=== PATIENT | female | born 1935 | race Caucasian/White ===

== ENCOUNTER 2019-11-20 14:03 | Emergency (ER) | payer MEDICARE, SELFPAY ==
[2019-11-20 14:22] VITALS: BMI 34.7
--- NOTE | 2019-11-20 14:26 | ED_ITS ---
HPI - Back Pain/Injury General: Chief Complaint: Back Pain/Injury Stated Complaint: fall Time Seen by Provider: 11/20/19 14:22 Source: patient Mode of arrival: ambulatory Limitations: no limitations History of Present Illness: HPI Narrative: 84-year-old female who states she is mowing last Monday and believes she injured her back. She states she is had low back pain since then that is worsened. States paraspinal and has no radiation. She denies any bowel or bladder incontinence. States pain is currently a 7 out of 10 and is much worse with walking. It is improved with rest. MD elicited complaint: back pain Associated symptoms: Deny abdominal pain, chills, dysuria, fever(s), nausea or vomiting Review of Systems Const: Denies: fever(s), chills, body aches or change in appetite Eyes: Denies: blurry vision or eye discomfort ENMT: Denies: throat pain or dental pain Card: Denies: chest pain Resp: Denies: dyspnea GI: Denies: abdominal pain, nausea, vomiting or diarrhea : Denies: dysuria Musc: Reports: back pain Skin/Breast: Denies: rash Neuro: Denies: headache(s) Psych: Denies: depression Orion/Lymph: Denies: easy bruising All/Imm: Denies: urticaria PFSH ED PFSH: Social History Smoking and tobacco status: former smoker Physical Exam Const: COMMON NORMALS: no acute distress, patient oriented x3 and healthy appearing HENMT: COMMON NORMALS: normocephalic and atraumatic HEAD & SCALP: normocephalic and atraumatic Eye: COMMON NORMALS: Equal, round and reactive pupils present and EOMs intact bilaterally PUPIL: Yes Equal, round and reactive pupils present Neck/C-Spine: COMMON NORMALS: full ROM and supple Chest: COMMONS NORMALS: normal inspection of the chest and normal palpation of entire chest wall Resp: COMMON NORMALS: normal respiratory effort, No retractions, No use of accessory muscles and clear to auscultation bilaterally AUSCULTATION: clear to auscultation bilaterally Cardio: COMMON NORMALS: regular rate, regular rhythm and No murmurs present (Cardio) RATE: regular rate RHYTHM: regular rhythm GI: COMMON NORMALS: Normal to inspection, nondistended, normoactive bowel sounds present, Soft to palpation, non-tender and no masses PALPATION: Yes Soft to palpation Back/Pelvis: OTHER: Paraspinal tenderness with no midline tenderness no saddle anesthesia Extremity: COMMON NORMALS: normal to inspection and full ROM Neuro: COMMON NORMALS: patient oriented x3, moves all extremities and no focal motor deficits Psych: COMMON NORMALS: mental status grossly normal, Normal thought process present and cooperative THOUGHT PROCESS: Normal thought process present Skin: COMMON NORMALS: no rashes or lesions noted and no wounds GENERAL SKIN EXAM: no rashes or lesions noted Course Vital Signs: Vital signs: Vital Signs Temperature 98.3 F 11/20/19 14:28 Pulse Rate 91 11/20/19 15:20 Respiratory Rate 18 11/20/19 15:20 Blood Pressure 147/52 11/20/19 15:20 Pulse Oximetry 95 11/20/19 15:20 MDM - Back Pain/Injury MDM Narrative: Medical decision making narrative: 10-year-old presents here with lumbar pain is likely muscular in nature. Patient has no signs of cord compression or epidural abscess. Patient placed on Naprosyn and Robaxin is to follow-up with primary care doctor next week. She is to return if worsening. Imaging Data^: X-ray lumbar: Attestation: I personally reviewed and interpreted this imaging study as follows: My impression: No acute abnormalities Discharge Plan Discharge Patient Disposition: Home, Self-Care Clinical Impression: Strain of lumbar region Qualifiers: Encounter type: initial encounter Qualified Code(s): S39.012A - Strain of muscle, fascia and tendon of lower back, initial encounter Condition: Stable Prescriptions: New Robaxin-750 750 mg tablet 750 mg PO Q6H Qty: 30 RF: 0 Naprosyn 500 mg tablet 500 mg PO BID PRN (Reason: pain) Qty: 20 RF: 0 No Action meclizine 25 mg tablet 25 mg PO QID RF: 0 potassium chloride [Klor-Con 10] 10 mEq tablet extended release 10 meq PO DAILY RF: 0 albuterol sulfate 2.5 mg /3 mL (0.083 %) solution for nebulization 2.5 mg INHALATION Q4H PRNRF: 0 Discharge Orders: Discharge Order (Routine); Ordered 11/20/19 Ordered By: Suraj Sal Referrals: Raymundo Prasad [Primary Care Provider] - Discharge Diet: Advance as tolerated Discharge Activity: Resume usual activity Patient Instructions: Low Back Strain (ED), Acute Low Back Pain (ED) Discharge Date/Time: 11/20/19 15:20 Coding Level of Care Code ED Workers' Compensation Claims Examiner for Evangelista Fwjana Exam Comprehensive
--- NOTE | 2019-11-20 14:26 | XR_ITS ---
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 Mild compression changes of th e L5 vertebra seen. There is mild compression changes also seen of the L2 vertebra. There is spurring anteriorly [id number]. There is heavy arteriosclerotic changes of the aorta. XR/XR lumbar spine 2-3V* [id number] IMPRESSION: Compression changes L5 and mild compression L2. Degenerate changes of the lumbar spine.
[2019-11-20 14:28] VITALS: BP 162/67; PULSE 90; RESP 18; TEMP 36.8; O2SAT 93
[2019-11-20] MEDS: methocarbamol 750 mg Tablet PO (14:56)
[2019-11-20] MEDS: ketorolac 30 mg/mL INJ 15 MG IM (14:58)
[2019-11-20 15:20] VITALS: BP 147/52; PULSE 91; RESP 18; O2SAT 95
== END 2019-11-20 15:20 | disposition home or self-care (01) ==
PROVIDERS: Emergency Provider Emergency Medicine; PCP Family Medicine
DX: S39.012A Strain of muscle, fascia and tendon of lower back, initial encounter (principal); X58.XXXA Exposure to other specified factors, initial encounter; Z87.891 Personal history of nicotine dependence
CPT/HCPCS: 12345; 72100; 96372; 99281; 99283; J1885

== ENCOUNTER 2019-12-22 07:50 | Emergency (ER) | payer MEDICARE, SELFPAY ==
[2019-12-22 07:59] VITALS: BP 122/86; PULSE 85; RESP 18; TEMP 36.7; O2SAT 96; BMI 31.6
[2019-12-22 08:13] VITALS: BP 131/57; PULSE 86; RESP 18; O2SAT 96
--- NOTE | 2019-12-22 08:15 | XRR_ITS ---
PROCEDURE INFORMATION: Exam: XR Right Shoulder Exam date and time: 12/22/2019 8:50 AM Age: 84 years old Clinical indication: Pain; Shoulder; Right; Additional info: Fall TECHNIQUE: Imaging protocol: XR Right shoulder. Views: 2 or more views. COMPARISON: No relevant prior studies available. FINDINGS: Bones/joints: Moderate degenerative changes of the acromioclavicular joint. Degenerative changes of the glenohumeral joint Scapula normal Visualized ribs and visualized pulmonary parenchyma normal Coracoid process normal Soft tissues: Normal. XR/XR shoulder RT min 2V* [id number] IMPRESSION: Degenerative changes of the acromioclavicular joint and glenohumeral joint.
--- NOTE | 2019-12-22 08:15 | XRR_ITS ---
PROCEDURE INFORMATION: Exam: XR Pelvis Exam date and time: 12/22/2019 8:50 AM Age: 84 years old Clinical indication: Pelvic pain; Additional info: Fall TECHNIQUE: Imaging protocol: XR pelvis. Views: 1 or 2 view. COMPARISON: CT abdomen pelvis w con* [id number] 03/17/2017 5:01 PM FINDINGS: Bones/joints: osseous structures of the pelvis without an acute process. rami are intact. Sacroiliac joints without separation/diastases/fracture. Iliac bones unremarkable/noncontributory Degenerative changes within the hips: Degenerative changes within the visualized portions of the caudal aspect of the lumbar spine. Moderate to severe Soft tissues: Unremarkable. XR/XR pelvis 1-2V* [id number] IMPRESSION: No acute process.
--- NOTE | 2019-12-22 08:15 | XRR_ITS ---
PROCEDURE INFORMATION: Exam: XR Lumbosacral Spine, 2 or 3 Views Exam date and time: 12/22/2019 8:50 AM Age: 84 years old Clinical indication: Low back pain; Additional info: Fall TECHNIQUE: Imaging protocol: XR of the lumbosacral spine, 2 or 3 views. COMPARISON: CR XR lumbar spine 2-3V* [id number] 11/20/2019 2:36 PM FINDINGS: Vertebrae: Severe diffuse degenerative disc disease reflected as severe decrease in disc space height and anterior endplate osteophytosis. No spondylolisthesis No pars defect. Mild compression fracture of the superior endplate of L5. Soft tissues: Unremarkable. XR/XR lumbar spine 2-3V* [id number] IMPRESSION: 1. Severe diffuse degenerative disc disease. 2. Mild compression fracture of the superior endplate of L5. Previously noted. Mildly progressive.
--- NOTE | 2019-12-22 08:15 | XRR_ITS ---
PROCEDURE INFORMATION: Exam: XR Cervical Spine, 2 or 3 Views Exam date and time: 12/22/2019 8:50 AM Age: 84 years old Clinical indication: Neck pain; Additional info: Fall TECHNIQUE: Imaging protocol: XR of the cervical spine, 2 or 3 views. COMPARISON: No relevant prior studies available. FINDINGS: Vertebrae: Alignment is normal. posterior vertebral line and the spinal laminar line normal odontoid process normal no fracture degenerative disc disease most pronounced C3-C4, C4-C5, C5-C6 and C6-C7 reflected as disk space narrowing and anterior osteophyte formation. Soft tissues: Unremarkable. Other findings: Somewhat limited characterization of C7. Consider additional views versus CT. XR/XR cervical spine 3V* [id number] IMPRESSION: 1. Degenerative disc disease most pronounced C3-C4, C4-C5, C5-C6 and C6-C7 reflected as disk space narrowing and anterior osteophyte formation. 2. Somewhat limited characterization of C7. Consider additional views versus CT.
--- NOTE | 2019-12-22 08:18 | ED_ITS ---
HPI - Fall General: Chief Complaint: Fall Stated Complaint: back/hip/shoulder pain post FALL 2 days ago Time Seen by Provider: 12/22/19 08:13 History of Present Illness: HPI Narrative: Patient just gotten out of bed 2 days ago and stumbled and fell. She complains of pain to her neck, right shoulder, low back, and hips. complaint: fall Onset (ago): day(s) (2) Fall from: standing Place fall occurred: home Loss of consciousness: None Prolonged down time: no Symptoms prior to fall: none Context: tripped/slipped Location of injury: neck, back and pelvis Location of injury - extremities: Right: shoulder Severity: moderate Associated symptoms-after fall: Reports no associated symptoms Review of Systems General: Reports: 10 or more systems reviewed and unremarkable except in HPI and below PFSH ED PFSH: Social History Smoking and tobacco status: former smoker Alcohol intake: never Substance/Drug Use: never Physical Exam Const: COMMON NORMALS: no acute distress, patient oriented x3, no limitations and alert HENMT: COMMON NORMALS: normocephalic, atraumatic, external ears normal and Normal external nose present HEAD & SCALP: normocephalic and atraumatic FACE & SINUS: normal facial exam NOSE: Normal external nose present EXTERNAL EAR: Yes external ears normal MOUTH: Normal oral and palatal mucosa present Neck/C-Spine: COMMON NORMALS: full ROM, no lymphadenopathy, supple, no meningeal signs and no JVD GENERAL: Yes normal visual inspection Resp: COMMON NORMALS: normal respiratory effort, No retractions, No use of accessory muscles and clear to auscultation bilaterally AUSCULTATION: clear to auscultation bilaterally Cardio: COMMON NORMALS: no JVD, regular rate and regular rhythm RATE: regular rate RHYTHM: regular rhythm GI: COMMON NORMALS: Normal to inspection, nondistended, normoactive bowel sounds present, Soft to palpation, non-tender, No hepatosplenomegaly present and no masses INSPECTION: Yes normal to inspection AUSCULTATION: Yes normoactive bowel sounds PALPATION: Yes Soft to palpation and Yes No hepatosplenomegaly present PERCUSSION: normal to percussion : COMMON NORMALS: Yes no CVA tenderness and Yes normal external appearance BLADDER/KIDNEY EXAM: Yes no CVA tenderness Back/Pelvis: COMMON NORMALS: no CVA tenderness, thoracic and lumbar spine normal to inspection, no thoracic nor lumbar tenderness, thoraco-lumbar ROM normal and straight leg raise negative bilaterally Extremity: COMMON NORMALS: normal to inspection, full ROM, capillary refill normal, no joint enlargement, no clubbing, cyanosis or edema, no calf tenderness and no pedal edema Neuro: COMMON NORMALS: patient oriented x3, moves all extremities, no focal motor deficits and no sensory deficits noted SENSORIUM/ORIENTATION: Yes alert MENINGEAL SIGNS: Yes no meningeal signs Psych: COMMON NORMALS: mental status grossly normal, Normal thought process present, cooperative, normal affect and speech normal SPEECH: Yes normal speech THOUGHT PROCESS: Normal thought process present Skin: COMMON NORMALS: no rashes or lesions noted, no wounds, turgor normal, no jaundice, no petechiae and no mottling GENERAL SKIN EXAM: no rashes or lesions noted and turgor normal Course Vital Signs: Vital signs: Vital Signs Temperature 98.1 F 12/22/19 07:59 Pulse Rate 85 12/22/19 09:24 Respiratory Rate 16 12/22/19 09:24 Blood Pressure 131/57 12/22/19 09:24 Pulse Oximetry 96 12/22/19 09:24 MDM - Fall Imaging Data^: Xray Ortho: My impression: No acute bony abnormality or injury Discharge Plan Discharge Patient Disposition: Home, Self-Care Clinical Impression: Fall Qualifiers: Encounter type: initial encounter Qualified Code(s): W19.XXXA - Unspecified fall, initial encounter Acute cervical sprain Qualifiers: Encounter type: initial encounter Qualified Code(s): S13.9XXA - Sprain of joints and ligaments of unspecified parts of neck, initial encounter Lumbar sprain Qualifiers: Encounter type: initial encounter Qualified Code(s): S33.5XXA - Sprain of ligaments of lumbar spine, initial encounter Contusion of shoulder Qualifiers: Encounter type: initial encounter Laterality: right Qualified Code(s): S40.011A - Contusion of right shoulder, initial encounter Contusion of hip Qualifiers: Encounter type: initial encounter Laterality: unspecified laterality Qualified Code(s): S70.00XA - Contusion of unspecified hip, initial encounter Condition: Stable Prescriptions: New tramadol 50 mg tablet 50 mg PO Q6H PRN (Reason: pain) Qty: 15 RF: 0 No Action meclizine 25 mg tablet 25 mg PO QID RF: 0 potassium chloride [Klor-Con 10] 10 mEq tablet extended release 10 meq PO DAILY RF: 0 albuterol sulfate 2.5 mg /3 mL (0.083 %) solution for nebulization 2.5 mg INHALATION Q4H PRNRF: 0 Robaxin-750 750 mg tablet 750 mg PO Q6H Qty: 30 RF: 0 Naprosyn 500 mg tablet 500 mg PO BID PRN (Reason: pain) Qty: 20 RF: 0 Discharge Orders: Discharge Order (Routine); Ordered 12/22/19 Ordered By: Clint Diaz Referrals: Raymundo Prasad [Primary Care Provider] - Coding Level of Care Code ED [employer] Data Warehouse Developer for Chg Fwd Exam Comprehensive
[2019-12-22 09:24] VITALS: BP 131/57; PULSE 85; RESP 16; O2SAT 96
[2019-12-22 09:36] VITALS: BP 125/65; PULSE 83; RESP 16; TEMP 37; O2SAT 99
== END 2019-12-22 09:46 | disposition home or self-care (01) ==
PROVIDERS: Emergency Provider Family Medicine; PCP Family Medicine
DX: S33.5XXA Sprain of ligaments of lumbar spine, initial encounter (principal); S13.9XXA Sprain of joints and ligaments of unspecified parts of neck, initial encounter; S40.011A Contusion of right shoulder, initial encounter; S70.00XA Contusion of unspecified hip, initial encounter; Z87.891 Personal history of nicotine dependence; W01.0XXA Fall on same level from slipping, tripping and stumbling without subsequent striking against object, initial encounter
CPT/HCPCS: 12345; 72040; 72100; 72170; 73030; 99281; 99283

== ENCOUNTER 2020-01-09 09:08 | Emergency (ER) | payer MEDICARE, SELFPAY ==
[2020-01-09 09:19] VITALS: BP 158/79; PULSE 86; RESP 18; TEMP 36.8; O2SAT 96; BMI 34.3
--- NOTE | 2020-01-09 09:25 | CT_ITS ---
WS: [id number] CT HEAD NONCONTRAST HISTORY: headache, vomiting TECHNIQUE: Contiguous axial imaging performed through the brain in 2.5 mm imaging. Bone and soft tiss ue windows. Sagittal and coronal reformats reviewed. All CT scans at [facility] use at ast one of these dose optimization techniques: automated exposure control; mA and/or kV adjustment pe r patient size (includes targeted exams where dose is matched to clinical indication); or iterative r econstruction. DLP: 675.13 mGy.cm COMPARISON: 07/10/2010 No acute intracranial hemorrhage, midline shift or mass effect. Mild atrophy and mild chronic microvascular ischemic disease. There is a very small lacunar infarct i n the RIGHT caudate body. Ventricles: Normal size with no hydrocephalus. Paranasal sinuses: As visualized are clear. Mastoid air cells: Well pneumatized. Calvarium and scalp: Hyperostosis frontalis interna. CT/CT head wo con* [id number] IMPRESSION: 1. No acute intracranial hemorrhage or edema. 2. Very mild atrophy and chronic ischemic disease.
--- NOTE | 2020-01-09 09:40 | W.ED.HA ---
HPI - Headache General: Chief Complaint: Headache Stated Complaint: headache n/v Time Seen by Provider: 01/09/20 09:19 History of Present Illness: HPI Narrative: This patient is an 84-year-old female who presents today with headache. She said she normally does not get headaches which she said this would for about 4 days. She feels it in the front of her head and is very severe. She has had nausea with that and yesterday vomited. She also fell 6 days ago but does not think she hit her head. She hurt her foot and ankle and was seen in [place] for that. She did not have a head CT at that time. The reason she fell was dizziness which is something that she chronically has. She said she continues to be a little bit dizzy but it is not worse than her usual dizziness and in fact seems a little bit better. She denies any visual changes, numbness, tingling, weakness. MD elicited complaint: headache Pertinent past history: recent trauma (Fell but denies hitting her head) Onset (ago): day(s) (4) Associated symptoms: Deny chest pain or fever(s) Review of Systems General: Reports: 10 or more systems reviewed and unremarkable except in HPI and below Const: Denies: fever(s) or chills ENMT: Denies: odynophagia Card: Denies: chest pain or palpitations Resp: Denies: dyspnea or productive cough Neuro: Reports: headache(s) and dizziness [facility] ED PFSH: Social History Smoking and tobacco status: former smoker Alcohol intake: never Physical Exam Const: COMMON NORMALS: no acute distress, patient oriented x3, no limitations and alert GENERAL APPEARANCE: cooperative and comfortable HENMT: HEAD & SCALP: normal to inspection FACE & SINUS: normal facial exam Eye: GENERAL EYE: appearance normal, both eyes and all related structures Neck/C-Spine: COMMON NORMALS: supple, no meningeal signs and no JVD Chest: COMMONS NORMALS: normal inspection of the chest Resp: COMMON NORMALS: normal respiratory effort, No use of accessory muscles and clear to auscultation bilaterally AUSCULTATION: clear to auscultation bilaterally Cardio: COMMON NORMALS: no JVD, regular rate, regular rhythm and No murmurs present (Cardio) RATE: regular rate RHYTHM: regular rhythm GI: COMMON NORMALS: Normal to inspection, nondistended, normoactive bowel sounds present, Soft to palpation and non-tender INSPECTION: Yes normal to inspection AUSCULTATION: Yes normoactive bowel sounds PALPATION: Yes Soft to palpation Back/Pelvis: COMMON NORMALS: thoracic and lumbar spine normal to inspection Extremity: COMMON NORMALS: normal to inspection Neuro: COMMON NORMALS: patient oriented x3, moves all extremities, no focal motor deficits, no sensory deficits noted and gait normal SENSORIUM/ORIENTATION: Yes alert MENINGEAL SIGNS: Yes no meningeal signs Psych: COMMON NORMALS: mental status grossly normal, cooperative and normal affect Skin: COMMON NORMALS: no rashes or lesions noted and turgor normal GENERAL SKIN EXAM: no rashes or lesions noted and turgor normal Course ED course: Patient reports an allergy to all pain medicines. She was given Benadryl and Reglan and Toradol as well as fluids for her headache. She did report some improvement. CT of her head was done which was negative. Her neuro exam is nonfocal. She was able to ambulate in the ED without significant difficulty. She has been seeing her primary care doctor for this. Given the normal work-up today and lack of findings on neuro exam I think she safe to be discharged home to continue outpatient follow-up. Vital Signs: Vital signs: Vital Signs Temperature 98.2 F 01/09/20 09:19 Pulse Rate 78 01/09/20 12:20 Respiratory Rate 17 01/09/20 12:20 Blood Pressure 142/72 01/09/20 12:20 Pulse Oximetry 95 01/09/20 12:20 MDM - Headache Lab Data: Labs: Lab Results 01/09/20 01/09/20 01/09/20 Range/Units 09:39 10:08 10:08 WBC 6.3 (4.0-10.0) 10^3/ uL RBC 4.55 (4.1-5.3) 10^6/u L Hgb 13.7 (11.5-15.3) g/dL Hct 46.0 (37.0-47.0) % MCV 101.1 H (81-99) fL MCH 30.1 (28.0-34.0) pg MCHC 29.8 L (30.0-36.0) g/dL RDW 12.0 L (12.1-15.1) % Plt Count 248 (130-400) 10^3/c mm MPV 10.0 (7.4-10.4) fL Neut % (Auto) 75.5 % Lymph % (Auto) 15.3 % Haskell % (Auto) 6.0 % Eos % (Auto) 1.9 % Baso % (Auto) 0.8 % Neut # (Auto) 4.79 (1.8-7.7) 10^3/u L Lymph # (Auto) 1.0 (0.8-4.8) 10^3/u L Haskell # (Auto) 0.4 (0.2-0.9) 10^3/u L Eos # (Auto) 0.1 (0.0-0.8) 10^3/u L Baso # (Auto) 0.1 (0.0-0.1) 10^3/u L Nucleated RBC % (a uto) 0 % Nucleated RBCs # 0.0 /100WBC ESR 25 H (0-15) mm/hr Sodium (136-145) mmol/L Potassium (3.5-5.1) mmol/L Chloride (98-107) mmol/L Carbon Dioxide (22-29) mmol/L Anion Gap (5-19) BUN (8-23) mg/dL Creatinine (0.5-0.9) mg/dL GFR Calculation Glucose (65-115) mg/dL Calculated Osmolal ity (285-295) mOsm/k g Calcium (8.5-10.5) mg/dL Total Bilirubin (0.15-1.2) mg/dL AST (0-32) U/L ALT (0-33) U/L Alkaline Phosphata se (35-105) IU/L C-Reactive Protein (0.0-4.9) mg/L Total Protein (6.6-8.7) g/dL Albumin (3.5-5.2) g/dL Globulin (1.3-4.6) g/dL Urine Color Yellow (Yellow) Urine Appearance Clear (CLEAR) Urine pH 7.0 (5-7) Ur Specific Gravit y 1.010 (1.005-1.030) Urine Protein Neg (Negative) Urine Glucose (UA) Norm (Normal) Urine Ketones Negative (Negative) Urine Blood Neg (Negative) Urine Nitrate Negative (Negative) Urine Bilirubin Neg (NEGATIVE) Urine Urobilinogen Norm (Negative) mg/dL Ur Leukocyte Dayana ase Trace H (Negative) Urine RBC 0-4 H (0-2) /hpf Urine WBC 5-10 H (0-5) /hpf Ur Squamous Epith Cells 0-4 H (0-5) Amorphous Sediment Not Reportable Urine Bacteria 1+ H (NONE) Urine Mucus 1+ 01/09/20 Range/Units 10:08 WBC (4.0-10.0) 10^3/ uL RBC (4.1-5.3) 10^6/u L Hgb (11.5-15.3) g/dL Hct (37.0-47.0) % MCV (81-99) fL MCH (28.0-34.0) pg MCHC (30.0-36.0) g/dL RDW (12.1-15.1) % Plt Count (130-400) 10^3/c mm MPV (7.4-10.4) fL Neut % (Auto) % Lymph % (Auto) % Haskell % (Auto) % Eos % (Auto) % Baso % (Auto) % Neut # (Auto) (1.8-7.7) 10^3/u L Lymph # (Auto) (0.8-4.8) 10^3/u L Haskell # (Auto) (0.2-0.9) 10^3/u L Eos # (Auto) (0.0-0.8) 10^3/u L Baso # (Auto) (0.0-0.1) 10^3/u L Nucleated RBC % (a uto) % Nucleated RBCs # /100WBC ESR (0-15) mm/hr Sodium 140 (136-145) mmol/L Potassium 4.2 (3.5-5.1) mmol/L Chloride 103 (98-107) mmol/L Carbon Dioxide 32 H (22-29) mmol/L Anion Gap 9.2 (5-19) BUN 9 (8-23) mg/dL Creatinine 0.8 (0.5-0.9) mg/dL GFR Calculation Not Reportable Glucose 102 (65-115) mg/dL Calculated Osmolal ity 286 (285-295) mOsm/k g Calcium 8.6 (8.5-10.5) mg/dL Total Bilirubin 0.4 (0.15-1.2) mg/dL AST 16 (0-32) U/L ALT 16 (0-33) U/L Alkaline Phosphata se 102 (35-105) IU/L C-Reactive Protein 1.7 (0.0-4.9) mg/L Total Protein 6.7 (6.6-8.7) g/dL Albumin 3.8 (3.5-5.2) g/dL Globulin 2.9 (1.3-4.6) g/dL Urine Color (Yellow) Urine Appearance (CLEAR) Urine pH (5-7) Ur Specific Gravit y (1.005-1.030) Urine Protein (Negative) Urine Glucose (UA) (Normal) Urine Ketones (Negative) Urine Blood (Negative) Urine Nitrate (Negative) Urine Bilirubin (NEGATIVE) Urine Urobilinogen (Negative) mg/dL Ur Leukocyte Dayana ase (Negative) Urine RBC (0-2) /hpf Urine WBC (0-5) /hpf Ur Squamous Epith Cells (0-5) Amorphous Sediment Urine Bacteria (NONE) Urine Mucus Discharge Plan Discharge Patient Disposition: Home Clinical Impression: Dizziness Headache Qualifiers: Headache type: unspecified Headache chronicity pattern: unspecified pattern Intractability: not intractable Qualified Code(s): R51 - Headache Condition: Stable Prescriptions: No Action meclizine 25 mg tablet 25 mg PO QID PRN (Reason: unknown) RF: 0 albuterol sulfate 2.5 mg /3 mL (0.083 %) solution for nebulization 2.5 mg INHALATION Q4H PRN (Reason: unknown) RF: 0 naproxen [Naprosyn] 500 mg tablet 500 mg PO BID PRN (Reason: pain) Qty: 20 RF: 0 tramadol 50 mg tablet 50 mg PO Q6H PRN (Reason: pain) Qty: 15 RF: 0 prednisone 10 mg Tablet 10 - 20 mg PO DAILY PRN (Reason: unknown) RF: 0 tizanidine 4 mg tablet 4 mg PO BEDTIME PRN (Reason: unknown) RF: 0 ibuprofen [Advil] 200 mg Tablet 800 mg PO PRN RF: 0 potassium gluconate 595 mg (99 mg) Tablet 595 mg PO DAILY RF: 0 diclofenac sodium 1 % gel 2 g TOPICAL BID PRN (Reason: unknown) RF: 0 baclofen 5 mg tablet 5 mg PO TID PRN (Reason: unknown) RF: 0 Vitamin B-12 2 tab PO DAILY RF: 0 ondansetron HCl 4 mg tablet 4 mg PO Q6H PRN (Reason: n/v) RF: 0 oxycodone 5 mg tablet 5 mg PO Q8H PRN (Reason: Pain) RF: 0 Discharge Orders: Discharge Order (Routine); Ordered 01/09/20 Ordered By: Ruby Levi Referrals: Raymundo Prasad [Primary Care Provider] - Discharge Diet: Usual diet Discharge Activity: Resume usual activity Patient Instructions: Acute Headache (ED) Activity Restrictions/Additional Instructions: Follow up with Dr. Prasad regarding your headache and dizziness. Use care when walking - use a cane or walker for support. Return if new or worse symptoms. Coding Level of Care Code ED [employer] Kn[employer] Machine Operator for Evangelista Britt
[2020-01-09 09:54] LABS: Add Urine Microscopic? YES; Bilirubin Urine Neg (NEGATIVE); Blood Urine Neg (Negative); Glucose Urine UA Norm (Normal); Ketones Urine Negative (Negative); Leukocyte Esterase Urine Trace (Negative); Nitrate Urine Negative (Negative); Protein Urine Neg (Negative); Urine Appearance Clear (CLEAR); Urine Color Yellow (Yellow); Urobilinogen Urine Norm (Negative)
[2020-01-09 10:00] LABS: Add Urine Culture? Yes; Bacteria Urine 1+; Mucus Urine 1+; RBC Urine 0-4 /hpf (0-2); Squamous Epithelial Cell Urine 0-4 (0-5)
[2020-01-09] MEDS: metoclopramide 5 mg/mL SDV 2 mL IVP (10:10)
[2020-01-09] MEDS: diphenhydrAMINE 50 mg/mL SDV 1mL 25 MG IVP (10:12)
[2020-01-09] MEDS: sodium chloride 0.9% 500 ML 999 ML IV (10:14)
[2020-01-09 10:18] LABS: Basophils # 0.1 10^3/uL (0.0-0.1); Basophils % 0.8 %; Eosinophils # 0.1 10^3/uL (0.0-0.8); Eosinophils % 1.9 %; Hemoglobin 13.7 g/dL (11.5-15.3); Lymphocytes % 15.3 %; Mean Corpuscular HGB Conc 29.8 g/dL (30.0-36.0); Mean Corpuscular Hemoglobin 30.1 pg (28.0-34.0); Mean Corpuscular Volume 101.1 fL (81-99); Monocytes # 0.4 10^3/uL (0.2-0.9); Neutrophils # 4.79 10^3/uL (1.8-7.7); Neutrophils % 75.5 %; Nucleated Red Blood Cells % 0 %; Platelet Count 248 10^3/cmm (130-400); Red Blood Count 4.55 10^6/uL (4.1-5.3); White Blood Count 6.3 10^3/uL (4.0-10.0)
[2020-01-09 10:19] VITALS: BP 152/65; PULSE 92; O2SAT 96
[2020-01-09 10:36] LABS: Alanine Aminotransferase 16 U/L (0-33); Albumin Level 3.8 g/dL (3.5-5.2); Alkaline Phosphatase 102 IU/L (35-105); Anion Gap 9.2 (5-19); Aspartate Amino Transferase 16 U/L (0-32); Blood Urea Nitrogen 9 mg/dL (8-23); C Reactive Protein 1.7 mg/L (0.0-4.9); Calcium 8.6 mg/dL (8.5-10.5); Carbon Dioxide 32 mmol/L (22-29); Chloride 103 mmol/L (98-107); Globulin 2.9 g/dL (1.3-4.6); Glucose 102 mg/dL (65-115); Osmolality Calculated 286 mOsm/kg (285-295); Potassium 4.2 mmol/L (3.5-5.1); Sodium 140 mmol/L (136-145); Total Bilirubin 0.4 mg/dL (0.15-1.2); Total Protein 6.7 g/dL (6.6-8.7)
[2020-01-09 11:06] LABS: Erythrocyte Sedimentation Rate 25 mm/hr (0-15)
[2020-01-09 11:38] VITALS: BP 121/55; PULSE 98; RESP 18; O2SAT 95
[2020-01-09] MEDS: ketorolac 30 mg/mL INJ 15 MG IVP (12:15)
[2020-01-09] MEDS: cefTRIAXone 1,000 MG in sodium chloride 0.9% (plus) 50 ML 100 MG IV (12:17)
[2020-01-09 12:20] VITALS: BP 142/72; PULSE 78; RESP 17; O2SAT 95
[2020-01-09 14:11] VITALS: BP 149/69; PULSE 81; RESP 16; O2SAT 93
== END 2020-01-09 14:11 | disposition home or self-care (01) ==
PROVIDERS: Emergency Provider Emergency Medicine; PCP Family Medicine
DX: R51 Headache (principal); R42 Dizziness and giddiness; Z87.891 Personal history of nicotine dependence; Z79.899 Other long term (current) drug therapy
CPT/HCPCS: 12345; 70450; 80053; 81001; 85025; 85651; 86140; 87086; 96365; 96375; 99283; 99284; J0696; J1200; J1885; J2765; J7040

== ENCOUNTER 2020-07-12 06:48 | Emergency (ER) | payer MEDICARE, SELFPAY ==
[2020-07-12 06:50] VITALS: BP 138/55; PULSE 74; RESP 18; TEMP 36.4; O2SAT 93; BMI 39.4
--- NOTE | 2020-07-12 06:58 | XRR_ITS ---
PROCEDURE INFORMATION: Exam: XR Chest, 1 View Exam date and time: 07/12/2020 7:00 AM Age: 84 years old Clinical indication: Dyspnea TECHNIQUE: Imaging protocol: XR of the chest Views: 1 view. COMPARISON: [place] Chest 1 [place] [id number] 08/06/2017 3:29 PM FINDINGS: Lungs: Emphysematous change and interstitial prominence. Asymmetric left basilar airspace/pleural disease, superimposed upon prominent epicardial fat. Heart/Mediastinum: no cardiomegaly. Vasculature: calcification of the thoracic aorta. Bones/joints: osteopenia and degenerative change. Other findings: Brassiere artifact. XR/XR chest 1V portable [id number] IMPRESSION: Asymmetric left basilar airspace/pleural disease, superimposed upon prominent epicardial fat.
--- NOTE | 2020-07-12 06:59 | ECG_ITS ---
[facility] Test Date: 2020-07-12 Pat Name: Brady Nails Department: Room: Gender: Female Resourcing Advisor: : 1935 Requested By: Vineet Valenzuela Order Number: [id number] Estefani MD: JULES MCKEON Measurements Intervals [place] Rate: 67 P: 55 [place]: 125 QRS: 41 QRSD: 93 T: 35 QT: 413 QTc: 437 Interpretive Statements SINUS RHYTHM Compared to ECG 08/06/2017 15:16:26 Sinus tachycardia no longer present Ventricular premature complex(es) no longer present Electronically Signed On 07-12-2020 21:17:15 YARDAGE CONTROL CLERK by JULES MCKEON [email or web address] [email or web address] health [email or web address] hospitalAthersys/store/NU/[id number] f
--- NOTE | 2020-07-12 07:01 | ED_ITS ---
HPI - Nausea/Vomiting/Diarrhea General: Chief complaint: Nausea/Vomiting/Diarrhea Stated complaint: N/V Time Seen by Provider: 07/12/20 06:50 History of Present Illness: HPI Narrative: The patient is an 84-year-old female with past medical history chronic dizziness and COPD who comes to the ER complaining this morning she got up and had her usual dizziness when she gets out of bed however she became nauseous and vomited once. Someone living with her called an ambulance to evaluate her and she did not want to come to the hospital but was encouraged to. She was given Zofran in the ambulance and says she now feels free of nausea and back to her baseline levels of dizziness and shortness of breath. MD elicited complaint: nausea and vomiting Associated nausea: Yes Associated abdominal pain: No Location of pain: None Severity: mild Associated symtoms: Reports no associated symptoms and nausea; Denies anxiety, change in vision, chest pain, dizziness, fatigue, headache(s) or palpitations Review of Systems General: Reports: 10 or more systems reviewed and unremarkable except in HPI and below Const: Denies: fatigue Eyes: Denies: change in vision, blurry vision or eye redness ENMT: Denies: throat pain, swelling of lips/tongue, ear or mastoid pain or nasal congestion Card: Denies: chest pain, palpitations, irregular heart rhythm, edema, dyspnea on exertion or orthopnea Resp: Denies: dyspnea, productive cough or non-productive cough GI: Reports: nausea : Denies: flank pain, difficulty voiding, urinary frequency or urinary urgency Musc: Denies: neck pain, back pain, extremity pain, joint pain, joint redness, limited range of motion or muscle weakness Skin/Breast: Denies: rash, pruritus, erythema, skin pain or skin tenderness Neuro: Denies: headache(s), numbness in extremities, weakness in extremities, sensory changes, difficulty walking, dizziness, confusion or Slurred speech present Psych: Denies: anxiety or depression Endo: Denies: polyuria All/Imm: Denies: urticaria, throat swelling or tongue swelling PFSH ED PFSH: Medical History COPD (chronic obstructive pulmonary disease) Social History Smoking and tobacco status: former smoker Alcohol intake: never Physical Exam Const: COMMON NORMALS: no acute distress, average body habitus, patient oriented x3, no limitations, healthy appearing, alert and well nourished GENERAL APPEARANCE: cooperative, comfortable, well kempt and well developed ORIENTATION/CONSCIOUSNESS: Yes awake, Yes oriented to person, Yes oriented to place and Yes oriented to time HENMT: COMMON NORMALS: normocephalic, external ears normal and Normal external nose present HEAD & SCALP: normal to inspection and normocephalic NOSE: Normal external nose present EXTERNAL EAR: Yes external ears normal MOUTH: Normal oral and palatal mucosa present THROAT: posterior oropharynx normal Eye: COMMON NORMALS: Equal, round and reactive pupils present and EOMs intact bilaterally GENERAL EYE: appearance normal, both eyes and all related structures PUPIL: Yes Equal, round and reactive pupils present Neck/C-Spine: COMMON NORMALS: full ROM, no lymphadenopathy, no meningeal signs and no JVD GENERAL: Yes normal visual inspection Lymph: LYMPHATIC: no lymphadenopathy noted Chest: COMMONS NORMALS: normal inspection of the chest and normal palpation of entire chest wall Resp: COMMON NORMALS: normal respiratory effort, No retractions, No use of accessory muscles, clear to auscultation bilaterally and percussion normal EFFORT & INSPECTION: Yes able to speak in complete sentences AUSCULTATION: clear to auscultation bilaterally PERCUSSION: percussion normal Cardio: COMMON NORMALS: no JVD, regular rate, regular rhythm, S1 normal heart sound present, S2 normal heart sound present and Peripheral pulses 2+ throughout RATE: regular rate RHYTHM: regular rhythm HEART SOUNDS: S1 normal heart sound present and S2 normal heart sound present PERIPHERAL PULSES: Peripheral pulses 2+ throughout GI: COMMON NORMALS: Normal to inspection, nondistended, normoactive bowel sounds present, Soft to palpation, non-tender and no masses INSPECTION: Yes normal to inspection PALPATION: Yes Soft to palpation : COMMON NORMALS: Yes no CVA tenderness BLADDER/KIDNEY EXAM: Yes no CVA tenderness Back/Pelvis: COMMON NORMALS: no CVA tenderness, thoracic and lumbar spine normal to inspection, no thoracic nor lumbar tenderness and thoraco-lumbar ROM normal Extremity: COMMON NORMALS: normal to inspection, full ROM, capillary refill normal, no joint enlargement and no pedal edema GENERAL: Yes normal exam except as noted Neuro: COMMON NORMALS: patient oriented x3, CN's II-XII intact bilaterally, moves all extremities, no focal motor deficits, no sensory deficits noted and gait normal SENSORIUM/ORIENTATION: Yes alert, Yes oriented to person, Yes oriented to place and Yes oriented to time MENINGEAL SIGNS: Yes no meningeal signs Psych: COMMON NORMALS: mental status grossly normal, Normal thought process present, cooperative, normal affect and speech normal APPEARANCE: Yes well kempt ATTITUDE: Yes calm SPEECH: Yes normal speech THOUGHT PROCESS: Normal thought process present Skin: COMMON NORMALS: no rashes or lesions noted GENERAL SKIN EXAM: no rashes or lesions noted Course ED course: The patient arrived and vomited a couple times. She was given Zofran and her symptoms resolved. She was requesting discharge. Slight hypokalemia which she was given potassium 4. This will normalize when she quits vomiting as well. Recommended drinking lots of p.o. fluids at home and returning to the ER with worsening symptoms. Chest x-ray showed a left basilar pleural space abnormality. Previous x-ray shows identical finding but the radiologist at that time read it as normal. Will allow for outpatient follow-up of this condition. Notified the patient to get a repeat image at their primary doctor's discretion in 1 week. Discussed the small possibility it could be a cancerous process with them and they understand and will follow up. Vital Signs: Vital signs: Vital Signs Temperature 97.5 F L 07/12/20 06:50 Pulse Rate 66 07/12/20 08:40 Respiratory Rate 14 07/12/20 08:40 Blood Pressure 149/62 07/12/20 08:40 Pulse Oximetry 95 07/12/20 08:40 MDM - Nausea/Vomiting/Diarrhea Lab Data: Labs: Lab Results 07/12/20 07/12/20 07/12/20 Range/Units 06:52 06:52 06:52 WBC 8.5 (4.0-10.0) 10^3/ uL RBC 4.32 (4.1-5.3) 10^6/u L Hgb 13.3 (11.5-15.3) g/dL Hct 42.9 (37.0-47.0) % MCV 99.3 H (81-99) fL MCH 30.8 (28.0-34.0) pg MCHC 31.0 (30.0-36.0) g/dL RDW 12.1 (12.1-15.1) % Plt Count 245 (130-400) 10^3/c mm MPV 10.9 H (7.4-10.4) fL Neut % (Auto) 65.4 % Lymph % (Auto) 23.1 % Bradford % (Auto) 8.2 % Eos % (Auto) 1.9 % Baso % (Auto) 0.8 % Neut # (Auto) 5.53 (1.8-7.7) 10^3/u L Lymph # (Auto) 2.0 (0.8-4.8) 10^3/u L Bradford # (Auto) 0.7 (0.2-0.9) 10^3/u L Eos # (Auto) 0.2 (0.0-0.8) 10^3/u L Baso # (Auto) 0.1 (0.0-0.1) 10^3/u L Nucleated RBC % (a uto) 0 % Nucleated RBCs # 0.0 /100WBC Sodium 147 H (136-145) mmol/L Potassium 3.1 L (3.5-5.1) mmol/L Chloride 99 (98-107) mmol/L Carbon Dioxide 36 H (22-29) mmol/L Anion Gap 15.1 (5-19) BUN 20 (8-23) mg/dL Creatinine 1.0 H (0.5-0.9) mg/dL GFR Calculation Not Reportable Glucose 84 (65-115) mg/dL Calculated Osmolal ity 306 H (285-295) mOsm/k g Lactate (0.5-2.2) mmol/L Calcium 8.5 (8.5-10.5) mg/dL Total Bilirubin 0.3 (0.15-1.2) mg/dL AST 20 (0-32) U/L ALT 16 (0-33) U/L Alkaline Phosphata se 99 (35-105) IU/L Troponin T Baselin e 13 H (0-10) ng/L Total Protein 6.7 (6.6-8.7) g/dL Albumin 3.9 (3.5-5.2) g/dL Globulin 2.8 (1.3-4.6) g/dL Urine Color (Yellow) Urine Appearance (CLEAR) Urine pH (5-7) Ur Specific Gravit y (1.005-1.030) Urine Protein (Negative) Urine Glucose (UA) (Normal) Urine Ketones (Negative) Urine Blood (Negative) Urine Nitrate (Negative) Urine Bilirubin (Negative) Urine Urobilinogen (Negative) mg/dL Ur Leukocyte Dayana ase (Negative) 07/12/20 07/12/20 Range/Units 07:11 07:18 WBC (4.0-10.0) 10^3/ uL RBC (4.1-5.3) 10^6/u L Hgb (11.5-15.3) g/dL Hct (37.0-47.0) % MCV (81-99) fL MCH (28.0-34.0) pg MCHC (30.0-36.0) g/dL RDW (12.1-15.1) % Plt Count (130-400) 10^3/c mm MPV (7.4-10.4) fL Neut % (Auto) % Lymph % (Auto) % Bradford % (Auto) % Eos % (Auto) % Baso % (Auto) % Neut # (Auto) (1.8-7.7) 10^3/u L Lymph # (Auto) (0.8-4.8) 10^3/u L Bradford # (Auto) (0.2-0.9) 10^3/u L Eos # (Auto) (0.0-0.8) 10^3/u L Baso # (Auto) (0.0-0.1) 10^3/u L Nucleated RBC % (a uto) % Nucleated RBCs # /100WBC Sodium (136-145) mmol/L Potassium (3.5-5.1) mmol/L Chloride (98-107) mmol/L Carbon Dioxide (22-29) mmol/L Anion Gap (5-19) BUN (8-23) mg/dL Creatinine (0.5-0.9) mg/dL GFR Calculation Glucose (65-115) mg/dL Calculated Osmolal ity (285-295) mOsm/k g Lactate 1.0 (0.5-2.2) mmol/L Calcium (8.5-10.5) mg/dL Total Bilirubin (0.15-1.2) mg/dL AST (0-32) U/L ALT (0-33) U/L Alkaline Phosphata se (35-105) IU/L Troponin T Baselin e (0-10) ng/L Total Protein (6.6-8.7) g/dL Albumin (3.5-5.2) g/dL Globulin (1.3-4.6) g/dL Urine Color Yellow (Yellow) Urine Appearance Clear (CLEAR) Urine pH 6.5 (5-7) Ur Specific Gravit y 1.015 (1.005-1.030) Urine Protein Neg (Negative) Urine Glucose (UA) Norm (Normal) Urine Ketones Negative (Negative) Urine Blood Neg (Negative) Urine Nitrate Negative (Negative) Urine Bilirubin Neg (Negative) Urine Urobilinogen Norm (Negative) mg/dL Ur Leukocyte Dayana ase Negative (Negative) Discharge Plan Discharge Patient Disposition: Home Clinical Impression: Gastroenteritis Condition: Stable Prescriptions: New Zofran 4 mg tablet 4 mg PO Q8H 5 Days Qty: 15 RF: 0 No Action meclizine 25 mg tablet 25 mg PO QID PRN (Reason: unknown) RF: 0 albuterol sulfate 2.5 mg /3 mL (0.083 %) solution for nebulization 2.5 mg INHALATION Q4H PRN (Reason: unknown) RF: 0 furosemide [Lasix] 20 mg tablet 10 mg PO DAILY@0800 RF: 0 naproxen [Naprosyn] 500 mg tablet 500 mg PO BID PRN (Reason: pain) Qty: 20 RF: 0 prednisone 10 mg Tablet 10 - 20 mg PO DAILY PRN (Reason: unknown) RF: 0 tizanidine 4 mg tablet 4 mg PO BEDTIME PRN (Reason: unknown) RF: 0 ibuprofen [Advil] 200 mg Tablet 800 mg PO PRN PRN (Reason: Pain) RF: 0 potassium gluconate 595 mg (99 mg) Tablet 595 mg PO DAILY RF: 0 diclofenac sodium 1 % gel 2 g TOPICAL BID PRN (Reason: unknown) RF: 0 baclofen 5 mg tablet 5 mg PO TID PRN (Reason: unknown) RF: 0 Vitamin B-12 2 tab PO DAILY RF: 0 Motrin 100 mg Tablet 200 mg PO Q6H PRN (Reason: Pain) RF: 0 metoprolol succinate 25 mg tablet extended release 24 hr 25 mg PO DAILY RF: 0 albuterol sulfate 90 mcg/actuation HFA aerosol inhaler 2 puff INHALATION Q6H PRN (Reason: Shortness Of Breath) RF: 0 Advair Diskus 100-50 mcg/dose blister with device 1 inh inhalation BID@0800,1600 RF: 0 Discharge Orders: Discharge ED (Routine); Ordered 07/12/20 Ordered By: Vineet Valenzuela Referrals: Raymundo Prasad [Primary Care Provider] - Discharge Diet: Advance as tolerated Discharge Activity: Resume usual activity Patient Instructions: Acute Nausea and Vomiting (ED) Activity Restrictions/Additional Instructions: You have been vomiting. Please take the Zofran to help with your nausea and drink lots of fluids. Return to the ER with worsening symptoms. Of note on your chest x-ray there was a small abnormality in your left lung base. Please follow-up with your primary care physician in 1 week to get this checked and possibly get a CT of your chest at your primary care doctors discretion. Keep in mind there is a small possibility this could be a cancer so make sure you follow-up and get a repeat image. Return to the ER with worsening symptoms at any time. Coding Level of Care Code ED Senior Validation Engineer for [employer] F[employer] Exam Comprehensive
[2020-07-12 07:04] VITALS: BP 140/50; PULSE 75; RESP 15; O2SAT 91
[2020-07-12 07:07] LABS: Basophils # 0.1 10^3/uL (0.0-0.1); Basophils % 0.8 %; Eosinophils # 0.2 10^3/uL (0.0-0.8); Eosinophils % 1.9 %; Hematocrit 42.9 % (37.0-47.0); Hemoglobin 13.3 g/dL (11.5-15.3); Lymphocytes % 23.1 %; Mean Corpuscular Hemoglobin 30.8 pg (28.0-34.0); Mean Corpuscular Volume 99.3 fL (81-99); Mean Platelet Volume 10.9 fL (7.4-10.4); Monocytes # 0.7 10^3/uL (0.2-0.9); Monocytes % 8.2 %; Neutrophils # 5.53 10^3/uL (1.8-7.7); Neutrophils % 65.4 %; Nucleated Red Blood Cells % 0 %; Platelet Count 245 10^3/cmm (130-400); Red Blood Count 4.32 10^6/uL (4.1-5.3); Red Cell Distribution Width 12.1 % (12.1-15.1); White Blood Count 8.5 10^3/uL (4.0-10.0)
[2020-07-12 07:34] LABS: Alanine Aminotransferase 16 U/L (0-33); Albumin Level 3.9 g/dL (3.5-5.2); Alkaline Phosphatase 99 IU/L (35-105); Anion Gap 15.1 (5-19); Aspartate Amino Transferase 20 U/L (0-32); Blood Urea Nitrogen 20 mg/dL (8-23); Calcium 8.5 mg/dL (8.5-10.5); Carbon Dioxide 36 mmol/L (22-29); Chloride 99 mmol/L (98-107); Globulin 2.8 g/dL (1.3-4.6); Glucose 84 mg/dL (65-115); Osmolality Calculated 306 mOsm/kg (285-295); Potassium 3.1 mmol/L (3.5-5.1); Sodium 147 mmol/L (136-145); Total Bilirubin 0.3 mg/dL (0.15-1.2); Total Protein 6.7 g/dL (6.6-8.7)
[2020-07-12 07:36] LABS: Troponin(5th) Baseline 13 ng/L (0-10)
[2020-07-12] MEDS: ondansetron 2 mg/ML SDV 2 mL 4 MG IVP (07:39)
[2020-07-12 07:47] LABS: Add Urine Microscopic? NO
[2020-07-12 07:49] LABS: Bilirubin Urine Neg (Negative); Blood Urine Neg (Negative); Glucose Urine UA Norm (Normal); Ketones Urine Negative (Negative); Leukocyte Esterase Urine Negative (Negative); Nitrate Urine Negative (Negative); Protein Urine Neg (Negative); Specific Gravity, Urine 1.015 (1.005-1.030); Urine Appearance Clear (CLEAR); Urine Color Yellow (Yellow); Urobilinogen Urine Norm (Negative); pH Urine 6.5 (5-7)
[2020-07-12] MEDS: sodium chloride 0.9% 500 ML IV (07:53)
[2020-07-12 08:40] VITALS: BP 149/62; PULSE 66; RESP 14; O2SAT 95
[2020-07-12 10:10] VITALS: BP 131/46; PULSE 76; RESP 18; O2SAT 94
== END 2020-07-12 10:10 | disposition home or self-care (01) ==
PROVIDERS: Emergency Provider Family Medicine; PCP Family Medicine
DX: K52.9 Noninfective gastroenteritis and colitis, unspecified (principal); J44.9 Chronic obstructive pulmonary disease, unspecified; Z87.891 Personal history of nicotine dependence
CPT/HCPCS: 12345; 71045; 80053; 81003; 83605; 84484; 85025; 93005; 96361; 96374; 99282; 99283; J2405; J7040

== ENCOUNTER 2020-07-13 12:27 | Emergency (ER) | payer MEDICARE, SELFPAY ==
--- NOTE | 2020-07-13 12:28 | XRR_ITS ---
PROCEDURE INFORMATION: Exam: XR Chest, 1 View Exam date and time: 07/13/2020 12:41 PM Age: 84 years old Clinical indication: Pain; Shortness of breath; Other: Tightness; Additional info: Cp TECHNIQUE: Imaging protocol: XR of the chest Views: 1 view. COMPARISON: CR (CHEST, ) 07/12/2020 6:59 AM FINDINGS: Lungs: No acute pulmonary infiltrates are seen. Pleural spaces: Unremarkable. No pleural effusion. No pneumothorax. Heart/Mediastinum: The heart is normal for the AP lordotic projection. There is calcification of the aorta. Bones/joints: Unremarkable. XR/XR chest 1V portable [id number] IMPRESSION: No significant cardiopulmonary abnormality.
--- NOTE | 2020-07-13 12:28 | ECG_ITS ---
[facility] Test Date: 2020-07-13 Pat Name: Brady Nails Department: Room: Gender: Female Early Childhood Teacher Assistant: VANITA HEARTB: 1935 Requested By: Suraj Sal Order Number: [id number] Reading MD: JULES MCKEON Measurements Intervals [place] Rate: 82 P: 62 [place]: 121 QRS: 38 QRSD: 89 T: 37 QT: 361 QTc: 423 Interpretive Statements SINUS RHYTHM Compared to ECG 07/12/2020 08:10:52 No significant changes Electronically Signed On 07-13-2020 19:29:33 CLIMATOLOGY TEACHER by JULES MCKEON [id number]
[2020-07-13 12:45] VITALS: BP 130/70; PULSE 86; RESP 14; TEMP 36.6; O2SAT 97; BMI 39.4
--- NOTE | 2020-07-13 14:28 | ECG_ITS ---
[facility] Test Date: 2020-07-13 Pat Name: Brady Nails Department: Room: Gender: Female Technical Analyst: : 1935 Requested By: Suraj Sal Order Number: [id number] Reading MD: JULES MCKEON Measurements Intervals [place] Rate: 83 P: 50 [place]: 120 QRS: 31 QRSD: 90 T: 37 QT: 363 QTc: 428 Interpretive Statements SINUS RHYTHM Compared to ECG 07/13/2020 13:03:26 No significant changes Electronically Signed On 07-13-2020 19:31:54 MANAGER TECHNICAL by JULES MCKEON [id number]
--- NOTE | 2020-07-13 16:29 | CTR_ITS ---
PROCEDURE INFORMATION: Exam: CT Head Without Contrast Exam date and time: 07/13/2020 4:31 PM Age: 84 years old Clinical indication: Dizziness and visual disturbance; Patient HX: Dizziness, nausea, blurred vision, weakness; Additional info: Vertigo TECHNIQUE: Imaging protocol: Computed tomography of the head without contrast. Radiation optimization: All CT scans at this facility use at least one of these dose optimization techniques: automated exposure control; mA and/or kV adjustment per patient size (includes targeted exams where dose is matched to clinical indication); or iterative reconstruction. COMPARISON: CT head wo con* [id number] 01/09/2020 9:40 AM RADIATION DOSE METRICS: Total DLP (mGy-cm): 721.89 FINDINGS: Brain: There is mild cerebral atrophy. No intracranial hemorrhage. No intracranial mass. No acute brain ischemia identified. Hernandez matter and white matter interfaces are preserved. No midline shift of brain. Cerebral ventricles: No ventriculomegaly. Bones/joints: Unremarkable. No acute fracture. Paranasal sinuses: Visualized sinuses are unremarkable. No fluid levels. Mastoid air cells: Visualized mastoid air cells are well aerated. Orbital cavity: Orbits are symmetric and unremarkable. Vasculature: Intracranial atherosclerosis. Soft tissues: Unremarkable. CT/CT head wo con* [id number] IMPRESSION: 1. Negative for acute intracranial abnormality. 2. No significant change from prior 01/09/2020. Radiation Dose CTDIVOL = (mGy): DLP = 721.89 (mGy-cm)
[2020-07-13 16:46] VITALS: BP 130/53; PULSE 87; RESP 15; O2SAT 97
[2020-07-13 17:06] LABS: Basophils # 0.1 10^3/uL (0.0-0.1); Basophils % 0.8 %; Eosinophils # 0.1 10^3/uL (0.0-0.8); Eosinophils % 1.9 %; Hematocrit 43.6 % (37.0-47.0); Hemoglobin 13.2 g/dL (11.5-15.3); Lymphocytes # 1.5 10^3/uL (0.8-4.8); Lymphocytes % 23.5 %; Mean Corpuscular HGB Conc 30.3 g/dL (30.0-36.0); Mean Corpuscular Hemoglobin 30.8 pg (28.0-34.0); Mean Corpuscular Volume 101.6 fL (81-99); Mean Platelet Volume 10.6 fL (7.4-10.4); Monocytes # 0.5 10^3/uL (0.2-0.9); Monocytes % 7.7 %; Neutrophils # 4.16 10^3/uL (1.8-7.7); Neutrophils % 65.6 %; Nucleated Red Blood Cells % 0 %; Platelet Count 252 10^3/cmm (130-400); Red Blood Count 4.29 10^6/uL (4.1-5.3); Red Cell Distribution Width 12.2 % (12.1-15.1); White Blood Count 6.3 10^3/uL (4.0-10.0)
[2020-07-13] MEDS: meclizine 25 mg tablet 50 MG PO (17:16)
[2020-07-13] MEDS: sodium chloride 0.9% 1,000 ML 999 ML IV (17:16)
[2020-07-13 17:19] VITALS: BP 124/45; PULSE 102; RESP 21; O2SAT 93
--- NOTE | 2020-07-13 17:22 | ED_ITS ---
HPI - Dizziness General: Chief Complaint: Dizziness Stated Complaint: Dizziness, Chest Pain, vomiting Time Seen by Provider: 07/13/20 16:13 Source: patient Mode of arrival: ambulatory Limitations: no limitations History of Present Illness: HPI Narrative: 84-year-old female states she has been having fluttering in her chest along with dizziness. Patient states that she has jumping in her chest throughout the night. She denies any pain currently. She denies any fever or shortness of breath. She states she has had vertigo for months and does take meclizine and that seems to help. She denies any vomiting or diarrhea. Associated symptoms: Reports nausea and vomiting; Denies chest pain, chills or headache(s) Review of Systems Const: Denies: fever(s), chills, body aches or change in appetite Eyes: Denies: blurry vision or eye discomfort ENMT: Denies: throat pain or dental pain Card: Denies: chest pain Resp: Denies: dyspnea GI: Reports: nausea and vomiting; Denies: abdominal pain or diarrhea : Denies: dysuria Musc: Denies: neck pain or back pain Skin/Breast: Denies: rash Neuro: Reports: dizziness; Denies: headache(s) Psych: Denies: depression Orion/Lymph: Denies: easy bruising All/Imm: Denies: urticaria PFSH ED PFSH: Medical History COPD (chronic obstructive pulmonary disease) Social History Smoking and tobacco status: former smoker Alcohol intake: never Physical Exam Const: COMMON NORMALS: no acute distress, patient oriented x3 and healthy appearing HENMT: COMMON NORMALS: normocephalic and atraumatic HEAD & SCALP: normocephalic and atraumatic Eye: COMMON NORMALS: Equal, round and reactive pupils present and EOMs intact bilaterally PUPIL: Yes Equal, round and reactive pupils present Neck/C-Spine: COMMON NORMALS: full ROM and supple Chest: COMMONS NORMALS: normal inspection of the chest and normal palpation of entire chest wall Resp: COMMON NORMALS: normal respiratory effort, No retractions, No use of accessory muscles and clear to auscultation bilaterally AUSCULTATION: clear to auscultation bilaterally Cardio: COMMON NORMALS: regular rate, regular rhythm and No murmurs present (Cardio) RATE: regular rate RHYTHM: regular rhythm GI: COMMON NORMALS: Normal to inspection, nondistended, normoactive bowel sounds present, Soft to palpation, non-tender and no masses PALPATION: Yes Soft to palpation Extremity: COMMON NORMALS: normal to inspection and full ROM Neuro: COMMON NORMALS: patient oriented x3, moves all extremities and no focal motor deficits Psych: COMMON NORMALS: mental status grossly normal, Normal thought process present and cooperative THOUGHT PROCESS: Normal thought process present Skin: COMMON NORMALS: no rashes or lesions noted and no wounds GENERAL SKIN EXAM: no rashes or lesions noted Course Vital Signs: Vital signs: Vital Signs Temperature 97.9 F 07/13/20 12:45 Pulse Rate 83 07/13/20 18:29 Respiratory Rate 20 H 07/13/20 18:29 Blood Pressure 133/48 07/13/20 18:29 Pulse Oximetry 97 07/13/20 18:29 MDM - Dizziness MDM Narrative: Medical decision making narrative: Patient presents here with vertigo along with chest pain that happened last night. Initial troponin was 16. I did 1 to hold her for a 2-hour troponin but she states the roads are getting icy and she cannot stay any longer whatsoever. Her dizziness is resolved and her CT head here is normal. We will discharge at this time and she is return if worsening. She understands agrees to plan. Lab Data: Labs: Lab Results 07/13/20 07/13/20 07/13/20 Range/Units 16:35 16:35 16:35 WBC 6.3 (4.0-10.0) 10^3/ uL RBC 4.29 (4.1-5.3) 10^6/u L Hgb 13.2 (11.5-15.3) g/dL Hct 43.6 (37.0-47.0) % MCV 101.6 H (81-99) fL MCH 30.8 (28.0-34.0) pg MCHC 30.3 (30.0-36.0) g/dL RDW 12.2 (12.1-15.1) % Plt Count 252 (130-400) 10^3/c mm MPV 10.6 H (7.4-10.4) fL Neut % (Auto) 65.6 % Lymph % (Auto) 23.5 % [place] % (Auto) 7.7 % Eos % (Auto) 1.9 % Baso % (Auto) 0.8 % Neut # (Auto) 4.16 (1.8-7.7) 10^3/u L Lymph # (Auto) 1.5 (0.8-4.8) 10^3/u L [place] # (Auto) 0.5 (0.2-0.9) 10^3/u L Eos # (Auto) 0.1 (0.0-0.8) 10^3/u L Baso # (Auto) 0.1 (0.0-0.1) 10^3/u L Nucleated RBC % (a uto) 0 % Nucleated RBCs # 0.0 /100WBC PT 13.40 (12.1-14.9) SECO NDS INR 0.99 (0.8-1.2) APTT 23.3 L (23.9-36.7) SECO NDS Sodium 143 (136-145) mmol/L Potassium 3.3 L (3.5-5.1) mmol/L Chloride 102 (98-107) mmol/L Carbon Dioxide 34 H (22-29) mmol/L Anion Gap 10.3 (5-19) BUN 13 (8-23) mg/dL Creatinine 0.8 (0.5-0.9) mg/dL GFR Calculation Not Reportable Glucose 92 (65-115) mg/dL Calculated Osmolal ity 296 H (285-295) mOsm/k g Calcium 9.2 (8.5-10.5) mg/dL Total Bilirubin 0.4 (0.15-1.2) mg/dL AST 20 (0-32) U/L ALT 16 (0-33) U/L Alkaline Phosphata se 90 (35-105) IU/L Troponin T Baselin e (0-10) ng/L Total Protein 6.4 L (6.6-8.7) g/dL Albumin 3.8 (3.5-5.2) g/dL Globulin 2.6 (1.3-4.6) g/dL 07/13/20 Range/Units 16:35 WBC (4.0-10.0) 10^3/ uL RBC (4.1-5.3) 10^6/u L Hgb (11.5-15.3) g/dL Hct (37.0-47.0) % MCV (81-99) fL MCH (28.0-34.0) pg MCHC (30.0-36.0) g/dL RDW (12.1-15.1) % Plt Count (130-400) 10^3/c mm MPV (7.4-10.4) fL Neut % (Auto) % Lymph % (Auto) % [place] % (Auto) % Eos % (Auto) % Baso % (Auto) % Neut # (Auto) (1.8-7.7) 10^3/u L Lymph # (Auto) (0.8-4.8) 10^3/u L [place] # (Auto) (0.2-0.9) 10^3/u L Eos # (Auto) (0.0-0.8) 10^3/u L Baso # (Auto) (0.0-0.1) 10^3/u L Nucleated RBC % (a uto) % Nucleated RBCs # /100WBC PT (12.1-14.9) SECO NDS INR (0.8-1.2) APTT (23.9-36.7) SECO NDS Sodium (136-145) mmol/L Potassium (3.5-5.1) mmol/L Chloride (98-107) mmol/L Carbon Dioxide (22-29) mmol/L Anion Gap (5-19) BUN (8-23) mg/dL Creatinine (0.5-0.9) mg/dL GFR Calculation Glucose (65-115) mg/dL Calculated Osmolal ity (285-295) mOsm/k g Calcium (8.5-10.5) mg/dL Total Bilirubin (0.15-1.2) mg/dL AST (0-32) U/L ALT (0-33) U/L Alkaline Phosphata se (35-105) IU/L Troponin T Baselin e 13 H (0-10) ng/L Total Protein (6.6-8.7) g/dL Albumin (3.5-5.2) g/dL Globulin (1.3-4.6) g/dL Imaging Data^: CT Head: Attestation: I personally reviewed and interpreted this imaging study as follows: Radiologist's impression: [facility] [address] [place] [address]. [place] [address] CT Scan Report Signed Patient: Brady Nails Unit #: [id number] : 1935 Age/Sex: 84 / F ADM Date: 07/13/20 Loc: ER Room/Bed: Attending Dr: Ordering Provider/Ordering MD: Suraj Sal MD Date of Service: 07/13/20 Procedure(s): CT head wo con* [id number] Accession Number(s): [id number] Report Number: [id number] PROCEDURE INFORMATION: Exam: CT Head Without Contrast Exam date and time: 07/13/2020 4:31 PM Age: 84 years old Clinical indication: Dizziness and visual disturbance; Patient HX: Dizziness, nausea, blurred vision, weakness; Additional info: Vertigo TECHNIQUE: Imaging protocol: Computed tomography of the head without contrast. Radiation optimization: All CT scans at this facility use at least one of these dose optimization techniques: automated exposure control; mA and/or kV adjustment per patient size (includes targeted exams where dose is matched to clinical indication); or iterative reconstruction. COMPARISON: CT head wo con* [id number] 01/09/2020 9:40 AM RADIATION DOSE METRICS: Total DLP (mGy-cm): 721.89 FINDINGS: Brain: There is mild cerebral atrophy. No intracranial hemorrhage. No intracranial mass. No acute brain ischemia identified. Hernandez matter and white matter interfaces are preserved. No midline shift of brain. Cerebral ventricles: No ventriculomegaly. Bones/joints: Unremarkable. No acute fracture. Paranasal sinuses: Visualized sinuses are unremarkable. No fluid levels. Mastoid air cells: Visualized mastoid air cells are well aerated. Orbital cavity: Orbits are symmetric and unremarkable. Vasculature: Intracranial atherosclerosis. Soft tissues: Unremarkable. CT/CT head wo con* [id number] IMPRESSION: 1. Negative for acute intracranial abnormality. 2. No significant change from prior 01/09/2020. CXR: Attestation: I personally reviewed and interpreted this imaging study as follows: Radiologist's impression: [address] [address] XRay Report Signed Patient: Brady Nails Unit #: [id number] : 1935 Age/Sex: 84 / F ADM Date: 07/13/20 Loc: ER Room/Bed: Attending Dr: Ordering Provider/Ordering MD: Suraj Sal MD Date of Service: 07/13/20 Procedure(s): XR chest 1V portable [id number] Accession Number(s): [id number] Report Number: [id number] PROCEDURE INFORMATION: Exam: XR Chest, 1 View Exam date and time: 07/13/2020 12:41 PM Age: 84 years old Clinical indication: Pain; Shortness of breath; Other: Tightness; Additional info: Cp TECHNIQUE: Imaging protocol: XR of the chest Views: 1 view. COMPARISON: CR (CHEST, ) 07/12/2020 6:59 AM FINDINGS: Lungs: No acute pulmonary infiltrates are seen. Pleural spaces: Unremarkable. No pleural effusion. No pneumothorax. Heart/Mediastinum: The heart is normal for the AP lordotic projection. There is calcification of the aorta. Bones/joints: Unremarkable. XR/XR chest 1V portable [id number] IMPRESSION: No significant cardiopulmonary abnormality. EKG Data^: EKG 1: Attestation: I personally reviewed and interpreted this EKG as follows: EKG interpretation date: 07/13/20 EKG interpretation time: 13:03 Interpretation: nsr hr [address] or t wave abnormalities qrs 89 qtc 400 EKG 2: Attestation: I personally reviewed and interpreted this EKG as follows: EKG interpretation date: 07/13/20 EKG interpretation time: 14:58 Interpretation: nsr hr [address] or t wave abnormalities qrs 90 qtc 403 Discharge Plan Discharge Patient Disposition: Home Clinical Impression: Vertigo, Chest pain Condition: Stable Prescriptions: New ondansetron 4 mg tablet,disintegrating 4 mg PO Q6H PRN (Reason: nausea and vomiting) Qty: 14 RF: 0 No Action meclizine 25 mg tablet 25 mg PO QID PRN (Reason: unknown) RF: 0 albuterol sulfate 2.5 mg /3 mL (0.083 %) solution for nebulization 2.5 mg INHALATION Q4H PRN (Reason: unknown) RF: 0 furosemide [Lasix] 20 mg tablet 10 mg PO DAILY@0800 RF: 0 naproxen [Naprosyn] 500 mg tablet 500 mg PO BID PRN (Reason: pain) Qty: 20 RF: 0 prednisone 10 mg Tablet 10 - 20 mg PO DAILY PRN (Reason: unknown) RF: 0 tizanidine 4 mg tablet 4 mg PO BEDTIME PRN (Reason: unknown) RF: 0 ibuprofen [Advil] 200 mg Tablet 800 mg PO PRN PRN (Reason: Pain) RF: 0 potassium gluconate 595 mg (99 mg) Tablet 595 mg PO DAILY RF: 0 diclofenac sodium 1 % gel 2 g TOPICAL BID PRN (Reason: unknown) RF: 0 baclofen 5 mg tablet 5 mg PO TID PRN (Reason: unknown) RF: 0 Vitamin B-12 2 tab PO DAILY RF: 0 Motrin 100 mg Tablet 200 mg PO Q6H PRN (Reason: Pain) RF: 0 metoprolol succinate 25 mg tablet extended release 24 hr 25 mg PO DAILY RF: 0 albuterol sulfate 90 mcg/actuation HFA aerosol inhaler 2 puff INHALATION Q6H PRN (Reason: Shortness Of Breath) RF: 0 Zofran 4 mg tablet 4 mg PO Q8H 5 Days Qty: 15 RF: 0 Advair Diskus 100-50 mcg/dose blister with device 1 inh inhalation BID@0800,1600 RF: 0 Discharge Orders: Discharge ED (Routine); Ordered 07/13/20 Ordered By: Suraj Sal Referrals: Raymundo Prasad [Primary Care Provider] - 1-3 days Discharge Diet: Advance as tolerated Discharge Activity: Resume usual activity Patient Instructions: Chest Pain (ED) Coding Level of Care Code ED [employer] [facility] Fwd Exam Comprehensive
[2020-07-13 17:23] LABS: INR 0.99 (0.8-1.2)
[2020-07-13 17:24] LABS: Partial Thromboplastin Time 23.3 SECONDS (23.9-36.7)
[2020-07-13 17:29] LABS: Alanine Aminotransferase 16 U/L (0-33); Albumin Level 3.8 g/dL (3.5-5.2); Alkaline Phosphatase 90 IU/L (35-105); Anion Gap 10.3 (5-19); Aspartate Amino Transferase 20 U/L (0-32); Blood Urea Nitrogen 13 mg/dL (8-23); Calcium 9.2 mg/dL (8.5-10.5); Carbon Dioxide 34 mmol/L (22-29); Chloride 102 mmol/L (98-107); Globulin 2.6 g/dL (1.3-4.6); Glucose 92 mg/dL (65-115); Osmolality Calculated 296 mOsm/kg (285-295); Potassium 3.3 mmol/L (3.5-5.1); Sodium 143 mmol/L (136-145); Total Bilirubin 0.4 mg/dL (0.15-1.2); Total Protein 6.4 g/dL (6.6-8.7)
[2020-07-13 17:31] LABS: Troponin(5th) Baseline 13 ng/L (0-10)
[2020-07-13 18:29] VITALS: BP 133/48; PULSE 83; RESP 20; O2SAT 97
== END 2020-07-13 18:29 | disposition home or self-care (01) ==
PROVIDERS: Emergency Provider Emergency Medicine; PCP Family Medicine
DX: R42 Dizziness and giddiness (principal); R07.9 Chest pain, unspecified; J44.9 Chronic obstructive pulmonary disease, unspecified; Z87.891 Personal history of nicotine dependence
CPT/HCPCS: 12345; 70450; 71045; 80053; 84484; 85025; 85610; 85730; 93005; 96360; 99283; 99284; J7030; J8597

== ENCOUNTER 2020-08-26 14:14 | Outpatient (CLI) | payer MEDICARE, SELFPAY ==
--- NOTE | 2020-08-26 14:00 | CT_ITS ---
WS: [id number] CT CHEST TECHNIQUE: Noncontrast CT of the chest with coronal and sagittal reformatted images. CLINICAL INFORMATION: R93.89 - Abnormal findings on diagnostic imaging of other specified body struct ures COMPARISON: Radiograph July 13, 2020 DLP: 933.[address] scans at [facility] use at least one of these dose optimization techniques: automat ed exposure control; mA and/or kV adjustment per patient size (includes targeted exams where dose is matched to clinical indication); or iterative reconstruction. FINDINGS: Moderate chronic emphysematous changes. No acute pulmonary infiltrates. No consolidation pleural flui d. No suspicious pulmonary parenchymal abnormalities. Normal caliber thoracic aorta. Mild to moderate aortic calcification No mediastinal or hilar lymphadenopathy. No axillary lymphadenopathy. Adrenal glands are normal. Cholecystectomy clips. Normal GE junction. Moderate thoracic kyphosis. 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 This appears similar to 2017. CT/CT chest wo con [id number] IMPRESSION: 1. Prominent fat pad at the cardiophrenic angle as seen on the recent radiogra ph. 2. Mild chronic emphysematous changes. No suspicious parenchymal opacities. 3. No focal pneumonia or pleural fluid. 4. No mediastinal or hilar lymphadenopathy. 5. Aortic calcification.
== END 2020-08-26 14:15 | disposition home or self-care (01) ==
LOC: RADWPI 14:18
PROVIDERS: PCP Registered Nurse; Visit Provider Registered Nurse
DX: R93.89 Abnormal findings on diagnostic imaging of other specified body structures (principal); I70.0 Atherosclerosis of aorta
CPT/HCPCS: 71250

== ENCOUNTER → 2020-08-27 14:28 | Outpatient (BNVA) | payer MEDICARE, SELFPAY | PROVIDERS: PCP Registered Nurse; Visit Provider Registered Nurse | DX: R39.9 Unspecified symptoms and signs involving the genitourinary system (principal) | CPT/HCPCS: 81000 ==

== ENCOUNTER 2020-08-30 14:24 | Emergency (ER) | payer MEDICARE, SELFPAY ==
[2020-08-30 14:31] VITALS: BP 120/78; PULSE 88; RESP 18; TEMP 36.9; O2SAT 99; BMI 32.5
--- NOTE | 2020-08-30 14:38 | CTR_ITS ---
PROCEDURE INFORMATION: Exam: CT Abdomen And Pelvis Without Contrast Exam date and time: 08/30/2020 2:53 PM Age: 84 years old Clinical indication: Abdominal pain; Generalized; Prior surgery; Surgery date: 6+ months; Surgery type: Gb; Patient HX: C/O abd pain n/v loose stool and hematuria TECHNIQUE: Imaging protocol: Computed tomography of the abdomen and pelvis without contrast. Radiation optimization: All CT scans at this facility use at least one of these dose optimization techniques: automated exposure control; mA and/or kV adjustment per patient size (includes targeted exams where dose is matched to clinical indication); or iterative reconstruction. COMPARISON: CT abdomen pelvis w con* [id number] 03/17/2017 5:01 PM RADIATION DOSE METRICS: Total DLP (mGy-cm): 1690.79 FINDINGS: Mediastinal space: Slight hiatal hernia. Liver: Normal. No mass. Gallbladder and bile ducts: Cholecystectomy. No dilation of biliary system. Pancreas: Normal. No ductal dilation. Spleen: Normal. No splenomegaly. Adrenal glands: Normal. No mass. Kidneys and ureters: Punctate nonobstructing right upper pole kidney stone. No perinephric inflammation. Negative for hydronephrosis. Nonobstructing left renal lower pole stone. Stomach and bowel: Diverticulosis coli. Negative for bowel obstruction. Negative for bowel perforation. No focal inflammatory wall thickening of bowel loops. No focal bowel wall mass. Appendix: No evidence of appendicitis. Intraperitoneal space: Unremarkable. No free air. No significant fluid collection. Vasculature: Diffuse atherosclerosis of abdominal aorta. No aneurysm. Lymph nodes: Unremarkable. No enlarged lymph nodes. Urinary bladder: Unremarkable as visualized. Reproductive: Hysterectomy. Bones/joints: Severe compression fracture deformity L5 vertebral body is new since 03/17/2017 but otherwise of indeterminate acuity. There is some retropulsion of the posterosuperior corner of the L5 vertebral body causing at least moderate severity spinal canal stenosis. Overall, bones are demineralized. Diffuse facet joint arthritis. Soft tissues: Small fat containing midline epigastric hernia of the ventral abdominal wall without acute inflammation. Symmetric, unremarkable lumbar paraspinal muscles. CT/CT kidney stone [id number] IMPRESSION: 1. No acute pathology in the abdomen or pelvis. 2. Bilateral nonobstructing kidney stones. 3. Age indeterminate, severe L5 compression fracture which has developed since 03/17/2017; suspect nonacute finding but clinical correlation necessary. Radiation Dose CTDIVOL = (mGy): DLP = 1690.79 (mGy-cm)
--- NOTE | 2020-08-30 14:46 | ED_ITS ---
HPI - Abdominal Pain General: Chief Complaint: Nausea/Vomiting/Diarrhea Stated Complaint: loose stool, vomiting, stomach pains Time Seen by Provider: 08/30/20 14:38 Source: patient Mode of arrival: ambulatory Limitations: no limitations History of Present Illness: HPI narrative: 85-year-old female states since this morning she has been having vomiting diarrhea along with diffuse abdominal pain. States her pain is diffuse in nature and cramping. She denies any worsening improving factors. She denies any blood in her vomit or diarrhea. She denies any chest pain and denies any fever. Denies any radiation of her pain. Associated Symptoms: Reports diarrhea, nausea and vomiting; Denies chills, dysuria and fever(s) Review of Systems Const: Denies: fever(s), chills, body aches or change in appetite Eyes: Denies: blurry vision or eye discomfort ENMT: Denies: throat pain or dental pain Card: Denies: chest pain Resp: Denies: dyspnea GI: Reports: abdominal pain, nausea, vomiting and diarrhea : Denies: dysuria Musc: Denies: neck pain or back pain Skin/Breast: Denies: rash Neuro: Denies: headache(s) Psych: Denies: depression Orion/Lymph: Denies: easy bruising All/Imm: Denies: urticaria PFSH ED PFSH: Medical History Arthritis COPD (chronic obstructive pulmonary disease) Social History Smoking and tobacco status: former smoker Alcohol intake: never Physical Exam Const: COMMON NORMALS: no acute distress, patient oriented x3 and healthy appearing HENMT: COMMON NORMALS: normocephalic and atraumatic HEAD & SCALP: normocephalic and atraumatic Eye: COMMON NORMALS: Equal, round and reactive pupils present and EOMs intact bilaterally PUPIL: Yes Equal, round and reactive pupils present Neck/C-Spine: COMMON NORMALS: full ROM and supple Chest: COMMONS NORMALS: normal inspection of the chest and normal palpation of entire chest wall Resp: COMMON NORMALS: normal respiratory effort, No retractions, No use of accessory muscles and clear to auscultation bilaterally AUSCULTATION: clear to auscultation bilaterally Cardio: COMMON NORMALS: regular rate, regular rhythm and No murmurs present (Cardio) RATE: regular rate RHYTHM: regular rhythm GI: COMMON NORMALS: Normal to inspection, nondistended, normoactive bowel sounds present, Soft to palpation, non-tender and no masses PALPATION: Yes Soft to palpation Extremity: COMMON NORMALS: normal to inspection and full ROM Neuro: COMMON NORMALS: patient oriented x3, moves all extremities and no focal motor deficits Psych: COMMON NORMALS: mental status grossly normal, Normal thought process present and cooperative THOUGHT PROCESS: Normal thought process present Skin: COMMON NORMALS: no rashes or lesions noted and no wounds GENERAL SKIN EXAM: no rashes or lesions noted Course Vital Signs: Vital signs: Vital Signs Temperature 98.4 F 08/30/20 14:31 Pulse Rate 88 08/30/20 14:31 Respiratory Rate 18 08/30/20 14:31 Blood Pressure 120/78 08/30/20 14:31 Pulse Oximetry 99 08/30/20 14:31 MDM - Abdominal Pain MDM Narrative: Medical decision making narrative: Patient presents here with vomiting that is likely viral in origin or food related. She feels improved here after Zofran. Patient's blood work and CT are normal. She has been able t o tolerate p.o. fluids here. She is stable for discharge and is to follow-up with PCP and return if worsening. Will prescribe her Zofran for home. Lab Data: Labs: Lab Results 08/30/20 08/30/20 Range/Units 15:05 15:05 WBC 7.6 (4.0-10.0) 10^3/ uL RBC 4.67 (4.1-5.3) 10^6/u L Hgb 14.2 (11.5-15.3) g/dL Hct 47.8 H (37.0-47.0) % MCV 102.4 H (81-99) fL MCH 30.4 (28.0-34.0) pg MCHC 29.7 L (30.0-36.0) g/dL RDW 12.7 (12.1-15.1) % Plt Count 138 (130-400) 10^3/c mm MPV 10.7 H (7.4-10.4) fL Neut % (Auto) 86.5 % Lymph % (Auto) 6.2 % Evangeline % (Auto) 4.4 % Eos % (Auto) 1.7 % Baso % (Auto) 0.3 % Neut # (Auto) 6.53 (1.8-7.7) 10^3/u L Lymph # (Auto) 0.5 L (0.8-4.8) 10^3/u L Evangeline # (Auto) 0.3 (0.2-0.9) 10^3/u L Eos # (Auto) 0.1 (0.0-0.8) 10^3/u L Baso # (Auto) 0.0 (0.0-0.1) 10^3/u L Nucleated RBC % (a uto) 0 % Nucleated RBCs # 0.0 /100WBC Sodium 141 (136-145) mmol/L Potassium 4.6 (3.5-5.1) mmol/L Chloride 106 (98-107) mmol/L Carbon Dioxide 24 (22-29) mmol/L Anion Gap 15.6 (5-19) BUN 27 H (8-23) mg/dL Creatinine 1.0 H (0.5-0.9) mg/dL GFR Calculation Not Reportable Glucose 96 (65-115) mg/dL Calculated Osmolal ity 297 H (285-295) mOsm/k g Calcium 8.6 (8.5-10.5) mg/dL Total Bilirubin 0.5 (0.15-1.2) mg/dL AST 24 (0-32) U/L ALT 29 (0-33) U/L Alkaline Phosphata se 93 (35-105) IU/L Total Protein 6.1 L (6.6-8.7) g/dL Albumin 3.6 (3.5-5.2) g/dL Globulin 2.5 (1.3-4.6) g/dL Lipase 25 (13-60) U/L Imaging Data ^: CT Abd/Pel: Attestation: I personally reviewed and interpreted this imaging study as follows: Radiologist's impression: [address] [address] [address] Scan Report Signed Patient: Brady Nails Unit #: [id number] : 1935 Age/Sex: 84 / F ADM Date: 08/30/20 Loc: ER Room/Bed: Attending Dr: Ordering Provider/Ordering MD: Suraj Sal MD Date of Service: 08/30/20 Procedure(s): CT kidney stone [id number] Accession Number(s): [id number] Report Number: [id number] PROCEDURE INFORMATION: Exam: CT Abdomen And Pelvis Without Contrast Exam date and time: 08/30/2020 2:53 PM Age: 84 years old Clinical indication: Abdominal pain; Generalized; Prior surgery; Surgery date: 6+ months; Surgery type: Gb; Patient HX: C/O abd pain n/v loose stool and hematuria TECHNIQUE: Imaging protocol: Computed tomography of the abdomen and pelvis without contrast. Radiation optimization: All CT scans at this facility use at least one of these dose optimization techniques: automated exposure control; mA and/or kV adjustment per patient size (includes targeted exams where dose is matched to clinical indication); or iterative reconstruction. COMPARISON: CT abdomen pelvis w con* [id number] 03/17/2017 5:01 PM RADIATION DOSE METRICS: Total DLP (mGy-cm): 1690.79 FINDINGS: Mediastinal space: Slight hiatal hernia. Liver: Normal. No mass. Gallbladder and bile ducts: Cholecystectomy. No dilation of biliary system. Pancreas: Normal. No ductal dilation. Spleen: Normal. No splenomegaly. Adrenal glands: Normal. No mass. Kidneys and ureters: Punctate nonobstructing right upper pole kidney stone. No perinephric inflammation. Negative for hydronephrosis. Nonobstructing left renal lower pole stone. Stomach and bowel: Diverticulosis coli. Negative for bowel obstruction. Negative for bowel perforation. No focal inflammatory wall thickening of bowel loops. No focal bowel wall mass. Appendix: No evidence of appendicitis. Intraperitoneal space: Unremarkable. No free air. No significant fluid collection. Vasculature: Diffuse atherosclerosis of abdominal aorta. No aneurysm. Lymph nodes: Unremarkable. No enlarged lymph nodes. Urinary bladder: Unremarkable as visualized. Reproductive: Hysterectomy. Bones/joints: Severe compression fracture deformity L5 vertebral body is new since 03/17/2017 but otherwise of indeterminate acuity. There is some retropulsion of the posterosuperior corner of the L5 vertebral body causing at least moderate severity spinal canal stenosis. Overall, bones are demineralized. Diffuse facet joint arthritis. Soft tissues: Small fat containing midline epigastric hernia of the ventral abdominal wall without acute inflammation. Symmetric, unremarkable lumbar paraspinal muscles. CT/CT kidney stone [id number] IMPRESSION: 1. No acute pathology in the abdomen or pelvis. 2. Bilateral nonobstructing kidney stones. 3. Age indeterminate, severe L5 compression fracture which has developed since 03/17/2017; suspect nonacute finding but clinical correlation necessary. Discharge Plan Discharge Patient Disposition: Home Clinical Impression: Vomiting Qualifiers: Vomiting type: unspecified Vomiting Intractability: non-intractable Nausea presence: with nausea Qualified Code(s): R11.2 - Nausea with vomiting, unspecified Condition: Stable Prescriptions: New ondansetron 4 mg tablet,disintegrating 4 mg PO Q6H PRN (Reason: nausea and vomiting) Qty: 14 RF: 0 No Action prednisone 5 mg tablet 5 mg PO DAILY PRN (Reason: pain (scale score 4-6)) Qty: 30 RF: 0 oxygen 2 l nasal DAILY 365 Days Qty: 1 RF: 0 Trelegy Ellipta 100-62.5-25 mcg blister with device 1 inh inhalation DAILY Qty: 1 RF: 0 potassium gluconate 595 mg (99 mg) Tablet 595 mg PO QAM RF: 0 diclofenac sodium 1 % gel 2 - 4 g TOPICAL BID PRN (Reason: Pain) RF: 0 Vitamin B-12 2 tab PO QAM RF: 0 metoprolol succinate 25 mg tablet extended release 24 hr 25 mg PO QAM RF: 0 albuterol sulfate 90 mcg/actuation HFA aerosol inhaler 2 puff INHALATION Q6H PRN (Reason: Shortness Of Breath) RF: 0 prednisone 10 mg tablet 10 - 20 mg PO DAILY PRN (Reason: Pain) RF: 0 albuterol sulfate 2.5 mg /3 mL (0.083 %) solution for nebulization 2.5 mg inhalation Q6H PRN (Reason: Shortness Of Breath) RF: 0 Zofran 4 mg Tablet 4 mg PO .TODAY RF: 0 meclizine 25 mg tablet 25 mg PO QID PRN (Reason: Nausea And Vomiting) RF: 0 baclofen 10 mg tablet 10 mg PO BEDTIME RF: 0 Vitamin D3 25 mcg (1,000 unit) Capsule 25 mcg PO DAILY RF: 0 calcium 1 tab PO QAM RF: 0 vitamin E 1 cap PO DAILY RF: 0 Discharge Orders: Discharge ED (Routine); Ordered 08/30/20 Ordered By: Suraj Sal Referrals: Swati Lindo FNP [Primary Care Provider] - 1-3 days Discharge Diet: Advance as tolerated Discharge Activity: Resume usual activity Patient Instructions: Acute Nausea and Vomiting (ED) Coding Level of Care Code ED Manager Primary Care for Chg Fwd Exam Comprehensive
[2020-08-30] MEDS: ondansetron 2 mg/ML SDV 2 mL 4 MG IVP (15:09)
[2020-08-30] MEDS: sodium chloride 0.9% 1,000 ML 999 ML IV (15:10)
[2020-08-30 15:25] LABS: Basophils % 0.3 %; Eosinophils # 0.1 10^3/uL (0.0-0.8); Eosinophils % 1.7 %; Hematocrit 47.8 % (37.0-47.0); Hemoglobin 14.2 g/dL (11.5-15.3); Lymphocytes # 0.5 10^3/uL (0.8-4.8); Lymphocytes % 6.2 %; Mean Corpuscular HGB Conc 29.7 g/dL (30.0-36.0); Mean Corpuscular Hemoglobin 30.4 pg (28.0-34.0); Mean Corpuscular Volume 102.4 fL (81-99); Mean Platelet Volume 10.7 fL (7.4-10.4); Monocytes # 0.3 10^3/uL (0.2-0.9); Monocytes % 4.4 %; Neutrophils # 6.53 10^3/uL (1.8-7.7); Neutrophils % 86.5 %; Nucleated Red Blood Cells % 0 %; Platelet Count 138 10^3/cmm (130-400); Red Blood Count 4.67 10^6/uL (4.1-5.3); Red Cell Distribution Width 12.7 % (12.1-15.1); White Blood Count 7.6 10^3/uL (4.0-10.0)
[2020-08-30 15:38] LABS: Albumin Level 3.6 g/dL (3.5-5.2); Alkaline Phosphatase 93 IU/L (35-105); Blood Urea Nitrogen 27 mg/dL (8-23); Calcium 8.6 mg/dL (8.5-10.5); Carbon Dioxide 24 mmol/L (22-29); Chloride 106 mmol/L (98-107); Globulin 2.5 g/dL (1.3-4.6); Glucose 96 mg/dL (65-115); Lipase 25 U/L (13-60); Osmolality Calculated 297 mOsm/kg (285-295); Sodium 141 mmol/L (136-145); Total Bilirubin 0.5 mg/dL (0.15-1.2); Total Protein 6.1 g/dL (6.6-8.7)
[2020-08-30 15:46] LABS: Alanine Aminotransferase 29 U/L (0-33); Anion Gap 15.6 (5-19); Aspartate Amino Transferase 24 U/L (0-32); Potassium 4.6 mmol/L (3.5-5.1)
[2020-08-30 16:29] VITALS: BP 137/66; PULSE 78; RESP 18; O2SAT 98
== END 2020-08-30 16:26 | disposition home or self-care (01) ==
PROVIDERS: Emergency Provider Emergency Medicine; PCP Registered Nurse
DX: R11.2 Nausea with vomiting, unspecified (principal); J44.9 Chronic obstructive pulmonary disease, unspecified; Z87.891 Personal history of nicotine dependence
CPT/HCPCS: 74176; 80053; 83690; 85025; 96361; 96374; 99283; J2405; J7030

== ENCOUNTER → 2020-09-03 14:40 | Outpatient (BNVA) | payer OTHER, SELFPAY | PROVIDERS: PCP Registered Nurse; Visit Provider Registered Nurse | DX: R39.9 Unspecified symptoms and signs involving the genitourinary system (principal); R31.9 Hematuria, unspecified | CPT/HCPCS: 81000; 87077; 87086; 87184; 88112 ==

== ENCOUNTER 2020-09-05 11:39 | Emergency (ER) | payer MEDICARE, SELFPAY ==
[2020-09-05 11:42] VITALS: BP 129/54; PULSE 78; RESP 16; TEMP 36.2; O2SAT 96; BMI 31.4
[2020-09-05 12:01] VITALS: BP 135/56; PULSE 84; RESP 18; O2SAT 98
--- NOTE | 2020-09-05 12:17 | ED_ITS ---
HPI - Back Pain/Injury General: Chief Complaint: Back Pain/Injury Stated Complaint: Lower back pain Time Seen by Provider: 09/05/20 11:46 History of Present Illness: HPI Narrative: Is an 85-year-old female with chronic back and knee pain who comes to the ER complaining of back pain worse for the past few days. She says she ate a cold on Monday and got food poisoning after her birthday republican. The next day she came in for evaluation here and was discharged. Monday morning she woke up with increase in her back pain and she says it has continued to get worse over the week. She says she is taking a muscle relaxer which has not helped. She has tried Tylenol as well which is not helped. She is allergic to narcotics she says they make her pass out. Denies injury to her back. She took a baclofen last night and this morning with no improvement. MD elicited complaint: back pain Pertinent past history: prior back pain Onset (ago): day(s) (5) Timing: constant Severity: moderate Similar Symptoms Previously: Yes Quality: sharp Location: lumbar spine Radiation: none Exacerbating factors: movement Relieving factors: none Associated symptoms: Reports no associated symptoms; Deny abdominal pain, difficulty walking, fatigue or urinary urgency Review of Systems General: Reports: 10 or more systems reviewed and unremarkable except in HPI and below Const: Denies: fatigue Eyes: Denies: change in vision, blurry vision or eye redness ENMT: Denies: throat pain, swelling of lips/tongue, ear or mastoid pain or nasal congestion Card: Denies: chest pain, palpitations, irregular heart rhythm, edema, dyspnea on exertion or orthopnea Resp: Denies: dyspnea, productive cough or non-productive cough GI: Denies: abdominal pain, diarrhea or GI cramping : Denies: flank pain, difficulty voiding, urinary frequency or urinary urgency Musc: Reports: back pain; Denies: neck pain, extremity pain, joint pain, joint redness, limited range of motion or muscle weakness Skin/Breast: Denies: rash, pruritus, erythema, skin pain or skin tenderness Neuro: Denies: headache(s), numbness in extremities, weakness in extremities, sensory changes, difficulty walking, dizziness, confusion or Slurred speech present Psych: Denies: anxiety or depression Endo: Denies: polyuria All/Imm: Denies: urticaria, throat swelling or tongue swelling PFSH ED PFSH: Medical History Arthritis COPD (chronic obstructive pulmonary disease) Social History Smoking and tobacco status: former smoker Alcohol intake: never Physical Exam Const: COMMON NORMALS: no acute distress, average body habitus, patient oriented x3, no limitations, healthy appearing, alert and well nourished GENERAL APPEARANCE: cooperative, comfortable, well kempt and well developed ORIENTATION/CONSCIOUSNESS: Yes awake, Yes oriented to person, Yes oriented to place and Yes oriented to time HENMT: COMMON NORMALS: normocephalic, external ears normal and Normal external nose present HEAD & SCALP: normal to inspection and normocephalic NOSE: Normal external nose present EXTERNAL EAR: Yes external ears normal MOUTH: Normal oral and palatal mucosa present THROAT: posterior oropharynx normal Eye: COMMON NORMALS: Equal, round and reactive pupils present and EOMs intact bilaterally GENERAL EYE: appearance normal, both eyes and all related structures PUPIL: Yes Equal, round and reactive pupils present Neck/C-Spine: COMMON NORMALS: full ROM, no lymphadenopathy, no meningeal signs and no JVD GENERAL: Yes normal visual inspection Lymph: LYMPHATIC: no lymphadenopathy noted Chest: COMMONS NORMALS: normal inspection of the chest and normal palpation of entire chest wall Resp: COMMON NORMALS: normal respiratory effort, No retractions, No use of accessory muscles, clear to auscultation bilaterally and percussion normal EFFORT & INSPECTION: Yes able to speak in complete sentences AUSCULTATION: clear to auscultation bilaterally PERCUSSION: percussion normal Cardio: COMMON NORMALS: no JVD, regular rate, regular rhythm, S1 normal heart sound present, S2 normal heart sound present and Peripheral pulses 2+ throughout RATE: regular rate RHYTHM: regular rhythm HEART SOUNDS: S1 normal heart sound present and S2 normal heart sound present PERIPHERAL PULSES: Peripheral pulses 2+ throughout GI: COMMON NORMALS: Normal to inspection, nondistended, normoactive bowel sounds present, Soft to palpation, non-tender and no masses INSPECTION: Yes normal to inspection PALPATION: Yes Soft to palpation : COMMON NORMALS: Yes no CVA tenderness BLADDER/KIDNEY EXAM: Yes no CVA tenderness Back/Pelvis: COMMON NORMALS: no CVA tenderness, thoracic and lumbar spine normal to inspection, no thoracic nor lumbar tenderness and thoraco-lumbar ROM normal OTHER: Lumbar para spinal musculature tenderness. No bony tenderness or step-offs. Pain with movement in the area as well. Consistent with muscle strains. Extremity: COMMON NORMALS: normal to inspection, full ROM, capillary refill normal, no joint enlargement and no pedal edema GENERAL: Yes normal exam except as noted Neuro: COMMON NORMALS: patient oriented x3, CN's II-XII intact bilaterally, moves all extremities, no focal motor deficits, no sensory deficits noted and gait normal SENSORIUM/ORIENTATION: Yes alert, Yes oriented to person, Yes oriented to place and Yes oriented to time MENINGEAL SIGNS: Yes no meningeal signs Psych: COMMON NORMALS: mental status grossly normal, Normal thought process present, cooperative, normal affect and speech normal APPEARANCE: Yes well kempt ATTITUDE: Yes calm SPEECH: Yes normal speech THOUGHT PROCESS: Normal thought process present Skin: COMMON NORMALS: no rashes or lesions noted GENERAL SKIN EXAM: no rashes or lesions noted Course Vital Signs: Vital signs: Vital Signs Temperature 97.1 F L 09/05/20 11:42 Pulse Rate 84 09/05/20 12:01 Respiratory Rate 18 09/05/20 12:01 Blood Pressure 135/56 09/05/20 12:01 Pulse Oximetry 98 09/05/20 12:01 MDM - Back Pain/Injury MDM Narrative: Medical decision making narrative: Pain significantly improved after Norflex shot. Last to go home and sleep it off. Recommended she get in with her primary in a couple days for physical therapy referral and MRI at that time. ER with worsening symptoms Discharge Plan Discharge Patient Disposition: Home Clinical Impression: Strain of lumbar region Condition: Stable Prescriptions: No Action prednisone 5 mg tablet 5 mg PO DAILY PRN (Reason: pain (scale score 4-6)) Qty: 30 RF: 0 oxygen 2 l nasal DAILY 365 Days Qty: 1 RF: 0 Trelegy Ellipta 100-62.5-25 mcg blister with device 1 inh inhalation DAILY Qty: 1 RF: 0 potassium gluconate 595 mg (99 mg) Tablet 595 mg PO QAM RF: 0 diclofenac sodium 1 % gel 2 - 4 g TOPICAL BID PRN (Reason: Pain) RF: 0 Vitamin B-12 2 tab PO QAM RF: 0 metoprolol succinate 25 mg tablet extended release 24 hr 25 mg PO QAM RF: 0 albuterol sulfate 90 mcg/actuation HFA aerosol inhaler 2 puff INHALATION Q6H PRN (Reason: Shortness Of Breath) RF: 0 prednisone 10 mg tablet 10 - 20 mg PO DAILY PRN (Reason: Pain) RF: 0 albuterol sulfate 2.5 mg /3 mL (0.083 %) solution for nebulization 2.5 mg inhalation Q6H PRN (Reason: Shortness Of Breath) RF: 0 Zofran 4 mg Tablet 4 mg PO .TODAY RF: 0 meclizine 25 mg tablet 25 mg PO QID PRN (Reason: Nausea And Vomiting) RF: 0 baclofen 10 mg tablet 10 mg PO BEDTIME RF: 0 Vitamin D3 25 mcg (1,000 unit) Capsule 25 mcg PO DAILY RF: 0 calcium 1 tab PO QAM RF: 0 vitamin E 1 cap PO DAILY RF: 0 ondansetron 4 mg tablet,disintegrating 4 mg PO Q6H PRN (Reason: nausea and vomiting) Qty: 14 RF: 0 Discharge Orders: Discharge ED (Routine); Ordered 09/05/20 Ordered By: Vineet Valenzuela Referrals: Swati Lindo FNP [Primary Care Provider] - Discharge Diet: Advance as tolerated Discharge Activity: Resume usual activity Patient Instructions: Low Back Strain (ED), Opioid Safety Activity Restrictions/Additional Instructions: Have low back muscular pain. Please follow-up with your primary care physician in a couple days to discuss further and return to the ER with worsening symptoms. You may request an MRI at that time from your primary care physician as well as a referral to physical therapy to help strengthen your back. Coding Level of Care Code ED Shipping Checker for Evangelista Fwd Exam Comprehensive
[2020-09-05] MEDS: orphenadrine 30 mg/mL Inj 2 mL 60 MG IM (12:26)
[2020-09-05 13:53] VITALS: BP 129/51; PULSE 83; RESP 18; O2SAT 97
== END 2020-09-05 13:54 | disposition home or self-care (01) ==
PROVIDERS: Emergency Provider Family Medicine; PCP Registered Nurse
DX: S39.012A Strain of muscle, fascia and tendon of lower back, initial encounter (principal); J44.9 Chronic obstructive pulmonary disease, unspecified; Z87.891 Personal history of nicotine dependence; X58.XXXA Exposure to other specified factors, initial encounter
CPT/HCPCS: 96372; 99283; J2360

== ENCOUNTER 2020-09-09 10:13 | Outpatient (CLI) | payer MEDICARE, SELFPAY ==
--- NOTE | 2020-09-09 10:21 | XR_ITS ---
WS: [id number] Lumbar spine, 3 views, 09/09/2020 Clinical Data: S39.012A - Strain of muscle, fascia and tendon of lower back, initial encounter Comparison: Lumbar spine, 12/22/2019 Findings: There is degenerative disc disease at all levels. There is loss of central vertebral body height of t he L2 vertebral body. There is loss of at least 50% of the vertebral body height of L5. Diffuse osteoporosis and degenerative arthritis are present. The transverse processes and SI joints a re normal. There are clips in the right upper quadrant from a cholecystectomy. There may be a left re nal calcification. XR/XR lumbar spine 2-3V* [id number] Impression: 1. Degenerative disc disease, degenerative arthritis and osteoporosis. 2. Loss of centrilobular body height of L2 unchanged. 3. Further loss of vertebral body height of L5 compared prior exam.
--- NOTE | 2020-09-09 12:30 | XR_ITS ---
WS: [id number] KUB, AP view, 09/09/2020 Clinical Data: N39.0 - Urinary tract infection, site not specified Comparison: None. Findings: No abnormal intraabdominal masses are seen. There is no dilatated small bowel or evidence of obstruct ion. There is a calcification overlying the midportion of the left kidney. Fecal material obscures detail over both kidneys. There are numerous phleboliths in the pelvis. There are clips in the right upper q uadrant from a cholecystectomy. Degenerative change of the lumbar vertebral bodies is moderate. XR/XR KUB [id number] Impression: Probable left renal calcification.
== END 2020-09-09 10:14 | disposition home or self-care (01) ==
LOC: RAD 10:19
PROVIDERS: PCP Registered Nurse; Visit Provider Registered Nurse
DX: N39.0 Urinary tract infection, site not specified (principal); S39.012A Strain of muscle, fascia and tendon of lower back, initial encounter; X58.XXXA Exposure to other specified factors, initial encounter; M51.36 Other intervertebral disc degeneration, lumbar region; M47.816 Spondylosis without myelopathy or radiculopathy, lumbar region
CPT/HCPCS: 72100; 74018

== ENCOUNTER 2020-09-09 22:25 | Emergency (ER) | payer MEDICARE, SELFPAY ==
--- NOTE | 2020-09-09 22:26 | CTR_ITS ---
PROCEDURE INFORMATION: Exam: CT Abdomen And Pelvis Without Contrast Exam date and time: 09/09/2020 10:34 PM Age: 85 years old Clinical indication: Abdominal pain; Lower; Prior surgery; Surgery type: Gb. Hysterectomy. ; Patient HX: Severe back and bilat flank pain; Additional info: Abd pain TECHNIQUE: Imaging protocol: Computed tomography of the abdomen and pelvis without contrast. Radiation optimization: All CT scans at this facility use at least one of these dose optimization techniques: automated exposure control; mA and/or kV adjustment per patient size (includes targeted exams where dose is matched to clinical indication); or iterative reconstruction. COMPARISON: CT kidney stone [id number] 08/30/2020 3:56 PM RADIATION DOSE METRICS: Total DLP (mGy-cm): 1795.56 FINDINGS: Lungs: The visualized lung bases are clear. Mediastinal space: Small hiatal hernia. Liver: Normal size and density. No focal mass. Gallbladder and bile ducts: Status post cholecystectomy. No biliary dilatation. Pancreas: No evidence of mass. No ductal dilation. Spleen: No splenomegaly or mass. Adrenal glands: Normal. Kidneys and ureters: An 8 mm inferior left renal stone. A 2 mm right renal stone. No hydronephrosis. Stomach and bowel: Multiple diverticula, greatest in the distal sigmoid colon. A moderate to large amount of formed stool throughout colon. No signs of obstruction. Appendix: No evidence of appendicitis. Intraperitoneal space: No free air or fluid. No evidence of abscess. Vasculature: Prominent calcification at the origin of the celiac axis with a smaller than typical vessel. This is similar to the prior exam. Several other scattered systemic vascular calcifications. Lymph nodes: No lymphadenopathy. Urinary bladder: The urinary bladder is collapsed and not well evaluated. Reproductive: Status post hysterectomy. Bones/joints: Old compression deformity of the L5 vertebral body. The bones appear demineralized. Moderate degenerative changes of the spine. Soft tissues: Small fat containing epigastric hernia. CT/CT kidney stone [id number] IMPRESSION: 1. Severe sigmoid colon diverticulosis without signs of acute diverticulitis. 2. Nonobstructing renal stones. Radiation Dose CTDIVOL = (mGy): DLP = 1795.56 (mGy-cm)
[2020-09-09 22:39] VITALS: BP 130/80; PULSE 85; RESP 17; TEMP 36.8; O2SAT 98; BMI 32.5
[2020-09-09 22:51] VITALS: BP 129/72; PULSE 84; RESP 16; O2SAT 96
[2020-09-09 22:55] LABS: Add Urine Microscopic? NO; Charge for UA Resulting for Rev
--- NOTE | 2020-09-09 22:55 | W.ED.ABDPA2 ---
HPI - Abdominal Pain General: Chief Complaint: Abdominal Pain Stated Complaint: RUQ ABD PAIN Time Seen by Provider: 09/09/20 22:31 Source: patient Mode of arrival: ambulatory Limitations: no limitations History of Present Illness: HPI narrative: 85-year-old female patient presents to the emergency department with 2-day onset of left lower quadrant pain. She reports pain radiates to her back. She states was diagnosed with kidney stone and feels this is kidney stone related pain. States pain has not improved with [id number] use of Tylenol or Advil. She reports vomiting last night but none today. Patient reports she is hurting all over but more in her left side of her abdomen. She reports same pain she has exhibited in the past but pain has worsened. She denies fever or chills. She denies hematochezia or hematemesis. CT scan with IV contrast completed 08/30/2020 revealed bilateral nonobstructing kidney stones and age indeterminant severe L5 compression fracture. Lumbar spine series completed this morning revealed degenerative disc disease, further loss of vertebral body height of L5. Patient reports she is not able to take narcotics due to severe rapid heart rate she experiences with any pain medication she receives. She has received tramadol in the past. Associated Symptoms: Reports nausea (Last night) and vomiting (Last night); Denies belching, chills, diarrhea, dysuria, fever(s), heartburn and fecal incontinence Review of Systems General: Reports: 10 or more systems reviewed and unremarkable except in HPI and below Const: Denies: fever(s), chills or diaphoresis Eyes: Denies: blurry vision or eye redness ENMT: Denies: throat pain, dental pain or disequilibrium Card: Denies: chest pain, palpitations or irregular heart rhythm Resp: Denies: dyspnea, productive cough, non-productive cough or wheezing GI: Reports: abdominal pain, nausea (Last night) and vomiting (Last night); Denies: heartburn, diarrhea, belching or fecal incontinence : Denies: difficulty voiding or dysuria Musc: Reports: back pain and joint pain; Denies: neck pain Skin/Breast: Denies: rash or pruritus Neuro: Denies: headache(s), weakness in extremities or behavioral changes Psych: Denies: anxiety or depression Orion/Lymph: Denies: easy bruising PFSH ED PFSH: Medical History Arthritis COPD (chronic obstructive pulmonary disease) Social History Smoking and tobacco status: former smoker Alcohol intake: never Physical Exam Const: COMMON NORMALS: no acute distress, patient oriented x3, alert and well nourished GENERAL APPEARANCE: cooperative, well kempt, well developed and well hydrated NUTRITIONAL APPEARANCE: obese ORIENTATION/CONSCIOUSNESS: Yes awake, Yes oriented to person, Yes oriented to place and Yes oriented to time HENMT: COMMON NORMALS: normocephalic, Normal external nose present and moist oral mucous membranes HEAD & SCALP: normocephalic NOSE: Normal external nose present Eye: COMMON NORMALS: Equal, round and reactive pupils present and EOMs intact bilaterally GENERAL EYE: appearance normal, both eyes and all related structures PUPIL: Yes Equal, round and reactive pupils present Neck/C-Spine: COMMON NORMALS: full ROM and no lymphadenopathy GENERAL: Yes normal visual inspection and Yes trachea midline CERVICAL SPINE: Yes cervical ROM normal Lymph: LYMPHATIC: no lymphadenopathy noted Chest: COMMONS NORMALS: normal inspection of the chest and normal palpation of entire chest wall Resp: COMMON NORMALS: normal respiratory effort, No retractions, No use of accessory muscles and clear to auscultation bilaterally EFFORT & INSPECTION: Yes able to speak in complete sentences AUSCULTATION: clear to auscultation bilaterally Cardio: COMMON NORMALS: regular rate, regular rhythm, S1 normal heart sound present, S2 normal heart sound present and Peripheral pulses 2+ throughout RATE: regular rate RHYTHM: regular rhythm HEART SOUNDS: S1 normal heart sound present and S2 normal heart sound present PERIPHERAL PULSES: Peripheral pulses 2+ throughout GI: COMMON NORMALS: Normal to inspection, nondistended, normoactive bowel sounds present and Soft to palpation INSPECTION: Yes normal to inspection, No Abdominal wall edema, No abdominal distension and Yes central obesity PALPATION: Yes Soft to palpation and Yes Tenderness to palpation present (GI) Details: LLQ and LUQ : COMMON NORMALS: Yes no CVA tenderness BLADDER/KIDNEY EXAM: Yes no CVA tenderness Back/Pelvis: COMMON NORMALS: no CVA tenderness THORACIC SPINE/UPPER BACK: Yes pain with ROM and Yes paraspinal muscle tenderness LUMBAR SPINE/LOWER BACK: Yes pain with ROM, Yes paraspinal muscle tenderness, Yes straight leg raise positive right and Yes straight leg raise positive left PELVIS: Yes no pain with anterior-posterior compression OTHER: Patient was tender all over her back where she was touched. She reports pain was chronic in nature and not changed Extremity: COMMON NORMALS: normal to inspection, full ROM, capillary refill normal, no clubbing, cyanosis or edema and no calf tenderness GENERAL: Yes normal exam except as noted and Yes edema (1+ BLE) Neuro: COMMON NORMALS: patient oriented x3 and no focal motor deficits SENSORIUM/ORIENTATION: Yes alert, Yes oriented to person, Yes oriented to place and Yes oriented to time SPEECH: speech normal MOTOR EXAM: 5/5 motor strength present throughout Psych: COMMON NORMALS: mental status grossly normal, Normal thought process present and cooperative APPEARANCE: Yes well kempt ACTIVITY/MOTOR BEHAVIOR: Yes appropriate eye contact THOUGHT PROCESS: Normal thought process present Skin: COMMON NORMALS: no rashes or lesions noted, no wounds, turgor normal, no petechiae and no mottling GENERAL SKIN EXAM: no rashes or lesions noted and turgor normal Course Vital Signs: Vital signs: Vital Signs Temperature 98.2 F 09/09/20 22:39 Pulse Rate 90 09/09/20 23:40 Respiratory Rate 16 09/09/20 23:40 Blood Pressure 129/72 09/09/20 22:51 Pulse Oximetry 95 09/09/20 23:40 MDM - Abdominal Pain MDM Narrative: Medical decision making narrative: 85-year-old female patient presents to the emergency department with her daughter due to continued back pain and left lower quadrant abdominal pain. CT scan of the abdomen pelvis completed 08/30/2020 revealed age-indeterminate severe L5 compression fracture which had developed since 03/17/2017. Also of note were bilateral nonobstructing kidney stones. She presents to the ER [facility] with pain related tokidney stones. CT scan renal stone protocol revealed moderate amount of stool in the colon, multiple diverticula, severe sigmoid colon diverticulosis without signs of acute diverticulitis and nonobstructing renal stones. She was placed on Augmentin due to concern of early diverticulosis that could be developing. She also was placed in TLSO brace due to L5 compression fracture as x-ray of the LS spine completed today revealed further loss of vertebral body height of L5. She is not able to take pain medication due to sensitivity/side effects. She was able to tolerate tramadol without difficulty. Prescription has been provided along with referral to Dr. Jeong. 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 She reports goes to work every day, does not utilize a walker. I discussed with the patient pain control and other alternatives that may help with pain in her back. She is elected to attempt TLSO brace and is requesting referral to a specialist to help with back pain. Social service referral placed to assist with appointment Dr. Jeong for L5 compression fracture. Differential Diagnosis: Differential diagnosis abdominal pain: Likely abdominal pain, calculus of kidney and diverticulitis Lab Data: Labs: Lab Results 09/09/20 09/09/20 09/09/20 Range/Units 22:51 23:15 23:15 WBC 5.6 (4.0-10.0) 10^3/ uL RBC 4.35 (4.1-5.3) 10^6/u L Hgb 13.2 (11.5-15.3) g/dL Hct 42.7 (37.0-47.0) % MCV 98.2 (81-99) fL MCH 30.3 (28.0-34.0) pg MCHC 30.9 (30.0-36.0) g/dL RDW 12.5 (12.1-15.1) % Plt Count 164 (130-400) 10^3/c mm MPV 9.6 (7.4-10.4) fL Neut % (Auto) 71.0 % Lymph % (Auto) 18.7 % Burt % (Auto) 6.9 % Eos % (Auto) 1.1 % Baso % (Auto) 0.5 % Neut # (Auto) 3.99 (1.8-7.7) 10^3/u L Lymph # (Auto) 1.1 (0.8-4.8) 10^3/u L Burt # (Auto) 0.4 (0.2-0.9) 10^3/u L Eos # (Auto) 0.1 (0.0-0.8) 10^3/u L Baso # (Auto) 0.0 (0.0-0.1) 10^3/u L Nucleated RBC % (a uto) 0 % Nucleated RBCs # 0.0 /100WBC Sodium 140 (136-145) mmol/L Potassium 4.2 (3.5-5.1) mmol/L Chloride 102 (98-107) mmol/L Carbon Dioxide 30 H (22-29) mmol/L Anion Gap 12.2 (5-19) BUN 21 (8-23) mg/dL Creatinine 0.9 (0.5-0.9) mg/dL GFR Calculation Not Reportable Glucose 101 (65-115) mg/dL Calculated Osmolal ity 293 (285-295) mOsm/k g Calcium 8.2 L (8.5-10.5) mg/dL Total Bilirubin 0.4 (0.15-1.2) mg/dL AST 13 (0-32) U/L ALT 17 (0-33) U/L Alkaline Phosphata se 73 (35-105) IU/L Total Protein 5.7 L (6.6-8.7) g/dL Albumin 3.3 L (3.5-5.2) g/dL Globulin 2.4 (1.3-4.6) g/dL Lipase 15 (13-60) U/L Urine Color Yellow (Yellow) Urine Appearance Clear (CLEAR) Urine pH 5 (5-7) Ur Specific Gravit y 1.020 (1.005-1.030) Urine Protein Neg (Negative) Urine Glucose (UA) Norm (Normal) Urine Ketones Negative (Negative) Urine Blood Neg (Negative) Urine Nitrate Negative (Negative) Urine Bilirubin Neg (Negative) Urine Urobilinogen 1 H (Negative) mg/dL Ur Leukocyte Dayana ase Negative (Negative) Imaging Data ^: CT Abd/Pel: Radiologist's impression: [address] [address] [address] Scan Report Signed Patient: Brady Nails Unit #: [id number] : 1935 Age/Sex: 85 / F ADM Date: 09/09/20 Loc: ER Room/Bed: Attending Dr: Ordering Provider/Ordering MD: Suraj Sal MD Date of Service: 09/09/20 Procedure(s): CT kidney stone [id number] Accession Number(s): [id number] Report Number: [id number] PROCEDURE INFORMATION: Exam: CT Abdomen And Pelvis Without Contrast Exam date and time: 09/09/2020 10:34 PM Age: 85 years old Clinical indication: Abdominal pain; Lower; Prior surgery; Surgery type: Gb. Hysterectomy. ; Patient HX: Severe back and bilat flank pain; Additional info: Abd pain TECHNIQUE: Imaging protocol: Computed tomography of the abdomen and pelvis without contrast. Radiation optimization: All CT scans at this facility use at least one of these dose optimization techniques: automated exposure control; mA and/or kV adjustment per patient size (includes targeted exams where dose is matched to clinical indication); or iterative reconstruction. COMPARISON: CT kidney stone [id number] 08/30/2020 3:56 PM RADIATION DOSE METRICS: Total DLP (mGy-cm): 1795.56 FINDINGS: Lungs: The visualized lung bases are clear. Mediastinal space: Small hiatal hernia. Liver: Normal size and density. No focal mass. Gallbladder and bile ducts: Status post cholecystectomy. No biliary dilatation. Pancreas: No evidence of mass. No ductal dilation. Spleen: No splenomegaly or mass. Adrenal glands: Normal. Kidneys and ureters: An 8 mm inferior left renal stone. A 2 mm right renal stone. No hydronephrosis. Stomach and bowel: Multiple diverticula, greatest in the distal sigmoid colon. A moderate to large amount of formed stool throughout colon. No signs of obstruction. Appendix: No evidence of appendicitis. Intraperitoneal space: No free air or fluid. No evidence of abscess. Vasculature: Prominent calcification at the origin of the celiac axis with a smaller than typical vessel. This is similar to the prior exam. Several other scattered systemic vascular calcifications. Lymph nodes: No lymphadenopathy. Urinary bladder: The urinary bladder is collapsed and not well evaluated. Reproductive: Status post hysterectomy. Bones/joints: Old compression deformity of the L5 vertebral body. The bones appear demineralized. Moderate degenerative changes of the spine. Soft tissues: Small fat containing epigastric hernia. CT/CT kidney stone [id number] IMPRESSION: 1. Severe sigmoid colon diverticulosis without signs of acute diverticulitis. 2. Nonobstructing renal stones. Radiation Dose CTDIVOL = (mGy): DLP = 1795.56 (mGy-cm) Discharge Plan Discharge Patient Disposition: Home Clinical Impression: Diverticula of colon Abdominal pain Qualifiers: Abdominal location: left lower quadrant Qualified Code(s): R10.32 - Left lower quadrant pain Diverticulitis large intestine Qualifiers: Diverticulitis bleeding: without bleeding Diverticulitis complication: without perforation or abscess Qualified Code(s): K57.32 - Diverticulitis of large intestine without perforation or abscess without bleeding Closed compression fracture of L5 vertebra Qualifiers: Encounter type: initial encounter Qualified Code(s): S32.050A - Wedge compression fracture of fifth lumbar vertebra, initial encounter for closed fracture Condition: Stable Prescriptions: New Augmentin 875-125 mg tablet 1 tab PO BID Qty: 20 RF: 0 Miralax 17 gram/dose powder 17 g PO DAILY Qty: 510 RF: 0 tramadol 50 mg tablet 50 mg PO Q4H PRN (Reason: pain) Qty: 14 RF: 0 No Action prednisone 5 mg tablet 5 mg PO DAILY PRN (Reason: pain (scale score 4-6)) Qty: 30 RF: 0 oxygen 2 l nasal DAILY 365 Days Qty: 1 RF: 0 Trelegy Ellipta 100-62.5-25 mcg blister with device 1 inh inhalation DAILY Qty: 1 RF: 0 ciprofloxacin HCl [Cipro] 500 mg tablet 500 mg PO BID Qty: 14 RF: 0 potassium gluconate 595 mg (99 mg) Tablet 595 mg PO QAM RF: 0 diclofenac sodium 1 % gel 2 - 4 g TOPICAL BID PRN (Reason: Pain) RF: 0 Vitamin B-12 2 tab PO QAM RF: 0 metoprolol succinate 25 mg tablet extended release 24 hr 25 mg PO QAM RF: 0 albuterol sulfate 90 mcg/actuation HFA aerosol inhaler 2 puff INHALATION Q6H PRN (Reason: Shortness Of Breath) RF: 0 albuterol sulfate 2.5 mg /3 mL (0.083 %) solution for nebulization 2.5 mg inhalation Q6H PRN (Reason: Shortness Of Breath) RF: 0 baclofen 10 mg tablet 10 mg PO BEDTIME RF: 0 Vitamin D3 25 mcg (1,000 unit) Capsule 25 mcg PO DAILY RF: 0 calcium 1 tab PO QAM RF: 0 vitamin E 1 cap PO DAILY RF: 0 Discharge Orders: Discharge ED (Routine); Ordered 09/09/20 Ordered By: Rosie Millan Referrals: Swati Lindo, RISK MANAGEMENT MANAGER [Primary Care Provider] - Discharge Diet: GI Soft Discharge Activity: Limit activity as instructed Patient Instructions: Fractures - Compression, Diverticulitis (ED), Diverticulitis Diet (ED), Abdominal Pain (ED), Opioid Safety Activity Restrictions/Additional Instructions: Follow-up with your primary care physician in 5 to 7 days to ensure you are improving, sooner if worse if worsening symptoms Return to the emergency department if you develop fever chills nausea vomiting or other concerning symptoms Take Augmentin until all gone, even if better Avoid foods with nuts seeds or corn as this can flare diverticulosis symptoms Stool softener daily, prescription of MiraLAX has been provided so bowel movements can be normal and regular. human resources services specialist will be contacting you with an appointment with a specialist for compression fracture treatment Coding Level of Care Code ED Air Quality Specialist for Chg Fwd Exam Comprehensive
--- NOTE | 2020-09-09 22:56 | PC.NURSE ---
patient to CT
[2020-09-09 23:02] LABS: Bilirubin Urine Neg (Negative); Blood Urine Neg (Negative); Glucose Urine UA Norm (Normal); Ketones Urine Negative (Negative); Leukocyte Esterase Urine Negative (Negative); Nitrate Urine Negative (Negative); Protein Urine Neg (Negative); Urine Appearance Clear (CLEAR); Urine Color Yellow (Yellow); Urobilinogen Urine 1 mg/dL (Negative); pH Urine 5 (5-7)
[2020-09-09] MEDS: TRAMadol 50 mg Tablet PO (23:16)
[2020-09-09 23:20] VITALS: PULSE 83; RESP 17; O2SAT 97
[2020-09-09 23:24] LABS: Basophils % 0.5 %; Eosinophils # 0.1 10^3/uL (0.0-0.8); Eosinophils % 1.1 %; Hematocrit 42.7 % (37.0-47.0); Hemoglobin 13.2 g/dL (11.5-15.3); Lymphocytes # 1.1 10^3/uL (0.8-4.8); Lymphocytes % 18.7 %; Mean Corpuscular HGB Conc 30.9 g/dL (30.0-36.0); Mean Corpuscular Hemoglobin 30.3 pg (28.0-34.0); Mean Corpuscular Volume 98.2 fL (81-99); Mean Platelet Volume 9.6 fL (7.4-10.4); Monocytes # 0.4 10^3/uL (0.2-0.9); Monocytes % 6.9 %; Neutrophils # 3.99 10^3/uL (1.8-7.7); Nucleated Red Blood Cells % 0 %; Platelet Count 164 10^3/cmm (130-400); Red Blood Count 4.35 10^6/uL (4.1-5.3); Red Cell Distribution Width 12.5 % (12.1-15.1); White Blood Count 5.6 10^3/uL (4.0-10.0)
[2020-09-09] MEDS: amoxicillin-clav 875-125 mg Tablet 1 TAB PO (23:39)
[2020-09-09 23:40] VITALS: PULSE 90; RESP 16; O2SAT 95
[2020-09-09 23:42] LABS: Alanine Aminotransferase 17 U/L (0-33); Albumin Level 3.3 g/dL (3.5-5.2); Alkaline Phosphatase 73 IU/L (35-105); Anion Gap 12.2 (5-19); Aspartate Amino Transferase 13 U/L (0-32); Blood Urea Nitrogen 21 mg/dL (8-23); Calcium 8.2 mg/dL (8.5-10.5); Carbon Dioxide 30 mmol/L (22-29); Chloride 102 mmol/L (98-107); Globulin 2.4 g/dL (1.3-4.6); Glucose 101 mg/dL (65-115); Lipase 15 U/L (13-60); Osmolality Calculated 293 mOsm/kg (285-295); Potassium 4.2 mmol/L (3.5-5.1); Sodium 140 mmol/L (136-145); Total Bilirubin 0.4 mg/dL (0.15-1.2); Total Protein 5.7 g/dL (6.6-8.7)
[2020-09-10 00:55] VITALS: BP 132/55; O2SAT 96
[2020-09-10 01:14] VITALS: BP 147/57; PULSE 91; RESP 18; O2SAT 93
[2020-09-10 01:35] VITALS: BP 147/66; PULSE 84; RESP 16; O2SAT 96
--- NOTE | 2020-09-10 11:58 | DCPLANNER ---
manager of loss prevention operations had message to schedule a follow up appointment for patient with ortho. manager of loss prevention operations called the ortho clinic, spoke with Aster, gave clinic patients information. manager of loss prevention operations was told that patients information would be printed and reviewed. Clinic will call patient with appointment information.
--- NOTE | 2020-09-11 08:54 | DCPLANNER ---
Patient has a follow up appointment scheduled for Friday, September 11, 2020 at 9:[address] Jeong at ortho. Clinic will call patient with appointment information.
--- NOTE | 2020-09-16 12:33 | DCPLANNER ---
Patient had a follow up appointment scheduled for 09.11.[address] Jeong at [facility] - patient did attend appointment.
== END 2020-09-10 01:59 | disposition home or self-care (01) ==
PROVIDERS: Emergency Medicine; Emergency Provider Nurse Practitioner Family; PCP Registered Nurse
DX: K57.32 Diverticulitis of large intestine without perforation or abscess without bleeding (principal); S32.050A Wedge compression fracture of fifth lumbar vertebra, initial encounter for closed fracture; J44.9 Chronic obstructive pulmonary disease, unspecified; Z87.891 Personal history of nicotine dependence; X58.XXXA Exposure to other specified factors, initial encounter
CPT/HCPCS: 74176; 80053; 81003; 83690; 85025; 99283; L0456

== ENCOUNTER 2020-09-11 12:27 | Emergency (ER) | payer MEDICARE, SELFPAY ==
[2020-09-11 12:43] VITALS: BP 118/75; PULSE 87; RESP 20; TEMP 36.9; O2SAT 98; BMI 31.6
[2020-09-11 13:12] VITALS: BP 107/50; PULSE 84; RESP 18; O2SAT 96
--- NOTE | 2020-09-11 13:29 | W.ED.ABDPA2 ---
HPI - Abdominal Pain General: Chief Complaint: Abdominal Pain Stated Complaint: THROWING UP BLOOD Time Seen by Provider: 09/11/20 13:05 Source: patient and family (daughter) Mode of arrival: ambulatory Limitations: no limitations History of Present Illness: HPI narrative: 85-year-old female patient who has been to the emergency department several times in the last week for similar complaints. She is currently being worked up for compression fracture of L5 vertebrae. She saw the spine surgeon this morning and while she was having lunch with her daughter had an episode of coughing up blood. There was a small amount of blood about a teaspoon size. She has had similar every day this week and it is about the same size. She denies shortness of breath. Denies vomiting of blood. Denies chest pain. Associated Symptoms: Denies anorexia, belching, bloating, change in bowel habits, change in stool character, chills, coffee ground emesis, constipation, GI cramping, diarrhea, dyspepsia, dysuria, excessive flatus, fever(s), heartburn, hematochezia, hematuria, hematemesis, fecal incontinence, loose stools, melena, nausea, poor appetite, syncope and vomiting Review of Systems General: Reports: 10 or more systems reviewed and unremarkable except in HPI and below Const: Denies: fever(s) or chills Card: Denies: syncope GI: Denies: nausea, vomiting, hematemesis, coffee ground emesis, heartburn, diarrhea, constipation, bloating, GI cramping, belching, excessive flatus, fecal incontinence, change in bowel habits, change in stool character, hematochezia or melena : Denies: dysuria or hematuria PFS ED PFSH: Medical History Arthritis COPD (chronic obstructive pulmonary disease) Social History Smoking and tobacco status: former smoker Alcohol intake: never Physical Exam Narrative: EXAM NARRATIVE: She is in a TLSO brace Const: COMMON NORMALS: no acute distress, average body habitus, patient oriented x3, no limitations, healthy appearing, alert and well nourished HENMT: COMMON NORMALS: normocephalic, atraumatic and moist oral mucous membranes HEAD & SCALP: normocephalic and atraumatic Neck/C-Spine: COMMON NORMALS: no meningeal signs and no JVD Resp: COMMON NORMALS: normal respiratory effort, No retractions, No use of accessory muscles, clear to auscultation bilaterally and percussion normal AUSCULTATION: clear to auscultation bilaterally PERCUSSION: percussion normal Cardio: COMMON NORMALS: no JVD, regular rate, regular rhythm, S1 normal heart sound present, S2 normal heart sound present, No gallops present (Cardio), No clicks present (Cardio), No murmurs present (Cardio), No rub (Cardio) and Peripheral pulses 2+ throughout RATE: regular rate RHYTHM: regular rhythm HEART SOUNDS: S1 normal heart sound present and S2 normal heart sound present PERIPHERAL PULSES: Peripheral pulses 2+ throughout GI: COMMON NORMALS: Normal to inspection, nondistended, normoactive bowel sounds present, Soft to palpation, non-tender, No hepatosplenomegaly present, no masses and no bruits PALPATION: Yes Soft to palpation and Yes No hepatosplenomegaly present Extremity: COMMON NORMALS: normal to inspection, full ROM, capillary refill normal, no calf tenderness and no pedal edema Neuro: COMMON NORMALS: patient oriented x3 SENSORIUM/ORIENTATION: Yes alert MENINGEAL SIGNS: Yes no meningeal signs Skin: COMMON NORMALS: no rashes or lesions noted, no wounds, turgor normal, no jaundice, no petechiae and no mottling GENERAL SKIN EXAM: no rashes or lesions noted and turgor normal Course Reevaluation(s): Reevaluation #1: She would like to be discharged. She does not want any investigations done until she takes care of her back and has back surgery. I explained that if the cause of hemoptysis is serious it could lead to faster than her back pain can, and explained that i will like to obatin a CTA of her chest. She still declined and as to be discharged home. She understands the risks and promised to return if the hemoptysis gets worse. Time: 13:30 Vital Signs: Vital signs: Vital Signs Temperature 98.5 F 09/11/20 12:43 Pulse Rate 84 09/11/20 13:40 Respiratory Rate 16 09/11/20 13:40 Blood Pressure 116/53 09/11/20 13:40 Pulse Oximetry 97 09/11/20 13:40 MDM - Abdominal Pain MDM Narrative: Medical decision making narrative: 85-year-old female patient who presents to the emergency department with small volume hemoptysis. Patient declined to be worked up, declined lab work and imaging studies. She asked to be discharged home and if her symptoms get worse she will return to be evaluated. Her primary focus now is to obtain surgery for her compression fracture. Medical Records: Attestation: I reviewed the patient's medical records. Discharge Plan Discharge Patient Disposition: Home Clinical Impression: Hemoptysis Condition: Stable Prescriptions: Continued prednisone 5 mg tablet 5 mg PO DAILY PRN (Reason: pain (scale score 4-6)) Qty: 30 RF: 0 oxygen 2 l nasal DAILY 365 Days Qty: 1 RF: 0 Trelegy Ellipta 100-62.5-25 mcg blister with device 1 inh inhalation DAILY Qty: 1 RF: 0 ciprofloxacin HCl [Cipro] 500 mg tablet 500 mg PO BID Qty: 14 RF: 0 potassium gluconate 595 mg (99 mg) Tablet 595 mg PO QAM RF: 0 diclofenac sodium 1 % gel 2 - 4 g TOPICAL BID PRN (Reason: Pain) RF: 0 Vitamin B-12 2 tab PO QAM RF: 0 metoprolol succinate 25 mg tablet extended release 24 hr 25 mg PO QAM RF: 0 albuterol sulfate 90 mcg/actuation HFA aerosol inhaler 2 puff INHALATION Q6H PRN (Reason: Shortness Of Breath) RF: 0 albuterol sulfate 2.5 mg /3 mL (0.083 %) solution for nebulization 2.5 mg inhalation Q6H PRN (Reason: Shortness Of Breath) RF: 0 baclofen 10 mg tablet 10 mg PO BEDTIME RF: 0 cholecalciferol (vitamin D3) [Vitamin D3] 25 mcg (1,000 unit) Capsule 25 mcg PO DAILY RF: 0 calcium 1 tab PO QAM RF: 0 vitamin E 1 cap PO DAILY RF: 0 amoxicillin-pot clavulanate [Augmentin] 875-125 mg tablet 1 tab PO BID Qty: 20 RF: 0 polyethylene glycol 3350 [Miralax] 17 gram/dose powder 17 g PO DAILY Qty: 510 RF: 0 tramadol 50 mg tablet 50 mg PO Q4H PRN (Reason: pain) Qty: 14 RF: 0 No Action prednisone 10 mg tablet 10 - 20 mg PO DAILY PRN (Reason: Pain) RF: 0 ondansetron HCl 4 mg tablet 4 mg PO Q6H PRN (Reason: Nausea) RF: 0 meclizine 25 mg tablet 25 mg PO QID PRN (Reason: Dizziness) RF: 0 Advil 200 mg Tablet 800 mg PO PRN RF: 0 Discharge Orders: Discharge ED (Routine); Ordered 09/11/20 Ordered By: Renetta Eagle Referrals: Swati Lindo FNP [Primary Care Provider] - 1-3 days Discharge Diet: Usual diet Discharge Activity: Resume usual activity Patient Instructions: Acute Hemoptysis (ED) Activity Restrictions/Additional Instructions: Return for any new or worsening symptoms, especially if the cough up blood is worse. Follow-up with your primary care provider within 3 days. Continue your home medications. Coding Level of Care Code ED Research Manufacturing Operator for Evangelista Britt
[2020-09-11 13:40] VITALS: BP 116/53; PULSE 84; RESP 16; O2SAT 97
== END 2020-09-11 13:41 | disposition home or self-care (01) ==
PROVIDERS: Emergency Provider Family Medicine; PCP Registered Nurse
DX: R04.2 Hemoptysis (principal); Z79.52 Long term (current) use of systemic steroids; Z99.81 Dependence on supplemental oxygen; Z87.891 Personal history of nicotine dependence; J44.9 Chronic obstructive pulmonary disease, unspecified; M19.90 Unspecified osteoarthritis, unspecified site
CPT/HCPCS: 99281

== ENCOUNTER 2020-09-15 09:24 | Outpatient (CLI) | payer MEDICARE, SELFPAY ==
--- NOTE | 2020-09-15 10:15 | MR_ITS ---
WS: [id number] MRI LUMBAR SPINE NONCONTRAST HISTORY: S32.050A - Wedge compression fracture of fifth lumbar vertebra, initial encounter for closed fracture COMPARISON: 09/09/2020 TECHNIQUE: Sagittal and axial multisequence imaging is submitted. Mild increase in the cervical lordosis and thoracic kyphosis. Disc spaces are narrowed throughout the cervical and thoracic spine with mild degenerative scoliosis. Moderate increase in the lumbar lordosis. Disc spaces are narrowed and desiccated throughout the lumb ar spine. L2 compression fracture by 10%. There is marrow edema throughout greater than 50% of the vertebral brissa dy, greatest within the superior endplate with RIGHT posterior retropulsion. No marrow edema in the p edicles. L5 burst fracture with retropulsion of the posterior superior endplate by 6.4 mm. Approximately 50% l oss of height with marrow edema just underneath the superior endplate. Conus terminates normally at L1. L1-L2: Mild annular disc bulging and osteophytic ridging. Very mild encroachment upon the central the almas sac and mild bilateral foraminal narrowing. Very slight retropulsion of the posterior superior en dplate of L1 on the RIGHT causing contact and deformity of the RIGHT lateral thecal sac and narrowing of the RIGHT lateral recess. L2-L3: Diffuse annular disc bulging with moderate ligamentum flavum and facet arthritis. Mild central and subarticular recess stenosis. L3-L4: Diffuse annular disc bulging and osteophytic ridging. Mild central and bilateral foraminal rebecca nosis. L4-L5: Retropulsion of posterior superior endplate of L5 causing severe encroachment and stenosis of the central canal. Severe central and bilateral lateral recess and moderate foraminal stenosis. There is contact and displacement of the L5 nerve roots bilaterally. L5-S1: Mild annular disc bulging and osteophytic ridging. Mild LEFT foraminal stenosis. MR/MR lumbar spine wo con* [id number] IMPRESSION: 1. 50% burst fracture of L5. Acute to subacute fracture with marrow edema sonal g the superior endplate. 2. Severe central and bilateral lateral recess and moderate foraminal stenosis at L4-5 with contact and displacement of the L5 nerve roots. 3. Mild central and bilateral foraminal stenosis at L3-4. 4. Mild central and subarticular recess stenosis at L2-3. 5. Posterior retropulsion superior endplate of L2 extends into the RIGHT later al recess with mild stenosis.
== END 2020-09-15 09:25 | disposition home or self-care (01) ==
LOC: RADSHAW 09:27
PROVIDERS: PCP Registered Nurse; Visit Provider Orthopaedic Surgery
DX: S32.050A Wedge compression fracture of fifth lumbar vertebra, initial encounter for closed fracture (principal); X58.XXXA Exposure to other specified factors, initial encounter; M48.061 Spinal stenosis, lumbar region without neurogenic claudication
CPT/HCPCS: 72148

== ENCOUNTER → 2020-09-16 11:31 | Outpatient (BNVA) | payer MEDICARE, SELFPAY | PROVIDERS: PCP Registered Nurse; Visit Provider Orthopaedic Surgery | DX: Z01.818 Encounter for other preprocedural examination (principal); Z20.822 Contact with and (suspected) exposure to COVID-19 | CPT/HCPCS: 87635 ==

== ENCOUNTER 2020-09-17 16:59 | Emergency (ER) | payer MEDICARE, SELFPAY ==
[2020-09-17 17:29] VITALS: BP 113/71; PULSE 79; RESP 16; TEMP 36.9; O2SAT 99; BMI 32.2
--- NOTE | 2020-09-17 17:40 | USR_ITS ---
PROCEDURE INFORMATION: Exam: US Duplex Left Lower Extremity Veins, Limited Exam date and time: 09/17/2020 5:47 PM Age: 85 years old Clinical indication: Pain; Leg, lower; Left; Additional info: Leg swelling TECHNIQUE: Imaging protocol: Real-time Duplex ultrasound of the Left Lower Extremity with 2-D diaz scale, color Doppler flow and spectral waveform analysis with image documentation. Limited exam focused on the left lower extremity veins. Total images: 34 COMPARISON: No relevant prior studies available. FINDINGS: Left deep veins: Examination is positive for occlusive deep venous thrombosis from the common femoral vein distally. Left superficial veins: Proximal greater saphenous vein remains patent. Soft tissues: Amaro's cyst. US/[place] [id number] IMPRESSION: Examination is positive for occlusive deep venous thrombosis from the common femoral vein distally.
--- NOTE | 2020-09-17 17:42 | W.ED.EXTPRO ---
Documented by User: Brian Denney DO 09/18/20 10:21 HPI - Extremity Problem General: Chief complaint: Extremity Problem,Nontraumatic Stated complaint: leg pain Time Seen by Provider: 09/17/20 17:37 History of Present Illness: HPI Narrative: 85-year-old female comes in complaining of low back pain which has been chronic she is scheduled for vertebral kyphoplasty tomorrow. She has some left lower leg swelling the last couple days she was seen by her primary care provider today midlevel who sent her in for a venous duplex of the left leg. MD Complaint: extremity swelling Onset (ago): day(s) Pain Consistency: intermittent Location: left and lower extremity Quality: aching Radiation: none Relieving factors: elevation Exacerbating factors: weight bearing and walking Associated symptoms: Deny arthralgias, chest pain, fever(s), myalgias, rash or short of breath Review of Systems Const: Denies: fever(s) ENMT: Denies: throat pain, ear or mastoid pain, nasal discharge or nasal congestion Card: Denies: chest pain Resp: Denies: dyspnea, productive cough or non-productive cough GI: Denies: abdominal pain, nausea, vomiting, hematemesis, coffee ground emesis, diarrhea, constipation, bloating, hematochezia or melena : Denies: flank pain, difficulty voiding, dysuria, urinary frequency or urinary urgency Skin/Breast: Denies: rash PFSH ED PFSH: Medical History Arthritis COPD (chronic obstructive pulmonary disease) Social History Smoking and tobacco status: former smoker Alcohol intake: never Physical Exam Const: COMMON NORMALS: no acute distress GENERAL APPEARANCE: cooperative and comfortable ORIENTATION/CONSCIOUSNESS: Yes awake, Yes oriented to person, Yes oriented to place and Yes oriented to time HENMT: COMMON NORMALS: normocephalic, atraumatic and hearing grossly normal bilaterally HEAD & SCALP: normocephalic and atraumatic Neck/C-Spine: COMMON NORMALS: no JVD Resp: COMMON NORMALS: normal respiratory effort, No retractions, No use of accessory muscles and clear to auscultation bilaterally AUSCULTATION: clear to auscultation bilaterally Cardio: COMMON NORMALS: no JVD, regular rate, regular rhythm and No murmurs present (Cardio) RATE: regular rate RHYTHM: regular rhythm GI: COMMON NORMALS: Soft to palpation and No hepatosplenomegaly present AUSCULTATION: Yes normoactive bowel sounds PALPATION: Yes Soft to palpation, No Tenderness to palpation present (GI), No Guarding due to palpation present (GI) and Yes No hepatosplenomegaly present Extremity: NARRATIVE EXTREMITY EXAM: Is the home is 1+ edema of the left lower extremity below the knee Neuro: SENSORIUM/ORIENTATION: Yes oriented to person, Yes oriented to place and Yes oriented to time Skin: COMMON NORMALS: no rashes or lesions noted GENERAL SKIN EXAM: no rashes or lesions noted Course Vital Signs: Vital signs: Vital Signs Temperature 98.4 F 09/17/20 17:29 Pulse Rate 79 09/17/20 17:29 Respiratory Rate 17 09/17/20 18:27 Blood Pressure 113/71 09/17/20 17:29 Pulse Oximetry 99 09/17/20 17:29 MDM - Extremity (Nontraumatic) MDM Narrative: Medical decision making narrative: Awaiting ultrasound report. Care turned over to Dr. Sal at change of shift to see his notes for final diagnosis and disposition Discharge Plan Discharge Patient Disposition: Home Clinical Impression: Deep vein thrombosis of lower extremity Qualifiers: Affected thrombotic vein of extremity: unspecified vein of extremity Chronicity: acute Laterality: left Qualified Code(s): I82.402 - Acute embolism and thrombosis of unspecified deep veins of left lower extremity Condition: Stable Prescriptions: New Eliquis 5 mg tablet 10 mg PO BID Qty: 14 RF: 0 Eliquis 5 mg tablet 5 mg PO BID Qty: 60 RF: 0 No Action oxygen 2 l nasal DAILY 365 Days Qty: 1 RF: 0 mupirocin 2 % ointment 1 applic topical BID Qty: 22 RF: 0 potassium gluconate 595 mg (99 mg) Tablet 595 mg PO DAILY@09 RF: 0 diclofenac sodium 1 % gel 2 - 4 g TOPICAL BID PRN (Reason: Pain) RF: 0 Vitamin B-12 2 tab PO DAILY@09 RF: 0 prednisone 10 mg tablet 10 - 20 mg PO DAILY PRN (Reason: Pain) RF: 0 ondansetron HCl 4 mg tablet 4 mg PO Q6H PRN (Reason: Nausea) RF: 0 meclizine 25 mg tablet 25 mg PO QID PRN (Reason: Dizziness) RF: 0 ibuprofen [Advil] 200 mg Tablet 800 mg PO DAILY PRN (Reason: Pain) RF: 0 Miralax 17 gram/dose powder 17 g PO DAILY PRN (Reason: Constipation) RF: 0 Trelegy Ellipta 100-62.5-25 mcg blister with device 1 inh inhalation DAILY@09 RF: 0 metoprolol succinate 25 mg tablet extended release 24 hr 25 mg PO DAILY@09 RF: 0 albuterol sulfate 90 mcg/actuation HFA aerosol inhaler 2 puff INHALATION Q6H PRN (Reason: Shortness Of Breath) RF: 0 albuterol sulfate 2.5 mg /3 mL (0.083 %) solution for nebulization 2.5 mg inhalation Q6H PRN (Reason: Shortness Of Breath) RF: 0 baclofen 10 mg tablet 10 mg PO BEDTIME@1800 RF: 0 cholecalciferol (vitamin D3) [Vitamin D3] 25 mcg (1,000 unit) Capsule 25 mcg PO DAILY@09 RF: 0 calcium 1 tab PO DAILY@09 RF: 0 vitamin E 1 cap PO DAILY@09 RF: 0 amoxicillin-pot clavulanate [Augmentin] 875-125 mg tablet 1 tab PO BID Qty: 20 RF: 0 tramadol 50 mg tablet 50 mg PO Q4H PRN (Reason: pain) Qty: 14 RF: 0 Discharge Orders: Discharge ED (Routine); Ordered 09/17/20 Ordered By: Suraj Sal Referrals: Swati Lindo, JITNEY DRIVER [Primary Care Provider] - 1-3 days Discharge Diet: Advance as tolerated Discharge Activity: Resume usual activity Patient Instructions: Deep Venous Thrombosis (ED) Coding Level of Care Code ED Lunchroom Supervisor for Chg Fwd Documented by User: Suraj Sal MD 09/17/20 18:19 HPI - Extremity Problem General: Chief complaint: Extremity Problem,Nontraumatic Stated complaint: leg pain Time Seen by Provider: 09/17/20 17:37 COUNT INCLUDES THE [facility] ED PFSH: Medical History Arthritis COPD (chronic obstructive pulmonary disease) Social History Smoking and tobacco status: former smoker Alcohol intake: never Course Vital Signs: Vital signs: Vital Signs Temperature 98.4 F 09/17/20 17:29 Pulse Rate 79 09/17/20 17:29 Respiratory Rate 17 09/17/20 18:27 Blood Pressure 113/71 09/17/20 17:29 Pulse Oximetry 99 09/17/20 17:29 MDM - Extremity (Nontraumatic) MDM Narrative: Medical decision making narrative: Patient presents here with a DVT to her left leg likely causing her swelling. She has no signs of pulmonary embolism. We will start her on Eliquis and she is to follow-up with PCP and return if any worsening symptoms. I did inform her she has any shortness of breath she is return immediately. She understands agrees to plan. Imaging Data^: US Vascular: Attestation: I personally reviewed and interpreted this imaging study as follows: My impression: dvt left leg Discharge Plan Discharge Patient Disposition: Home Clinical Impression: Deep vein thrombosis of lower extremity Qualifiers: Affected thrombotic vein of extremity: unspecified vein of extremity Chronicity: acute Laterality: left Qualified Code(s): I82.402 - Acute embolism and thrombosis of unspecified deep veins of left lower extremity Condition: Stable Prescriptions: New Eliquis 5 mg tablet 10 mg PO BID Qty: 14 RF: 0 Eliquis 5 mg tablet 5 mg PO BID Qty: 60 RF: 0 No Action oxygen 2 l nasal DAILY 365 Days Qty: 1 RF: 0 mupirocin 2 % ointment 1 applic topical BID Qty: 22 RF: 0 potassium gluconate 595 mg (99 mg) Tablet 595 mg PO DAILY@09 RF: 0 diclofenac sodium 1 % gel 2 - 4 g TOPICAL BID PRN (Reason: Pain) RF: 0 Vitamin B-12 2 tab PO DAILY@09 RF: 0 prednisone 10 mg tablet 10 - 20 mg PO DAILY PRN (Reason: Pain) RF: 0 ondansetron HCl 4 mg tablet 4 mg PO Q6H PRN (Reason: Nausea) RF: 0 meclizine 25 mg tablet 25 mg PO QID PRN (Reason: Dizziness) RF: 0 ibuprofen [Advil] 200 mg Tablet 800 mg PO DAILY PRN (Reason: Pain) RF: 0 Miralax 17 gram/dose powder 17 g PO DAILY PRN (Reason: Constipation) RF: 0 Trelegy Ellipta 100-62.5-25 mcg blister with device 1 inh inhalation DAILY@09 RF: 0 metoprolol succinate 25 mg tablet extended release 24 hr 25 mg PO DAILY@09 RF: 0 albuterol sulfate 90 mcg/actuation HFA aerosol inhaler 2 puff INHALATION Q6H PRN (Reason: Shortness Of Breath) RF: 0 albuterol sulfate 2.5 mg /3 mL (0.083 %) solution for nebulization 2.5 mg inhalation Q6H PRN (Reason: Shortness Of Breath) RF: 0 baclofen 10 mg tablet 10 mg PO BEDTIME@1800 RF: 0 cholecalciferol (vitamin D3) [Vitamin D3] 25 mcg (1,000 unit) Capsule 25 mcg PO DAILY@09 RF: 0 calcium 1 tab PO DAILY@09 RF: 0 vitamin E 1 cap PO DAILY@09 RF: 0 amoxicillin-pot clavulanate [Augmentin] 875-125 mg tablet 1 tab PO BID Qty: 20 RF: 0 tramadol 50 mg tablet 50 mg PO Q4H PRN (Reason: pain) Qty: 14 RF: 0 Discharge Orders: Discharge ED (Routine); Ordered 09/17/20 Ordered By: Suraj Sal Referrals: Swati Lindo FNP [Primary Care Provider] - 1-3 days Discharge Diet: Advance as tolerated Discharge Activity: Resume usual activity Patient Instructions: Deep Venous Thrombosis (ED) Coding Level of Care Code ED Lunchroom Supervisor for Evangelista Britt
[2020-09-17 18:27] VITALS: RESP 17
== END 2020-09-17 18:27 | disposition home or self-care (01) ==
PROVIDERS: Emergency Provider Emergency Medicine; PCP Registered Nurse
DX: I82.402 Acute embolism and thrombosis of unspecified deep veins of left lower extremity (principal); J44.9 Chronic obstructive pulmonary disease, unspecified; Z87.891 Personal history of nicotine dependence
CPT/HCPCS: 93971; 99282

== ENCOUNTER 2020-09-19 08:49 | Inpatient (IN) | payer MEDICARE, SELFPAY ==
[2020-09-19] VITALS (10 sets, daily range): BP systolic 100–110; BP diastolic 52–69; PULSE 74–104; RESP 16–19; TEMP 36.4–37.3; O2SAT 94–100; BMI 40.2
--- NOTE | 2020-09-19 12:37 | XRR_ITS ---
PROCEDURE INFORMATION: Exam: XR Left Hip Exam date and time: 09/19/2020 2:42 PM Age: 85 years old Clinical indication: Hip pain; Left hip TECHNIQUE: Imaging protocol: XR Left hip. Views: 2 or 3 views hip with pelvis when performed. COMPARISON: CT kidney stone [id number] 09/09/2020 11:11 PM FINDINGS: Bones/joints: No acute fracture. Normal contour of the femoral head. Minimal hip joint space narrowing. Soft tissues: Unremarkable. XR/XR hip LT 2-3V wo/w pel* [id number] IMPRESSION: No acute fracture.
--- NOTE | 2020-09-19 12:38 | NMR_ITS ---
PROCEDURE INFORMATION: Exam: CO Lung Ventilation and Perfusion Imaging Exam date and time: 09/19/2020 1:20 PM Age: 85 years old Clinical indication: Pain; Other: Lower back, bilat legs; Patient HX: Copd, ckd, vte; Additional info: Vte, hemoptysis, assess for pe TECHNIQUE: Imaging protocol: Nuclear pulmonary ventilation with aerosol or gas was performed followed by perfusion. Views: Ventilation acquired with multiple projections. Perfusion acquired with multiple projections. Radiopharmaceutical: 5.2 mCi Tc-99m MAA (Macroaggregated Albumin), IV. 29.9 mCi Tc-99m DTPA (DTPA Aerosol), Inhalation. COMPARISON: CT chest wo con [id number] 08/26/2020 2:37 PM FINDINGS: Ventilation: Central deposition of the radiopharmaceutical. Perfusion: Decreased perfusion in the posterior left upper lung either greater or more apparent than the ventilation abnormality. NM/NM pul vent and perfus* [id number] IMPRESSION: Indeterminate probability for pulmonary embolism. Consider follow-up CTA for further evaluation if indicated.
--- NOTE | 2020-09-19 13:06 | PM.HP ---
Providers/Chief Complaint Admitting Physician: Rod Ivy MD Primary Care Provider: GERARDO Herron Chief Complaint: DVT History of Present Illness 85-year-old lady with COPD, on chronic oxygen 2 L, HTN, osteoarthritis and degenerative disc disease, intermittently taking prednisone as needed, recently also with development of a number of health problems, with severe back pain due to compression fracture of L5 noted on CT abdomen pelvis 08/30, also with incidentally noted bilateral nonobstructing kidney stones, with 50% burst fracture of L5 also seen on CT lumbar spine 09/15, with also severe central and bilateral lateral recess and moderate foraminal stenosis at L4-5 and displacement of L5 nerve roots, mild central and bilateral foraminal stenosis L3-4, mild central and subarticular recess stenosis L2-3, posterior retropulsion superior endplate of L2 extending into right lateral recess with mild stenosis. This was planned to be additionally managed by kyphoplasty due to persistent pain with inability to ambulate, however, this is now postponed after she was also noted to have swelling of left lower extremity on duplex venous evaluation 09/17 after swelling seen at her PCPs office, with finding of left femoral vein DVT. She was started on Eliquis on ER visit 09/17. She was also recently treated for urinary tract infection with ciprofloxacin, growing Proteus mirabilis on culture 09/03. She has also been putting ointment prescribed to her by her primary provider on her buttocks after she sustained mild zaldivar with blistering from a heating pad. She was brought in for evaluation to [facility] ER from where she was transferred here due to persistence of pain both lower back, as well as in her leg, as well as worsening of the degree of swelling. She reports she otherwise has not noted anything unusual. She does report having some mild hemoptysis which she says she has been getting with some occasional nosebleeds ever since she was started on oxygen therapy. She states that her brother also uses oxygen, and she would like to switch over the company to the one that he uses since after he tried using her oxygen he also developed nosebleeds and hemoptysis. Her blood pressure was noted soft in ER in [facility]. She has been taking metoprolol and Lasix at home. At [facility] she received fentanyl 50 mcg injection for pain. A dose of Eliquis. She denies any chest pain. She is not short of breath. She is saturating 100% on her usual 2 L. Blood pressure currently 104/52. She denies any dizziness or lightheadedness. She has a difficult time with pain management due to an allergy to a significant number of medications. She is accompanied by her daughter Andria Johnson. We are also joined by another daughter on conference call on the phone throughout the interview, asking multiple questions, expressing concerns regarding transfers between multiple hospitals and originally wanting to seek care in [place]. At this time they do not want to seek transfer and would like to continue care here, but may still consider it. Review of Systems Const: Reports: other (Currently nonambulatory due to back pain, left leg pain, swelling); Denies: fever(s), chills, body aches or malaise Eyes: Denies: change in vision or eye redness ENMT: Reports: other (Occasional epistaxis due to dry mucosa from oxygen); Denies: throat pain, oral sores or ear or mastoid pain Card: Denies: chest pain, pre-syncope or dyspnea on exertion Resp: Reports: hemoptysis; Denies: dyspnea, productive cough or change in phlegm color GI: Denies: abdominal pain, nausea, vomiting, diarrhea, constipation, hematochezia or melena : Denies: flank pain, urinary frequency or hematuria Musc: Reports: back pain; Denies: joint swelling or joint redness Skin/Breast: Reports: sores (Buttocks as above); Denies: rash or new lesions Neuro: Denies: headache(s), numbness in extremities, weakness in extremities, dizziness, confusion or seizure-like activity Endo: Denies: polyuria or polydipsia Orion/Lymph: Denies: easy bleeding or purpura All/Imm: Denies: urticaria, throat swelling or tongue swelling Medications/Allergies Home Medications Medication Instructions Recorded Confirmed Last Taken Type amoxicillin-pot clavulanate tab PO 09/19/20 Unknown History apixaban [Eliquis] 5 mg PO BID 09/19/20 09/19/20 Unknown History baclofen 10 mg PO DAILY 09/19/20 09/19/20 Unknown History ciprofloxacin HCl 500 mg PO BID 09/19/20 09/19/20 Unknown History diclofenac sodium [Voltaren] 2 g TOPICAL QID 09/19/20 09/19/20 Unknown History metoprolol tartrate 25 mg PO DAILY 09/19/20 09/19/20 Unknown History mupirocin 1 applic TOPICAL BID 09/19/20 09/19/20 Unknown History tramadol 50 mg PO Q6H PRN 09/19/20 09/19/20 Unknown History Allergies Allergy/AdvReac Type Severity Reaction Status Date / Time Sulfa (Sulfonamide Allergy Mild Unknown Verified 09/17/20 15:29 Antibiotics) codeine Allergy Unknown Verified 09/17/20 15:29 Iodinated Contrast Media Allergy ALGY-Hives Verified 09/17/20 15:29 PAIN MEDS Allergy Unknown Uncoded 09/17/20 15:29 PFSH Acute PFSH: Medical History (Updated 09/19/20 @ 13:33 by Mansoor Evans MD) Arthritis Chronic kidney disease Chronic steroid use COPD (chronic obstructive pulmonary disease) Degenerative disc disease Surgical History H/O arthroscopy H/O hand surgery H/O local excision of skin lesion H/O: hysterectomy History of ankle surgery Hx of cataract surgery Hx of cholecystectomy Family History (Updated 09/19/20 @ 13:13 by Mansoor Evans MD) Other Cancer Heart disease Hypertension Kidney disease Social History (Updated 09/19/20 @ 13:24 by Mansoor Evans MD) Smoking and tobacco status: former smoker Alcohol intake: never Substance/Drug Use: never Vitals/I&O/Wt Last Vital Signs Temp 97.6 F 09/19/20 12:00 Pulse 74 09/19/20 12:00 Resp 18 09/19/20 12:00 BP 104/52 09/19/20 12:00 Pulse Ox 99 09/19/20 12:00 09/18/20 09/19/20 09/19/20 22:59 06:59 14:59 Intake Total 120 / 120 Balance 120 / 120 Weight last 48 hrs Weight 93.497 kg Physical Exam Const: COMMON NORMALS: no acute distress and patient oriented x3 GENERAL APPEARANCE: cooperative NUTRITIONAL APPEARANCE: obese ORIENTATION/CONSCIOUSNESS: Yes awake HENMT: COMMON NORMALS: oropharynx normal Neck/C-Spine: COMMON NORMALS: no JVD Resp: COMMON NORMALS: normal respiratory effort and clear to auscultation bilaterally AUSCULTATION: clear to auscultation bilaterally Cardio: COMMON NORMALS: no JVD, regular rhythm, S1 normal heart sound present, S2 normal heart sound present and No murmurs present (Cardio) RHYTHM: regular rhythm HEART SOUNDS: S1 normal heart sound present and S2 normal heart sound present GI: COMMON NORMALS: Normal to inspection, nondistended, normoactive bowel sounds present, Soft to palpation and non-tender PALPATION: Yes Soft to palpation Extremity: COMMON NORMALS: no joint enlargement GENERAL: Yes edema (3+ LLE to hip) Neuro: COMMON NORMALS: patient oriented x3 and moves all extremities Skin: COMMON NORMALS: no rashes or lesions noted LESIONS: lesion noted (Several 1cm unroofed healing blisters after patches of skin zaldivar buttocks) Granulation tissue. Mild surrounding erythema. A&P Assessment and plan (1) Compression fracture: Severe pain, so far uncontrolled due to L5 compression fracture, also with underlying degenerative disc disease with central canal and neuroforaminal stenosis. Plan is for kyphoplasty at to be postponed due to new DVT. Pain control has been difficult due to also allergy to multiple medications. We have gone over different options. Fentanyl as initially requested is not safe to be administered on the medical floor here. Appears morphine, oxycodone, hydrocodone, and a number of other medications she also has allergies to. NSAIDs are not currently an option. She is allergic to acetaminophen. She would like to try Dilaudid for breakthrough pain. They are agreeable to try lidocaine patch. We will also have PT see her for assessment for TLSO brace. Status: Acute (2) Deep vein thrombosis of lower extremity: Concern whether there is extension of VTE given worsening edema in left lower extremity. Edema up to the hip. Discussed with her and family additional assessment treatment plan including repeating duplex to assess for proximal extension, continue anticoagulation. We discussed at this time is not clear that she has had a PE. She does not have chest pain. Her saturation is very good even on room air (chronically on 2 L oxygen for COPD), blood pressure remains stable. It is somewhat soft. She also does report hemoptysis, although this is chronic she says due to epistaxis from mucosal dryness from oxygen. Discussed with them possibility is that she does in fact already have a PE as well. For this she is currently on the right treatment with anticoagulation. For now we will transition her to Lovenox until we know everything else is stable. We briefly did discuss other therapeutic options including catheter guided thrombolysis, however, at this time the risks would outweigh the benefits. We will, however, monitor her condition closely, if needed arranging transfer to higher level care facility. They verbalized understanding and agreement. We will assess TTE. Hold Lasix. Hold metoprolol. Monitor blood pressures with pain medications. Status: Acute Qualifiers: Affected thrombotic vein of extremity: unspecified vein of extremity Chronicity: acute Laterality: left Qualified Code(s): I82.402 - Acute embolism and thrombosis of unspecified deep veins of left lower extremity (3) Swelling of left lower extremity: Elevate. This would benefit from compression therapy and she has had the leg wrapped in compression wrap several times already from what she and the family tell me. Discussed with them regarding chronic compression therapy. 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 At this time continue anticoagulation. SUJIT lockett. PT assessment for possible compression wrap. Has had dopplerable pulses marked DP Status: Acute (4) Degenerative disc disease: Noted on CT. Will likely require extensive rehabilitation to help improve level of functioning. Status: Acute (5) Chronic steroid use: Add PPI. Discussed with her concern regarding osteopenia, osteoporosis, pathological fracture. They understand she will need additional follow-up regarding bone mineral density testing, consideration of treatment of osteopenia or osteoporosis with concern for pathological fracture. Avoid prednisone if possible. Status: Acute (6) First degree burn of buttock: Continue dressing changes. Status: Acute (7) COPD (chronic obstructive pulmonary disease): On chronic 2 L oxygen. Uses albuterol as needed. Status: Acute Qualifiers: COPD type: COPD with acute exacerbation Qualified Code(s): J44.1 - Chronic obstructive pulmonary disease with (acute) exacerbation (8) JOSÉ MANUEL (acute kidney injury): Creatinine 1.39 noted that MSF. Discussed with her to avoid NSAIDs for now. Including Voltaren gel. Hold Lasix. Monitor renal function. Status: Acute (9) Urinary tract infection with hematuria: Proteus mirabilis. Was treated with ciprofloxacin. Status: Acute Qualifiers: Urinary tract infection type: acute cystitis Qualified Code(s): N30.01 - Acute cystitis with hematuria (10) Chronic kidney disease: Reported chronic kidney disease at [facility]. Currently noted acute kidney injury. Status: Acute Additional A&P Information Spinal stenosis Nonobstructive nephrolithiasis Attestations Medical Necessity Statement*: Admission of over 2 midnights ago needed for assessment of management of severe intractable pain with L5 compression fracture, in addition to chronic pain with spinal central canal and neuroforaminal stenosis, with difficulty of treatment of pain due to allergy to a number of medications, now also acute kidney injury, additional assessment of worsening swelling lower extremity concern regarding extension of VTE, assessment for PE, currently nonambulatory due to persistent symptoms. 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
--- NOTE | 2020-09-19 14:39 | XRR_ITS ---
PROCEDURE INFORMATION: Exam: XR Chest Exam date and time: 09/19/2020 2:40 PM Age: 85 years old Clinical indication: Other: Vte; Additional info: Vte, hemoptysis TECHNIQUE: Imaging protocol: XR of the chest. Views: 2 views. COMPARISON: CT chest con [id number] 08/26/2020 2:37 PM FINDINGS: Lungs: Hyperinflation. No CHF or focal consolidation. Pleural spaces: Unremarkable. No pleural effusion. No pneumothorax. Heart/Mediastinum: Unremarkable. No cardiomegaly. Bones/joints: No acute findings. XR/XR chest 2V* [id number] IMPRESSION: No acute findings.
[2020-09-19] MEDS: enoxaparin 100 mg/mL Syringe 90 MG SUBCUT (18:27)
--- NOTE | 2020-09-19 22:46 | PC.NURSE ---
Patient family called. Stated that her mother was in pain and that we were not taking care of the patient. That the patient has been on her call light and can get no one to respond. Patient call light was on for less than 5 minutes and when this nurse arrived at the room. The patient was complaining about how the SUJIT hose was hurting her right heel. This nurse removed the SUJIT hose and elevated the patients foot. Patient stated that the pain was almost gone and was grateful for nursing staff.
[2020-09-20] VITALS (8 sets, daily range): BP systolic 101–121; BP diastolic 59–69; PULSE 70–110; RESP 16–18; TEMP 36.7–36.9; O2SAT 94–99
--- NOTE | 2020-09-20 06:00 | USR_ITS ---
PROCEDURE INFORMATION: Exam: US Duplex Left Lower Extremity Veins, Limited Exam date and time: 09/19/2020 5:20 PM Age: 85 years old Clinical indication: Swelling (edema) of limb; Lower extremity, left; Additional info: Assess for clot extension TECHNIQUE: Imaging protocol: Real-time Duplex ultrasound of the Left Lower Extremity with 2-D diaz scale, color Doppler flow and spectral waveform analysis with image documentation. Limited exam focused on the left lower extremity veins. COMPARISON: US CV venous duplex [facility] [id number] 09/17/2020 5:58 PM FINDINGS: Evaluated veins include the left distal left external iliac, common femoral, proximal profunda femoral, proximal/mid/distal superficial femoral, popliteal, posterior tibial, peroneal, and proximal greater saphenous veins. As before, evidence for extensive occlusive deep venous thrombosis in the left lower extremity. Thrombus is seen from the distal left external iliac vein through the mid/distal calf veins. The appearance is similar to the prior exam. On the prior exam, the left distal iliac veins were not included, therefore uncertain if this is a new finding in the interval. The proximal left greater saphenous vein appears patent. Fluid collection in the left popliteal region, measuring about 40 x 10 x 25 mm. This likely represents a Amaro's/popliteal cyst, other etiologies not excluded. US/CV venous duplex [facility] [id number] IMPRESSION: 1. Extensive left lower extremity deep venous thrombosis, similar to the prior exam. Please see above details/discussion. 2. Suspected left popliteal/Amaro's cyst, details above.
--- NOTE | 2020-09-20 06:00 | USCV_ITS ---
Brady Nails Age: 85 Gender: F : 1935 Exam Date: 09/20/2020 06:32 Ordering Phys: Mansoor Evans MD Technologist: Kassandra Bell Exam Location: [facility] Indication: DVT, Hypotension BP: 107 / 69 HR: 83 Rhythm: Sinus Technical Quality: Fair MEASUREMENTS (Male / Female) Normal Values 2D ECHO LV Diastolic Diameter PLAX 3.9 cm 4.2 - 5.9 / 3.9 - 5.3 cm LV Systolic Diameter PLAX 2.2 cm LV Chamber Size 1.9 cm IVS Diastolic Thickness 1.3 cm 0.6 - 1.0 / 0.6 - 0.9 cm IVS Systolic Thickness 1.9 cm LVPW Diastolic Thickness 1.1 cm 0.6 - 1.0 / 0.6 - 0.9 cm LVPW Systolic Thickness 1.1 cm RV Chamber Size 1.8 cm LVOT Diameter 1.8 cm LV Ejection Fraction 2D Teich 74.8 % LV Ejection Fraction MOD 2C 52.6 % LV Ejection Fraction 2C AL 52.0 % LA Diameter 1.8 cm LA Width 2.3 cm LA Height 4.2 cm RA Width 2.6 cm RA Height 3.5 cm Aorta at Sinotubular Diameter 2.9 cm M-MODE LV Diastolic Diameter MM 4.8 cm 4.2 - 5.9 / 3.9 - 5.3 cm LV Systolic Diameter MM 3.0 cm LV Ejection Fraction MM Teich 68.2 % IVS Diastolic Thickness MM 1.3 cm 0.6 - 1.0 / 0.6 - 0.9 cm IVS Systolic Thickness MM 1.6 cm LVPW Diastolic Thickness MM 1.0 cm 0.6 - 1.0 / 0.6 - 0.9 cm LVPW Systolic Thickness MM 1.9 cm RV Diastolic Diameter MM 1.1 cm Aortic Annulus Diameter 3.3 cm LA Ao Ratio MM 0.6 DOPPLER AV Peak Velocity 155.0 cm/s LVOT Peak Velocity 132.0 cm/s AV Area Cont Eq vti 2.4 cm squared AV Area Cont Eq pk 2.1 cm squared MV Area PHT 2.9 cm squared Mitral E to A Ratio 0.7 MV E' Velocity 44.5 cm/s Mitral E to MV E' Ratio 8.7 Mitral E to LV E' Lateral Ratio 9.2 Mitral E to LV E' Septal Ratio 8.3 TR Peak Velocity 266.0 cm/s TR Peak Gradient 28.3 mmHg TV Peak E Velocity 67.0 cm/s Right Atrial Pressure 3.0 mmHg Pulmonary Artery Systolic Pressu 31.3 mmHg PV Peak Velocity 119.0 cm/s RV Acceleration Time 0.1 s RV Ejection Time 0.3 s RV AcT/ET 0.3 FINDINGS Left Ventricle Normal left ventricular size, systolic function and increased wall thickness, with no regional wall motion abnormalities. Left ventricular ejection fraction is estimated at 65-70 %. Grade I diastolic dysfunction (abnormal relaxation filling pattern), normal to mildly elevated filling pressures. Right Ventricle Normal right ventricular size and systolic function. Right ventricular systolic pressure 33 mmHg. Right Atrium Normal right atrial size. Right atrial pressure estimated at 3 mmHg. Left Atrium Normal left atrial size. Mitral Valve Structurally normal mitral valve. No mitral valve stenosis. Trace mitral valve regurgitation. Aortic Valve Aortic valve not well visualized. No aortic valve stenosis. No aortic valve regurgitation. Tricuspid Valve Structurally normal tricuspid valve. Mild tricuspid valve regurgitation. Pulmonic Valve No pulmonary valve stenosis. Trace pulmonary valve regurgitation. Pericardium No pericardial effusion. Prominent epicardial fat. Aorta Normal-sized inferior vena cava. CONCLUSIONS 1. Normal left ventricular size, systolic function and increased wall thickness, with no regional wall motion abnormalities. Left ventricular ejection fraction is estimated at 65-70 %. Grade I diastolic dysfunction (abnormal relaxation filling pattern), normal to mildly elevated filling pressures. 2. Normal right ventricular size and systolic function. 3. Pulmonary artery pressure estimated at 33 mmHg. 4. No prior similar studies to compare. Natalie Rea MD (Electronically Signed) Final Date: 20 September 2020 18:37 S
[2020-09-20 06:07] LABS: Basophils # 0.1 10^3/uL (0.0-0.1); Basophils % 0.8 %; Eosinophils # 0.1 10^3/uL (0.0-0.8); Eosinophils % 1.7 %; Hematocrit 38.2 % (37.0-47.0); Hemoglobin 11.6 g/dL (11.5-15.3); Lymphocytes # 1.4 10^3/uL (0.8-4.8); Lymphocytes % 21.5 %; Mean Corpuscular HGB Conc 30.4 g/dL (30.0-36.0); Mean Corpuscular Hemoglobin 29.7 pg (28.0-34.0); Mean Corpuscular Volume 97.9 fL (81-99); Mean Platelet Volume 9.6 fL (7.4-10.4); Monocytes # 0.5 10^3/uL (0.2-0.9); Monocytes % 7.2 %; Neutrophils # 4.23 10^3/uL (1.8-7.7); Neutrophils % 64.8 %; Nucleated Red Blood Cells % 0 %; Platelet Count 177 10^3/cmm (130-400); Red Cell Distribution Width 12.8 % (12.1-15.1); White Blood Count 6.5 10^3/uL (4.0-10.0)
[2020-09-20] MEDS: enoxaparin 100 mg/mL Syringe 90 MG SUBCUT ×2 (06:19→18:43)
[2020-09-20 06:25] LABS: Alanine Aminotransferase 12 U/L (0-33); Albumin Level 2.8 g/dL (3.5-5.2); Alkaline Phosphatase 96 IU/L (35-105); Aspartate Amino Transferase 17 U/L (0-32); Blood Urea Nitrogen 22 mg/dL (8-23); Calcium 7.9 mg/dL (8.5-10.5); Carbon Dioxide 30 mmol/L (22-29); Chloride 103 mmol/L (98-107); Globulin 2.4 g/dL (1.3-4.6); Glucose 90 mg/dL (65-115); Osmolality Calculated 293 mOsm/kg (285-295); Sodium 140 mmol/L (136-145); Total Bilirubin 0.5 mg/dL (0.15-1.2); Total Protein 5.2 g/dL (6.6-8.7)
[2020-09-20] MEDS: potassium chloride ER 20 mEq Tablet PO (10:25)
[2020-09-20] MEDS: baclofen 10 mg Tablet PO (10:26)
[2020-09-20] MEDS: pantoprazole DR 40 mg Tablet PO (10:26)
[2020-09-20] MEDS: lidocaine 5% Patch 1 PATCH TOPICAL (10:28)
--- NOTE | 2020-09-20 13:43 | PC.NUTR ---
NUTRITION WEIGHT ASSESSMENT: Ht. 60 inches. Wt. 214.6 pounds. BMI of 41.9 kg/m2 indicates Morbid Obesity.
--- NOTE | 2020-09-20 18:16 | PM.PN ---
Subjective Subjective: Interval history: Reports today she is feeling better at rest. Pain is getting under better control. Lidocaine appears to be working. She seems to also be responding to Dilaudid for breakthrough pain. Breathing appears comfortable without oxygen on. Denies chest pain or pressure. Swelling in left lower extremity persists. She is elevating it. She is working with physical therapy for better fitment of the myMed[employer] brace. Vitals/I&O/Wt Last Vital Signs Temp 98.2 F 09/20/20 15:45 Pulse 79 09/20/20 15:45 Resp 18 09/20/20 15:45 BP 121/62 09/20/20 15:45 Pulse Ox 99 09/20/20 15:45 09/20/20 09/20/20 09/20/20 06:59 14:59 22:59 Intake Total 240 / 240 Balance 240 / 240 Weight last 48 hrs Weight 97.341 kg Weight 93.497 kg Physical Exam Const: COMMON NORMALS: no acute distress and patient oriented x3 GENERAL APPEARANCE: cooperative NUTRITIONAL APPEARANCE: obese ORIENTATION/CONSCIOUSNESS: Yes awake HENMT: COMMON NORMALS: oropharynx normal Neck/C-Spine: COMMON NORMALS: no JVD Resp: COMMON NORMALS: normal respiratory effort and clear to auscultation bilaterally AUSCULTATION: clear to auscultation bilaterally Cardio: COMMON NORMALS: no JVD, regular rhythm, S1 normal heart sound present, S2 normal heart sound present and No murmurs present (Cardio) RHYTHM: regular rhythm HEART SOUNDS: S1 normal heart sound present and S2 normal heart sound present GI: COMMON NORMALS: Normal to inspection, nondistended, normoactive bowel sounds present, Soft to palpation and non-tender PALPATION: Yes Soft to palpation Extremity: COMMON NORMALS: no joint enlargement GENERAL: Yes edema (3+ LLE to hip) Neuro: COMMON NORMALS: patient oriented x3 and moves all extremities Skin: COMMON NORMALS: no rashes or lesions noted GENERAL SKIN EXAM: no rashes or lesions noted LESIONS: lesion noted (Several 1cm unroofed healing blisters after patches of skin zaldivar buttocks) Data : 09/20/20 05:59 09/20/20 05:59 A&P Assessment and plan (1) Deep vein thrombosis of lower extremity: Possible expansion of proximal VTE despite anticoagulation with Eliquis. Left lower extremity duplex repeated. VTE reaching external iliac veins. This was not imaged on previous ultrasound, so unable to determine whether these were present at that time. Otherwise VTE appears similar. Discussed with CT, we do not have a reliable protocol for CT venography. Will additionally work-up at this time worse duplex of inferior vena cava, request attempted imaging of common femorals as well for any presence of clot burden to assess how proximally the VTE extends. With regards to possibility of presence of PE as discussed with her and her family cannot exclude this possibility. VQ scan obtained, intermediate probability. At this time blood pressure is stable. Oxygenation is good even on room air (at baseline normally on 2 L due to COPD). No tachycardia. Hemodynamically appears stable. Doubt that there is an extensive PE if present. For now would follow-up TTE results, assess right ventricle, and based on that and further hemodynamics and oxygenation consider whether additional risk of CT angiogram of the chest is worth pursuing. Lasix, metoprolol on hold for now. Continue elevating left lower extremity. She could not tolerate SUJIT hose. Nursing has been measuring circumference, and with elevation appears to be gradually decreasing in size, although swelling is quite extensive. If may tolerate, consideration may be given to compression therapy. Revisit regarding monitoring for post phlebitis syndrome on discharge. Status: Acute Qualifiers: Affected thrombotic vein of extremity: unspecified vein of extremity Chronicity: acute Laterality: left Qualified Code(s): I82.402 - Acute embolism and thrombosis of unspecified deep veins of left lower extremity (2) Compression fracture: Pain appears to be somewhat improving, at least at rest. TLSO brace is being fitted as well. Continue lidocaine patch, Dilaudid as needed for breakthrough pain. Continue management of VTE/anticoagulation. Referral for kyphoplasty has so far been postponed. Continue mobilization with therapy. Use walker. Pain control has been difficult due to also allergy to multiple medications. Status: Acute (3) Swelling of left lower extremity: As above. Also noted incidental Amaro's cyst left popliteal fossa. Status: Acute (4) Degenerative disc disease: Noted on CT. continue mobilization. Would benefit from rehabilitation. Status: Acute (5) Chronic steroid use: PPI added. Discussed with her concern regarding osteopenia, osteoporosis, pathological fracture. She and family understand she will need additional follow-up regarding bone mineral density testing, consideration of treatment of osteopenia or osteoporosis with concern for pathological fracture. Avoid prednisone if possible. Status: Acute (6) First degree burn of buttock: Continue dressing changes. Status: Acute (7) COPD (chronic obstructive pulmonary disease): She is actually doing well on room air. Likely does not need oxygen chronically, but would assess home O2 evaluation when ready for discharge. On chronic 2 L oxygen previously. Uses albuterol as needed. Status: Acute Qualifiers: COPD type: COPD with acute exacerbation Qualified Code(s): J44.1 - Chronic obstructive pulmonary disease with (acute) exacerbation (8) JOSÉ MANUEL (acute kidney injury): Resolved. Creatinine 1.39 noted that [facility] [place] Discussed with her to avoid NSAIDs for now. Including Voltaren gel. Hold Lasix. Monitor renal function. Status: Acute (9) Urinary tract infection with hematuria: Proteus mirabilis. Was treated with ciprofloxacin. Status: Acute Qualifiers: Urinary tract infection type: acute cystitis Qualified Code(s): N30.01 - Acute cystitis with hematuria (10) Chronic kidney disease: Reported chronic kidney disease at [facility] [place] Currently noted acute kidney injury. Status: Acute Additional A&P Information Hypokalemia: Replaced Spinal stenosis Nonobstructive nephrolithiasis Attestations Medical Necessity Statement*: Continue admission for assessment of possible expansion of proximal VTE despite anticoagulation with Eliquis, optimization of pain control due to compression fracture nonresponsive to outpatient treatment, unable to undergo kyphoplasty as planned, pain and severe swelling in left lower extremity limiting mobilization. Coding Level of Care Code Acute [employer] for [facility] Fwd Diagnoses Deep vein thrombosis of lower extremity I82.402 Affected thrombotic vein of extremity: unspecified vein of extremity Chronicity: acute Laterality: left Compression fracture Swelling of left lower extremity M79.89 Degenerative disc disease Chronic steroid use First degree burn of buttock T21.15XA COPD (chronic obstructive pulmonary disease) J44.1 COPD type: COPD with acute exacerbation JOSÉ MANUEL (acute kidney injury) N17.9 Urinary tract infection with hematuria N30.01 Urinary tract infection type: acute cystitis Chronic kidney disease N18.9
[2020-09-21] VITALS (8 sets, daily range): BP systolic 88–110; BP diastolic 48–69; PULSE 89–110; RESP 16–18; TEMP 36.7–37.1; O2SAT 93–98
[2020-09-21 05:50] LABS: Basophils % 0.7 %; Eosinophils # 0.1 10^3/uL (0.0-0.8); Eosinophils % 1.7 %; Hematocrit 34.6 % (37.0-47.0); Hemoglobin 10.7 g/dL (11.5-15.3); Lymphocytes # 1.1 10^3/uL (0.8-4.8); Lymphocytes % 18.4 %; Mean Corpuscular HGB Conc 30.9 g/dL (30.0-36.0); Mean Corpuscular Hemoglobin 30.1 pg (28.0-34.0); Mean Corpuscular Volume 97.2 fL (81-99); Monocytes # 0.5 10^3/uL (0.2-0.9); Monocytes % 8.3 %; Neutrophils # 4.05 10^3/uL (1.8-7.7); Neutrophils % 68.5 %; Nucleated Red Blood Cells % 0 %; Platelet Count 195 10^3/cmm (130-400); Red Blood Count 3.56 10^6/uL (4.1-5.3); Red Cell Distribution Width 12.7 % (12.1-15.1); White Blood Count 5.9 10^3/uL (4.0-10.0)
[2020-09-21 06:13] LABS: Alanine Aminotransferase 11 U/L (0-33); Albumin Level 2.8 g/dL (3.5-5.2); Alkaline Phosphatase 101 IU/L (35-105); Anion Gap 12.2 (5-19); Aspartate Amino Transferase 13 U/L (0-32); Blood Urea Nitrogen 17 mg/dL (8-23); Calcium 7.5 mg/dL (8.5-10.5); Carbon Dioxide 28 mmol/L (22-29); Chloride 105 mmol/L (98-107); Globulin 2.2 g/dL (1.3-4.6); Glucose 95 mg/dL (65-115); Osmolality Calculated 295 mOsm/kg (285-295); Potassium 3.2 mmol/L (3.5-5.1); Sodium 142 mmol/L (136-145); Total Bilirubin 0.4 mg/dL (0.15-1.2)
[2020-09-21] MEDS: baclofen 10 mg Tablet PO (09:29)
[2020-09-21] MEDS: pantoprazole DR 40 mg Tablet PO (09:29)
[2020-09-21] MEDS: enoxaparin 100 mg/mL Syringe 90 MG SUBCUT ×2 (09:29→18:32)
--- NOTE | 2020-09-21 15:46 | P.PN_ITS ---
Subjective Subjective: Interval history: No acute events overnight. Hospital course and labs appreciated. On examination patient uncomfortable in bed. States her pain is a lot better. Concerned about swelling in her left leg. Denies any nausea, vomiting, headache. Discussed in detail regarding finding on IVC duplex study. Discussed in detail regarding treatment plan with anticoagulation and need of an IVC filter given extensive DVT in high risk of embolization causing pulmonary embolism. Patient is agreeable for IVC filter. Vitals/I&O/Wt Last Vital Signs Temp 98.1 F 09/21/20 12:16 Pulse 92 09/21/20 12:16 Resp 18 09/21/20 12:16 BP 108/65 09/21/20 12:16 Pulse Ox 98 09/21/20 12:16 09/21/20 09/21/20 09/21/20 06:59 14:59 22:59 Intake Total 360 / 360 Output Total 400 / 400 425 / 425 Balance -400 / 80 -65 / -65 Weight last 48 hrs Weight 96.252 kg Weight 97.341 kg Physical Exam Const: COMMON NORMALS: no acute distress and patient oriented x3 GENERAL APPEARANCE: cooperative NUTRITIONAL APPEARANCE: obese ORIENTATION/CONSCIOUSNESS: Yes awake HENMT: COMMON NORMALS: oropharynx normal Neck/C-Spine: COMMON NORMALS: no JVD Resp: COMMON NORMALS: normal respiratory effort and clear to auscultation bilaterally AUSCULTATION: clear to auscultation bilaterally Cardio: COMMON NORMALS: no JVD, regular rhythm, S1 normal heart sound present, S2 normal heart sound present and No murmurs present (Cardio) RHYTHM: regular rhythm HEART SOUNDS: S1 normal heart sound present and S2 normal heart sound present GI: COMMON NORMALS: Normal to inspection, nondistended, normoactive bowel sounds present, Soft to palpation and non-tender PALPATION: Yes Soft to palpation Extremity: COMMON NORMALS: no joint enlargement GENERAL: Yes edema (3+ LLE to hip) Neuro: COMMON NORMALS: patient oriented x3 and moves all extremities Skin: COMMON NORMALS: no rashes or lesions noted GENERAL SKIN EXAM: no rashes or lesions noted LESIONS: lesion noted (Several 1cm unroofed healing blisters after patches of skin zaldivar buttocks) Data : 09/21/20 05:08 09/21/20 05:08 A&P Assessment and plan (1) Deep vein thrombosis of lower extremity: Possible extension of proximal VTE despite anticoagulation with Eliquis. Left lower limb DVT extending all the way up to mid IVC and left common iliac v ein though renal veins are patent. We will discuss with cardiology and they recommend IVC filter. Continue full dose Lovenox for now. Discussed treatment plan in detail with patient and she is agreeable for the same. N.p.o. after midnight. With regards to possibility of presence of PE as discussed with her and her family cannot exclude this possibility. VQ scan obtained, intermediate probability. At this time blood pressure is stable. Oxygenation is good even on room air (at baseline normally on 2 L due to COPD). No tachycardia. Hemodynamically appears stable. Doubt that there is an extensive PE if present. For now would follow-up TTE results, assess right ventricle, and based on that and further hemodynamics and oxygenation consider whether additional risk of CT angiogram of the chest is worth pursuing. Continue elevating left lower extremity. She could not tolerate SUJIT hose. Nursing has been measuring circumference, and with elevation appears to be gradually decreasing in size, although swelling is quite extensive. If may tolerate, consideration may be given to compression therapy. Revisit regarding monitoring for post phlebitis syndrome on discharge. Status: Acute Qualifiers: Affected thrombotic vein of extremity: unspecified vein of extremity Chronicity: acute Laterality: left Qualified Code(s): I82.402 - Acute embolism and thrombosis of unspecified deep veins of left lower extremity (2) Compression fracture: Pain appears to be somewhat improving, at least at rest. TLSO brace is being fitted as well. Continue lidocaine patch, Dilaudid as needed for breakthrough pain. Continue management of VTE/anticoagulation. Case discussed with Dr. Jeong. He states for now the plan would be to do conservative treatment given the extensive IVC DVT and need of anticoagulation for now. Continue mobilization with therapy. Use walker. Pain control has been difficult due to also allergy to multiple medications. Status: Acute (3) Swelling of left lower extremity: As above. Also noted incidental Amaro's cyst left popliteal fossa. Status: Acute (4) Degenerative disc disease: Noted on CT. continue mobilization. Would benefit from rehabilitation. Status: Acute (5) Chronic steroid use: PPI added. Discussed with her concern regarding osteopenia, osteoporosis, pathological fracture. She and family understand she will need additional follow-up regarding bone mineral density testing, consideration of treatment of osteopenia or osteoporosis with concern for pathological fracture. Avoid prednisone if possible. Check vitamin D and calcium levels Status: Acute (6) First degree burn of buttock: Continue dressing changes. Wound care consult. Status: Acute (7) COPD (chronic obstructive pulmonary disease): She is actually doing well on room air. Likely does not need oxygen chronically, but would assess home O2 evaluation when ready for discharge. On chronic 2 L oxygen previously. Uses albuterol as needed. Status: Acute Qualifiers: COPD type: COPD with acute exacerbation Qualified Code(s): J44.1 - Chronic obstructive pulmonary disease with (acute) exacerbation (8) JOSÉ MANUEL (acute kidney injury): Resolved. Creatinine 1.39 noted that [facility] [place]. Discussed with her to avoid NSAIDs for now. Including Voltaren gel. Hold Lasix. Monitor renal function. Status: Acute (9) Urinary tract infection with hematuria: Proteus mirabilis. Was treated with ciprofloxacin. Status: Acute Qualifiers: Urinary tract infection type: acute cystitis Qualified Code(s): N30.01 - Acute cystitis with hematuria (10) Chronic kidney disease: Reported chronic kidney disease at [facility] [place]. Currently noted acute kidney injury. Status: Acute Additional A&P Information Hypokalemia: Replaced Spinal stenosis Nonobstructive nephrolithiasis Full code. Cardiac diet, n.p.o. after midnight. Full dose Lovenox will also help with DVT prophylaxis. Patient's care plan discussed in detail with patient at bedside. She is agreeable for IVC filter for now. Tried calling patient's daughter on for multiple times but unable to go through and have left a message. Attestations Medical Necessity Statement*: Patient requires further hospitalization for management of extensive IVC DVT. Time Spent in Patient Care: Greater than 35 minutes (>than 50% of time spent in counselling and/or direct pt care on unit) . Coding Level of Care Code Acute [employer] for [facility] Diagnoses Deep vein thrombosis of lower extremity I82.402 Affected thrombotic vein of extremity: unspecified vein of extremity Chronicity: acute Laterality: left Compression fracture Swelling of left lower extremity M79.89 Degenerative disc disease Chronic steroid use First degree burn of buttock T21.15XA COPD (chronic obstructive pulmonary disease) J44.1 COPD type: COPD with acute exacerbation JOSÉ MANUEL (acute kidney injury) N17.9 Urinary tract infection with hematuria N30.01 Urinary tract infection type: acute cystitis Chronic kidney disease N18.9
[2020-09-21 17:03] LABS: 25 Hydroxy Vitamin D 11 ng/mL (30-100)
--- NOTE | 2020-09-21 17:17 | USCV_ITS ---
Jesu Kadietino Age: 85 Gender: F : 1935 Exam Date: 09/21/2020 05:56 Ordering Phys: Mansoor Evans MD Technologist: Sarah Newman Exam Location: [facility] [place] Indication: EVAL FOR IVC AND ILIAC VEINS FOR DVT. KNOWN DVT IN LLE AND LT CIV Findings CLOT SEEN FROM IVC MID AND DIST INTO LT CIV. IVC PROX, RT CIV AND BILAT RENAL VEINS APPEAR PATENT Conclusions Thrombus Mid and distal IVC into Left common iliac vein Bilateral Renal veins are patent. Robert Lara MD (Electronically Signed) Final Date: 21 September 2020 09:44 S
--- NOTE | 2020-09-21 17:44 | PM.CONSULT ---
Providers/Reason For Consult Consulting Physican/Specialty*: Andrea Whitley MD Reason for Consult*: Evaluation for wound care Attending Physician: Andrea Whitley MD Primary Care Provider: GERARDO Herron History of Present Illness History of Present Illness Brady Nails is a 85 year old female who has been dealing with severe back pain secondary to compression fracture of L5 and foraminal stenosis involving L2, L3 and L4. Patient is scheduled for kyphoplasty which had to be canceled due to development of DVT requiring Eliquis. Patient had been discharged home last week and apparently she applied heating pads to her lower back due to severe pain and subsequently did not realize that she had burned herself. Review of Systems General: Reports: 10 or more systems reviewed and unremarkable except in HPI and below Meds/Allergies Home Medications and Allergies Home Medications Medication Instructions Recorded Confirmed Last Taken Type amoxicillin-pot clavulanate 1 tab PO BID 09/19/20 09/20/20 Unknown History apixaban [Eliquis] 5 mg PO BID 09/19/20 09/19/20 Unknown History baclofen 10 mg PO DAILY 09/19/20 09/19/20 Unknown History ciprofloxacin HCl 500 mg PO BID 09/19/20 09/19/20 Unknown History diclofenac sodium [Voltaren] 2 g TOPICAL QID 09/19/20 09/19/20 Unknown History metoprolol tartrate 25 mg PO DAILY 09/19/20 09/19/20 Unknown History mupirocin 1 applic TOPICAL BID 09/19/20 09/19/20 Unknown History tramadol 50 mg PO Q6H PRN 09/19/20 09/19/20 Unknown History Allergies Allergy/AdvReac Type Severity Reaction Status Date / Time Sulfa (Sulfonamide Allergy Mild Unknown Verified 09/17/20 15:29 Antibiotics) codeine Allergy Unknown Verified 09/17/20 15:29 Iodinated Contrast Media Allergy ALGY-Hives Verified 09/17/20 15:29 PAIN MEDS Allergy Unknown Uncoded 09/17/20 15:29 Current Medications Current Medications Generic Name Dose Route Start Last Admin Trade Name Freq PRN Reason Stop Dose Admin Baclofen 10 mg 09/20/20 09:00 09/21/20 09:29 Baclofen 10 Mg Tablet PO 10 mg DAILY JAMES Administration Enoxaparin Sodium 90 mg 09/19/20 19:00 09/21/20 09:29 Enoxaparin 100 Mg/Ml Syringe 1 mg/kg (90 mg) 90 mg SUBCUT Administration Q12H [facility] Lidocaine 1 patch 09/19/20 21:00 09/21/20 09:29 Lidocaine 5% Patch TOPICAL Not Given [id number] [facility] Pantoprazole Sodium 40 mg 09/20/20 09:00 09/21/20 09:[address] 40 Mg Tablet PO 40 mg DAILY JAMES Administration PFSH Acute PFSH: Medical History Arthritis Chronic kidney disease Chronic steroid use COPD (chronic obstructive pulmonary disease) Degenerative disc disease Surgical History H/O arthroscopy H/O hand surgery H/O local excision of skin lesion H/O: hysterectomy History of ankle surgery Hx of cataract surgery Hx of cholecystectomy Family History Other Cancer Heart disease Hypertension Kidney disease Social History Smoking and tobacco status: former smoker Alcohol intake: never Substance/Drug Use: never Vitals/I&O/Wt Last Vital Signs Temp 98.6 F 09/21/20 15:44 Pulse 89 09/21/20 15:44 Resp 18 09/21/20 15:44 BP 110/60 09/21/20 15:44 Pulse Ox 97 09/21/20 15:44 09/21/20 09/21/20 09/21/20 06:59 14:59 22:59 Intake Total 360 / 360 Output Total 400 / 400 425 / 425 Balance -400 / 80 -65 / -65 Weight last 48 hrs Weight 212 lb 3.2 oz Weight 214 lb 9.6 oz Physical Exam Narrative: EXAM NARRATIVE: HEENT: Normocephalic Eye: Sclera /conjunctiva normal Respiratory and chest: Bilateral clear breath sounds on auscultation Cardiovascular: Normal S1 and S2 heart sounds Abdomen: Soft to palpation Neurological: Oriented to place person and time Skin: Intact, partial thickness and superficial zaldivar involving less than 1% on the gluteal areas left greater than right A&P Assessment and plan (1) First degree burn of buttock: 85-year-old female with history of chronic pain who developed superficial and partial-thickness burn of the gluteal area secondary to heating pad. No evidence of significant cellulitis. Recommend wound care with Silvadene cream twice daily and cover with ABDs No surgical debridement required at this point. Status: Acute Coding Level of Care Code Acute [employer] for [facility] Fwd Diagnoses First degree burn of buttock T21.15XA
[2020-09-21] MEDS: silver sulfadiazine cream 1% 50 gm 1 APPLIC TOPICAL (18:31)
[2020-09-21 18:34] LABS: Calcium 8.2 mg/dL (8.5-10.5)
[2020-09-21] MEDS: TRAMadol 50 mg Tablet PO (18:54)
--- NOTE | 2020-09-21 20:06 | PM.CONSULT ---
Providers/Reason For Consult Consulting Physican/Specialty*: Cardiology Reason for Consult*: Extensive DVT extending into inferior vena cava with high suspicion of thromboembolic phenomena Requesting Physcian: Dr. Akins Attending Physician: Andrea Whitley MD Primary Care Provider: GERARDO Herron History of Present Illness History of Present Illness Brady Nails is a 85 year old female admitted with compression fracture of the back, UTI was noted to have swelling of extremity for which further investigation was performed which confirmed presence of deep venous thrombosis extending from left external iliac involving mid and distal inferior vena cava. Patient was switched to Lovenox. I was consulted for possible placement of IVC filter as DVT is very high risk for pulmonary embolic phenomena. I have detailed discussion with the patient and family by bedside. Patient and family has been explained all risk benefit and alternative for the procedure. They understand risk of pulmonary embolism during deployment and retrieval of IVC filter, they are aware of risk for laceration, clogging and embolization of IVC filter. They understand the risk of major minor bleed and laceration of IVC requiring surgery and worse case scenario . Patient and family would like to think about it. They understand the risk of embolization leading to pulmonary embolism and in case IVC filter is delayed. They told me that they are going to decide by tomorrow. I will schedule patient for a 30 case tomorrow in case the consent for it Meds/Allergies Home Medications and Allergies Home Medications Medication Instructions Recorded Confirmed Last Taken Type amoxicillin-pot clavulanate 1 tab PO BID 09/19/20 09/20/20 Unknown History apixaban [Eliquis] 5 mg PO BID 09/19/20 09/19/20 Unknown History baclofen 10 mg PO DAILY 09/19/20 09/19/20 Unknown History ciprofloxacin HCl 500 mg PO BID 09/19/20 09/19/20 Unknown History diclofenac sodium [Voltaren] 2 g TOPICAL QID 09/19/20 09/19/20 Unknown History metoprolol tartrate 25 mg PO DAILY 09/19/20 09/19/20 Unknown History mupirocin 1 applic TOPICAL BID 09/19/20 09/19/20 Unknown History tramadol 50 mg PO Q6H PRN 09/19/20 09/19/20 Unknown History Allergies Allergy/AdvReac Type Severity Reaction Status Date / Time Sulfa (Sulfonamide Allergy Mild Unknown Verified 09/17/20 15:29 Antibiotics) codeine Allergy Unknown Verified 09/17/20 15:29 Iodinated Contrast Media Allergy ALGY-Hives Verified 09/17/20 15:29 PAIN MEDS Allergy Unknown Uncoded 09/17/20 15:29 Current Medications Current Medications Generic Name Dose Route Start Last Admin Trade Name Freq PRN Reason Stop Dose Admin Baclofen 10 mg 09/20/20 09:00 09/21/20 09:29 Baclofen 10 Mg Tablet PO 10 mg DAILY JAMES Administration Enoxaparin Sodium 90 mg 09/19/20 19:00 09/21/20 18:32 Enoxaparin 100 Mg/Ml Syringe 1 mg/kg (90 mg) 90 mg SUBCUT Administration Q12H [facility] Lidocaine 1 patch 09/19/20 21:00 09/21/20 09:29 Lidocaine 5% Patch TOPICAL Not Given [id number] [facility] Pantoprazole Sodium 40 mg 09/20/20 09:00 09/21/20 09:[address] 40 Mg Tablet PO 40 mg DAILY JAMES Administration Silver Sulfadiazine 1 applic 09/21/20 18:00 09/21/20 18:31 Silver Sulfadiazine Cream 1% 50 Gm TOPICAL 1 applic BID JAMES Administration Tramadol HCl 50 mg 09/21/20 15:48 09/21/20 18:54 Tramadol 50 Mg Tablet PO 50 mg Q6H PRN Administration pain PFSH Acute PFSH: Medical History Arthritis Chronic kidney disease Chronic steroid use COPD (chronic obstructive pulmonary disease) Degenerative disc disease Surgical History H/O arthroscopy H/O hand surgery H/O local excision of skin lesion H/O: hysterectomy History of ankle surgery Hx of cataract surgery Hx of cholecystectomy Family History Other Cancer Heart disease Hypertension Kidney disease Social History Smoking and tobacco status: former smoker Alcohol intake: never Substance/Drug Use: never Vitals/I&O/Wt Last Vital Signs Temp 98.3 F 09/21/20 19:53 Pulse 103 H 09/21/20 19:53 Resp 18 09/21/20 19:53 BP 98/60 09/21/20 19:53 Pulse Ox 96 09/21/20 19:53 09/21/20 09/21/20 09/21/20 06:59 14:59 22:59 Intake Total 360 / 360 120 / 480 Output Total 400 / 400 425 / 425 200 / 625 Balance -400 / 80 -65 / -65 -80 / -145 Weight last 48 hrs Weight 212 lb 3.2 oz Weight 214 lb 9.6 oz Physical Exam Narrative: EXAM NARRATIVE: GENERAL: Patient is alert, awake and oriented x3. NECK: No jugular vein distension. HEENT: No cyanosis. No icterus. No pallor. HEART: Regular S1 and S2. No murmur, rub or gallop. LUNGS: Clear to auscultate bilaterally. ABDOMEN: Soft, nontender and nondistended. Positive bowel sounds. No guarding, rebound or tenderness. CENTRAL NERVOUS SYSTEM: Grossly nonfocal. EXTREMITIES: Lower extremities with 1+ edema bilaterally. A&P Assessment and plan (1) Deep vein thrombosis of lower extremity: Patient had extensive DVT extending into IVC mid to distal segment which is very high risk for thromboembolic phenomena leading to massive pulmonary embolism leading to arrhythmia pulmonary hypertension in worse case scenario . I agree with placement of retrievable IVC filter for 2 to 3 months along with anticoagulation. Once thrombus become more organized and resolved in the IVC we may can remove it. Patient has been explained all risk benefit and alternative for the procedure. Patient and family would like to think about it and will let us know in the morning. Status: Acute Qualifiers: Affected thrombotic vein of extremity: unspecified vein of extremity Chronicity: acute Laterality: left Qualified Code(s): I82.402 - Acute embolism and thrombosis of unspecified deep veins of left lower extremity (2) COPD (chronic obstructive pulmonary disease): Continue current regimen Status: Acute Qualifiers: COPD type: COPD with acute exacerbation Qualified Code(s): J44.1 - Chronic obstructive pulmonary disease with (acute) exacerbation (3) Chronic kidney disease: Continue to monitor Status: Acute Qualifiers: Chronic kidney disease stage: stage 2 (mild) Qualified Code(s): N18.2 - Chronic kidney disease, stage 2 (mild) Consult Attestations Medical Necessity Statement: Patient require continuation hospitalization for above defined care. Coding Level of Care Code New Pt Acute Bed Machine Operator for Chg Fwd Patient Type New History Detailed Exam Detailed Medical Decision Making Moderate Complexity Diagnoses Deep vein thrombosis of lower extremity I82.402 Affected thrombotic vein of extremity: unspecified vein of extremity Chronicity: acute Laterality: left COPD (chronic obstructive pulmonary disease) J44.1 COPD type: COPD with acute exacerbation Chronic kidney disease N18.2 Chronic kidney disease stage: stage 2 (mild)
[2020-09-21] MEDS: lidocaine 5% Patch 1 PATCH TOPICAL (20:20)
[2020-09-22] VITALS (14 sets, daily range): BP systolic 91–117; BP diastolic 47–67; PULSE 89–106; RESP 16–18; TEMP 36.7–37; O2SAT 93–97
[2020-09-22 02:18] LABS: Basophils # 0.1 10^3/uL (0.0-0.1); Eosinophils # 0.2 10^3/uL (0.0-0.8); Eosinophils % 3.1 %; Hematocrit 33.3 % (37.0-47.0); Hemoglobin 10.3 g/dL (11.5-15.3); Lymphocytes # 1.3 10^3/uL (0.8-4.8); Lymphocytes % 24.7 %; Mean Corpuscular HGB Conc 30.9 g/dL (30.0-36.0); Mean Corpuscular Hemoglobin 30.6 pg (28.0-34.0); Mean Corpuscular Volume 98.8 fL (81-99); Mean Platelet Volume 9.6 fL (7.4-10.4); Monocytes # 0.5 10^3/uL (0.2-0.9); Monocytes % 10.4 %; Neutrophils # 2.97 10^3/uL (1.8-7.7); Neutrophils % 58.3 %; Nucleated Red Blood Cells % 0 %; Platelet Count 200 10^3/cmm (130-400); Red Blood Count 3.37 10^6/uL (4.1-5.3); Red Cell Distribution Width 12.7 % (12.1-15.1); White Blood Count 5.1 10^3/uL (4.0-10.0)
[2020-09-22 02:34] LABS: Alanine Aminotransferase 10 U/L (0-33); Albumin Level 2.4 g/dL (3.5-5.2); Alkaline Phosphatase 81 IU/L (35-105); Anion Gap 8.3 (5-19); Aspartate Amino Transferase 14 U/L (0-32); Blood Urea Nitrogen 15 mg/dL (8-23); Calcium 7.8 mg/dL (8.5-10.5); Carbon Dioxide 29 mmol/L (22-29); Chloride 105 mmol/L (98-107); Globulin 2.2 g/dL (1.3-4.6); Glucose 87 mg/dL (65-115); Osmolality Calculated 288 mOsm/kg (285-295); Potassium 3.3 mmol/L (3.5-5.1); Sodium 139 mmol/L (136-145); Total Bilirubin 0.4 mg/dL (0.15-1.2); Total Protein 4.6 g/dL (6.6-8.7)
[2020-09-22] MEDS: diphenhydrAMINE 50 mg Capsule PO (07:30)
[2020-09-22] MEDS: sodium chloride 0.9% 1,000 ML 50 ML IV (07:30)
--- NOTE | 2020-09-22 08:35 | XACV_ITS ---
Ht: 152 cm Wt: 96 kg BSA: 2.07 m2 Any Known Allergies: Other Gender: Female : 1935 Exam Type: Invasive Peripheral Vascular Procedure(s): Procedure Description: Peripheral vascular Intervention Procedure Description: PV IVC Filter Placement Exam Priority: Routine Conclusions Indication for IVC filter: Extensive thrombus burden in the IVC and common iliacs and the patient with pulmonary embolism. Prophylaxis in order to prevent major embolism to pulmonary artery which could be life-threateningDue to extensive thrombus burden in the distal IVC right internal jugular approach was adopted. After confirming wire in the right internal jugular short 6 [place]uv[place] sheath was exchanged for long IVC filter sheath. IVC venogram was performed to identify renal vein. Below renal veins IVC [place] filter was deployed. It position was confirmed with cine loop. Procedure remained successful. Hemostasis of the right internal jugular was achieved after withdrawing the long sheath.. Recommendations Usual post-cath care. Follow-up in clinic in 7 days. Schedule patient for IVC retrieval in 3 months. Access Site Site: Right Jugular vein Sheath Size: 6 Fr Hemost... Method: Mechanical Compression Hemost... Success: Successful Procedure Details Findings Procedure Consent Obtained. Admit Source: In Patient. Pre-Procedure Time Out. Identified patient by full name and date of as verbalized by the patient/guarantor. Does the consent match the physician's order: Yes. Accurate & Complete Informed Consent: Yes. Inpatient/Outpatient History & Physical on Chart: Yes. If H&P is completed, is and addenduem needed: Yes; If yes, is the addendum complete: N/A. Visualize and Verify Site with Patient/Guarantor: N/A. Relevant Radiology Images available: N/A. Pre-op teaching completed and patient verbalized understanding. The risks, benefits, and alternatives of sedation and/or procedure were discussed by physician. The patient agrees to continue. Procedure started. Correct patient, site and procedure confirmed by cath team. PERRLA. 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 Lungs clear x 5 lobes. IV Site on Arrival: 20 gauge in the left wrist. IV Fluids: 0.9% NaCl at KVO. 100 mL infused prior to manager cardiac cath. Oxygen started at 2liters/min via nasal canula. bilateral groins was prepped with chloroprep then draped in the usual sterile fashion. Physician notified. Baseline sample Acquired. HR: 69 BPM. Physician arrived. Hussein Prescott RN to help with unltrasound. Physician scrubbed in. Immediate Pre-Procedure Time Out. Correct Patient: Yes; Correct Procedure: Yes; Correct Site: Yes; Correct Patient Position: Yes; Correct Supplies: Yes; Dried Flammable Prep: Yes; Blood Products Available: N/A;. Lidocaine 1% infiltrated to the right Jugular area. using ultra sound for guide to gain access. Venous access obtained with a micropuncture set. glidewire inserted. remove short sheath. inserting long IVC filter sheath. glidewire out. checking placement. 5F NPA catheter in over the glidewire. wire out. hand injection performed. glidewire inserted. glidewire out. catheter and wire out. IVC filter inserted. filter out. glidewire inserted. glidewire out. IVC filter inserted. balloon deployed. deployment device out. Sheath(s) removed and manual pressure held until hemostasis was achieved. Sterile 4x4 and Op-site applied to the puncture site. No oozing or hematoma noted. Post sheath removal instructions were given and the patient verbalized understanding. Post Procedure: Pulses reassessed and unchanged. PERRLA. 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 No VTE prophylaxis required. Medication's Wasted: Heparin = 1000 units. Total IV fluids: 95 mL. Contrast type used: Visipaque 320 mgI/mL, 500 mL bottle. Contrast Material : Visipaque 40 ml. A Mechanical Compression was successful obtaining hemostatsis at the Right Jugular vein insertion site. Complications: none. Estimated blood loss: 5mL-10mL. Procedure completed. Patient transferred by bed to [address] [place] [address]. Post-op diagnosis: IVC filter deployment. Vital chart was stopped. Procedure Medications Start: 9:14 AM Stop: 9:14 AM Medication: Versed Amount: 1 mg Route: I.V. Start: 9:14 AM Stop: 9:14 AM Medication: Fentanyl Amount: 50 mcg Route: I.V. Start: 9:30 AM Stop: 9:30 AM Medication: Versed Amount: 1 mg Route: I.V. Start: 9:30 AM Stop: 9:30 AM Medication: Fentanyl Amount: 50 mcg Route: I.V. I, the attending physician, have reviewed and verified all procedure medications. Yes, all medications given per verbal order Report Signatures Finalized by Pastor Grimaldo MD on 10/07/2020 06:53 PM
--- NOTE | 2020-09-22 09:25 | W.PM.OPSUD ---
Surgery/Procedure H&P Update DATE OF PROCEDURE: September 22, 2020 DATE H&P PERFORMED: 09/21/20 H&P UPDATE INFORMATION: I have reviewed H&P completed within last 30 days and I have examined patient prior to procedure PREOP DIAGNOSIS: IVC filter for extensive DVT PLANNED PROCEDURE: Operation Date: 09/22/20 08:30 Proposed Procedures p IVC Filter Insertion(Not Applicable) - Pastor Grimaldo MD PATIENT REASSESSED PRIOR TO SEDATION, WITH NO CHANGE NOTED: Yes PHYSICAL EXAM: alert, oriented x 3 and clear to auscultation bilaterally AIRWAY EVAL/ANESTHESIA PLAN: ASA II, Risks, benefits & alternatives of sedation and/or procedure discussed and Patient agrees to continue as planned
[2020-09-22] MEDS: pantoprazole DR 40 mg Tablet PO (12:02)
[2020-09-22] MEDS: baclofen 10 mg Tablet PO (12:02)
[2020-09-22] MEDS: sodium chloride 0.9% 1,000 ML 100 ML IV ×2 (12:03→20:20)
[2020-09-22] MEDS: TRAMadol 50 mg Tablet PO (13:48)
--- NOTE | 2020-09-22 16:19 | P.PN_ITS ---
Subjective Subjective: Interval history: No acute event overnight. Patient states she is feeling a lot better. Patient seen post IVC filter placement. She underwent the procedure well. On examination lying comfortably in bed with daughters at bedside. She denies any nausea vomiting, headache. Vitals/I&O/Wt Last Vital Signs Temp 98.0 F 09/22/20 16:16 Pulse 104 H 09/22/20 16:16 Resp 18 09/22/20 16:16 BP 114/67 09/22/20 16:16 Pulse Ox 96 09/22/20 16:16 09/22/20 09/22/20 09/22/20 06:59 14:59 22:59 Intake Total 0 / 0 Output Total 100 / 725 200 / 200 Balance -100 / -245 -200 / -200 Weight last 48 hrs Weight 96.298 kg Weight 96.252 kg Physical Exam Const: COMMON NORMALS: no acute distress and patient oriented x3 GENERAL APPEARANCE: cooperative NUTRITIONAL APPEARANCE: obese ORIENTATION/CONSCIOUSNESS: Yes awake HENMT: COMMON NORMALS: oropharynx normal Neck/C-Spine: COMMON NORMALS: no JVD Resp: COMMON NORMALS: normal respiratory effort and clear to auscultation bilaterally AUSCULTATION: clear to auscultation bilaterally Cardio: COMMON NORMALS: no JVD, regular rhythm, S1 normal heart sound present, S2 normal heart sound present and No murmurs present (Cardio) RHYTHM: regular rhythm HEART SOUNDS: S1 normal heart sound present and S2 normal heart sound present GI: COMMON NORMALS: Normal to inspection, nondistended, normoactive bowel sounds present, Soft to palpation and non-tender PALPATION: Yes Soft to palp ation Extremity: COMMON NORMALS: no joint enlargement GENERAL: Yes edema (3+ LLE to hip) Neuro: COMMON NORMALS: patient oriented x3 and moves all extremities Skin: COMMON NORMALS: no rashes or lesions noted GENERAL SKIN EXAM: no rashes or lesions noted LESIONS: lesion noted (Several 1cm unroofed healing blisters after patches of skin zaldivar buttocks) Data : 09/22/20 02:09 09/22/20 02:09 A&P Assessment and plan (1) Deep vein thrombosis of lower extremity: Extensive left femoral DVT extending up to mid IVC. As per patient she had taken Eliquis only for 2 days. Post IVC filter placement. Appreciate cardiology recommendations. Continue full dose Lovenox for now. Can plan to transition over to Eliquis on discharge. With regards to possibility of presence of PE as discussed with her and her family cannot exclude this possibility. VQ scan obtained, intermediate probability. At this time blood pressure is stable. Oxygenation is good even on room air (at baseline normally on 2 L due to COPD). No tachycardia. Hemodynamically appears stable. Doubt that there is an extensive PE if present. For now would follow-up TTE results, assess right ventricle, and based on that and further hemodynamics and oxygenation consider whether additional risk of CT angiogram of the chest is worth pursuing. Continue elevating left lower extremity. She could not tolerate SUJIT hose. Nursing has been measuring circumference, and with elevation appears to be gradually decreasing in size, although swelling is quite extensive. If may tolerate, consideration may be given to compression therapy. Revisit regarding monitoring for post phlebitis syndrome on discharge. Status: Acute Qualifiers: Affected thrombotic vein of extremity: unspecified vein of extremity Chronicity: acute Laterality: left Qualified Code(s): I82.402 - Acute embolism and thrombosis of unspecified deep veins of left lower extremity (2) Compression fracture: Pain appears to be somewhat improving, at least at rest. TLSO brace is being fitted as well. Continue lidocaine patch, Dilaudid as needed for breakthrough pain. Continue management of VTE/anticoagulation. Case discussed with Dr. Jeong. He states for now the plan would be to do conservative treatment given the extensive IVC DVT and need of anticoagulation for now. Continue mobilization with therapy. Use walker. Pain control has been difficult due to also allergy to multiple medications. Status: Acute (3) Swelling of left lower extremity: As above. Also noted incidental Amaro's cyst left popliteal fossa. Status: Acute (4) Degenerative disc disease: Noted on CT. continue mobilization. Would benefit from rehabilitation. Status: Acute (5) Chronic steroid use: PPI added. Discussed with her concern regarding osteopenia, osteoporosis, pathological fracture. She and family understand she will need additional follow-up regarding bone mineral density testing, consideration of treatment of osteopenia or osteoporosis with concern for pathological fracture. Avoid prednisone if possible. Check vitamin D and calcium levels Status: Acute (6) First degree burn of buttock: Continue dressing changes. Appreciate wound care consult. Status: Acute (7) COPD (chronic obstructive pulmonary disease): She is actually doing well on room air. Likely does not need oxygen chronically, but would assess home O2 evaluation when ready for discharge. On chronic 2 L oxygen previously. Uses albuterol as needed. Status: Acute Qualifiers: COPD type: COPD with acute exacerbation Qualified Code(s): J44.1 - Chronic obstructive pulmonary disease with (acute) exacerbation (8) JOSÉ MANUEL (acute kidney injury): Resolved. Creatinine 1.39 noted that [facility] [place] Discussed with her to avoid NSAIDs for now. Including Voltaren gel. Hold Lasix. Monitor renal function. Status: Acute (9) Urinary tract infection with hematuria: Proteus mirabilis. Was treated with ciprofloxacin. Status: Acute Qualifiers: Urinary tract infection type: acute cystitis Qualified Code(s): N30.01 - Acute cystitis with hematuria (10) Chronic kidney disease: Reported chronic kidney disease at [facility] [place]. Currently noted acute kidney injury. Status: Acute Qualifiers: Chronic kidney disease stage: stage 2 (mild) Qualified Code(s): N18.2 - Chronic kidney disease, stage 2 (mild) Additional A&P Information Hypokalemia: Replaced Spinal stenosis Nonobstructive nephrolithiasis Full code. Cardiac diet, n.p.o. after midnight. Full dose Lovenox will also help with DVT prophylaxis. Discharge planning: If patient continues to do well with most likely discharge in next 24 hours with transitioning over to oral anticoagulation discharge planning: If patient continues to do well will plan to discharge in next 24 hours on oral anticoagulation. Patient will need to follow-up with a primary care provider in 7 to 10 days and with gear straightener within next 1 week with advised to follow-up with vascular surgeon for possible thrombectomy as an outpatient once thrombus burden is more organized. The plan of care were discussed in detail with patient and patient's daughters at bedside. There was a concern of patient living alone and being deconditioned because of severe pain. Patient denies of going to SNF but has agreed for home health. Will consult case management for same. Attestations Medical Necessity Statement*: Patient requires further hospitalization for management of extensive left femoral DVT Time Spent in Patient Care: Greater than 35 minutes (>than 50% of time spent in counselling and/or direct pt care on unit) . Coding Level of Care Code Acute Procurement Intern for Evangelista Britt Diagnoses Deep vein thrombosis of lower extremity I82.402 Affected thrombotic vein of extremity: unspecified vein of extremity Chronicity: acute Laterality: left Compression fracture Swelling of left lower extremity M79.89 Degenerative disc disease Chronic steroid use First degree burn of buttock T21.15XA COPD (chronic obstructive pulmonary disease) J44.1 COPD type: COPD with acute exacerbation JOSÉ MANUEL (acute kidney injury) N17.9 Urinary tract infection with hematuria N30.01 Urinary tract infection type: acute cystitis Chronic kidney disease N18.2 Chronic kidney disease stage: stage 2 (mild)
[2020-09-22] MEDS: enoxaparin 100 mg/mL Syringe 90 MG SUBCUT (17:38)
[2020-09-22] MEDS: silver sulfadiazine cream 1% 50 gm 1 APPLIC TOPICAL ×2 (18:28)
[2020-09-22] MEDS: lidocaine 5% Patch 1 PATCH TOPICAL (20:24)
--- NOTE | 2020-09-22 23:07 | PM.PN ---
Subjective Subjective: Interval history: Through right internal jugular approach under ultrasound guidance [place] [employer] Celect reducible IVC filter was placed for extensive DVT extending into IVC. Patient tolerated procedure well. She has been transferred to the room. Vitals/I&O/Wt Last Vital Signs Temp 98.6 F 09/22/20 20:00 Pulse 89 09/22/20 20:16 Resp 16 09/22/20 20:16 BP 103/62 09/22/20 20:00 Pulse Ox 96 09/22/20 20:16 09/22/20 09/22/20 09/23/20 14:59 22:59 06:59 Intake Total 0 / 0 998.333 / 998.333 Output Total 200 / 200 300 / 500 Balance -200 / -200 698.333 / 498.333 Weight last 48 hrs Weight 212 lb 4.8 oz Weight 212 lb 3.2 oz Physical Exam Narrative: EXAM NARRATIVE: GENERAL: Patient is alert, awake and oriented x3. NECK: No jugular vein distension. HEENT: No cyanosis. No icterus. No pallor. HEART: Regular S1 and S2. No murmur, rub or gallop. LUNGS: Clear to auscultate bilaterally. ABDOMEN: Soft, nontender and nondistended. Positive bowel sounds. No guarding, rebound or tenderness. CENTRAL NERVOUS SYSTEM: Grossly nonfocal. EXTREMITIES: Lower extremities with 1+ edema bilaterally. Data : 09/22/20 02:09 09/22/20 02:09 A&P Assessment and plan (1) Deep vein thrombosis of lower extremity: Extensive DVT extending to inferior vena cava. Status post IVC filter placement. Plan to retrieve it in 3 to 6-month. Continue anticoagulation. Follow-up with my clinic post discharge in 8 to 12 weeks. We will discuss 10 regarding date of retrieval Status: Acute Qualifiers: Affected thrombotic vein of extremity: unspecified vein of extremity Chronicity: acute Laterality: left Qualified Code(s): I82.402 - Acute embolism and thrombosis of unspecified deep veins of left lower extremity Attestations Medical Necessity Statement*: Patient require continuation hospitalization for above defined care. Coding Level of Care Code Established Pt Acute Vice President Planning for Evangelista Britt Patient Type Established History Detailed Exam Detailed Medical Decision Making Moderate Complexity Diagnoses Deep vein thrombosis of lower extremity I82.402 Affected thrombotic vein of extremity: unspecified vein of extremity Chronicity: acute Laterality: left
[2020-09-23] VITALS (8 sets, daily range): BP systolic 96–121; BP diastolic 58–63; PULSE 85–99; RESP 15–18; TEMP 36.4–37.1; O2SAT 96–98
[2020-09-23 02:48] LABS: Basophils % 0.8 %; Eosinophils # 0.1 10^3/uL (0.0-0.8); Eosinophils % 2.7 %; Hematocrit 31.4 % (37.0-47.0); Hemoglobin 9.6 g/dL (11.5-15.3); Lymphocytes # 1.2 10^3/uL (0.8-4.8); Lymphocytes % 24.2 %; Mean Corpuscular HGB Conc 30.6 g/dL (30.0-36.0); Mean Corpuscular Hemoglobin 29.8 pg (28.0-34.0); Mean Corpuscular Volume 97.5 fL (81-99); Mean Platelet Volume 9.8 fL (7.4-10.4); Monocytes # 0.5 10^3/uL (0.2-0.9); Monocytes % 10.1 %; Neutrophils # 2.86 10^3/uL (1.8-7.7); Neutrophils % 60.1 %; Nucleated Red Blood Cells % 0 %; Platelet Count 216 10^3/cmm (130-400); Red Blood Count 3.22 10^6/uL (4.1-5.3); Red Cell Distribution Width 12.7 % (12.1-15.1); White Blood Count 4.8 10^3/uL (4.0-10.0)
[2020-09-23 03:08] LABS: Anion Gap 7.3 (5-19); Blood Urea Nitrogen 10 mg/dL (8-23); Calcium 7.4 mg/dL (8.5-10.5); Carbon Dioxide 27 mmol/L (22-29); Chloride 109 mmol/L (98-107); Glucose 93 mg/dL (65-115); Osmolality Calculated 289 mOsm/kg (285-295); Potassium 3.3 mmol/L (3.5-5.1); Sodium 140 mmol/L (136-145)
[2020-09-23] MEDS: sodium chloride 0.9% 1,000 ML 100 ML IV (05:58)
[2020-09-23] MEDS: enoxaparin 100 mg/mL Syringe 90 MG SUBCUT (05:59)
[2020-09-23] MEDS: pantoprazole DR 40 mg Tablet PO (09:19)
[2020-09-23] MEDS: baclofen 10 mg Tablet PO (09:19)
[2020-09-23] MEDS: metoprolol tartrate 25 mg Tablet 12.5 MG PO (09:19)
--- NOTE | 2020-09-23 12:09 | PM.DCS ---
Discharge Providers Date of Admission: 09/19/20 08:49 Date of Discharge: September 23, 2020 Attending Provider at Admission: Rod Ivy MD Attending Provider at Discharge: Andrea Whitley MD Primary Care Provider: GERARDO Herron Diagnoses at Discharge Discharge Diagnosis (1) Deep vein thrombosis of lower extremity: Status: Acute Qualifiers: Affected thrombotic vein of extremity: unspecified vein of extremity Chronicity: acute Laterality: left Qualified Code(s): I82.402 - Acute embolism and thrombosis of unspecified deep veins of left lower extremity (2) Compression fracture: Status: Acute (3) Swelling of left lower extremity: Status: Acute (4) Degenerative disc disease: Status: Acute Reason for Visit Reason for Visit: DVT Hospital Course Hospital Course 85-year-old lady with COPD, on chronic oxygen 2 L, HTN, osteoarthritis and degenerative disc disease, intermittently taking prednisone as needed, recently also with development of a number of health problems, with severe back pain due to compression fracture of L5 noted on CT abdomen pelvis 08/30, also with incidentally noted bilateral nonobstructing kidney stones, with 50% burst fracture of L5 also seen on CT lumbar spine 09/15, with also severe central and bilateral lateral recess and moderate foraminal stenosis at L4-5 and displacement of L5 nerve roots, mild central and bilateral foraminal stenosis L3-4, mild central and subarticular recess stenosis L2-3, posterior retropulsion superior endplate of L2 extending into right lateral recess with mild stenosis. This was planned to be additionally managed by kyphoplasty due to persistent pain with inability to ambulate, however, this is now postponed after she was also noted to have swelling of left lower extremity on duplex venous evaluation 09/17 after swelling seen at her PCPs office, with finding of left femoral vein DVT. She was started on Eliquis on ER visit 09/17. She was also recently treated for urinary tract infection with ciprofloxacin, growing Proteus mirabilis on culture 09/03. She has also been putting ointment prescribed to her by her primary provider on her buttocks after she sustained mild zaldivar with blistering from a heating pad. She was brought in for evaluation to [facility] [place] ER from where she was transferred here due to persistence of pain both lower back, as well as in her leg, as well as worsening of the degree of swelling. Patient went to the hospital on medical surgical floor and was started on pain regimen for back pain. For lower limb edema she underwent venous duplex which showed extensive DVT on the left extremity with possible extension into IVC. She underwent IVC duplex which showed extension of the thrombus up to mid to distal IVC without any involvement of bilateral renal veins. Cardiology was consulted and patient underwent IVC filter on September 22 which is worse. She tolerated the procedure well. Decision was made to continue the Eliquis on discharge as patient had taken Eliquis only for 2 days prior to admission and that does not qualify for Eliquis failure. For lumbar fracture care was discussed with her outpatient orthopedist Dr. Jeong who advised to continue the conservative treatment for now given the new DVT/anticoagulation for next 2 months with possible OR as an outpatient. She is discharged in medically stable condition with advised to continue Eliquis 10 mg twice daily for next 7 days and then 5 mg twice daily. She is advised to follow-up with cardiology in the next 2 weeks. She is also advised to continue wound care as per surgical recommendations for fourth degree zaldivar of the buttock. Because of decreased mobility because of lumbar fracture patient was advised for SNF placement for safe discharge though she denied but agreed for home health. Home health has been arranged. Physical Exam Const: COMMON NORMALS: no acute distress and patient oriented x3 GENERAL APPEARANCE: cooperative NUTRITIONAL APPEARANCE: obese ORIENTATION/CONSCIOUSNESS: Yes awake HENMT: COMMON NORMALS: oropharynx normal Neck/C-Spine: COMMON NORMALS: no JVD Resp: COMMON NORMALS: normal respiratory effort and clear to auscultation bilaterally AUSCULTATION: clear to auscultation bilaterally Cardio: COMMON NORMALS: no JVD, regular rhythm, S1 normal heart sound present, S2 normal heart sound present and No murmurs present (Cardio) RHYTHM: regular rhythm HEART SOUNDS: S1 normal heart sound present and S2 normal heart sound present GI: COMMON NORMALS: Normal to inspection, nondistended, normoactive bowel sounds present, Soft to palpation and non-tender PALPATION: Yes Soft to palpation Extremity: COMMON NORMALS: no joint enlargement GENERAL: Yes edema (3+ LLE to hip) Neuro: COMMON NORMALS: patient oriented x3 and moves all extremities Skin: COMMON NORMALS: no rashes or lesions noted GENERAL SKIN EXAM: no rashes or lesions noted LESIONS: lesion noted (Several 1cm unroofed healing blisters after patches of skin zaldivar buttocks) Discharge Data Data Completed and Pending: Completed Studies During Hospitalization Category Date Time Status XR chest 2V* 7104 6 Routine Exams 09/19/20 14:39 Completed XR hip LT 2-3V wo /w pel* [id number] Rout ine Exams 09/19/20 12:37 Completed NM pul vent and p erfus* [id number] Stat Nuc Med 09/19/20 12:38 Completed CV duplex IVC 939 78 Routine Ultrasound 09/21/20 17:17 Completed CV echo complete* [id number] Routine Ultrasound 09/20/20 06:00 [place] [address] Routin e Ultrasound 09/20/20 06:00 Completed Pending at discharge Category Date Time Status WALLP[employer]ER INSPECTOR AND [employer]IPPER request for service Routin e Exams 09/22/20 08:35 Taken Vitamin D 1,25 Di hydroxy Routine Lab 09/21/20 05:08 Received CV guidevascular [employer]ALLP[employer] INS[employer]PER ONLY Stat Ultrasound 09/22/20 09:23 Taken Labs from last 24 hours 09/23/20 09/23/20 02:24 02:24 WBC 4.8 RBC 3.22 L Hgb 9.6 L Hct 31.4 L MCV 97.5 MCH 29.8 MCHC 30.6 RDW 12.7 Plt Count 216 MPV 9.8 Neut % (Auto) 60.1 Lymph % (Auto) 24.2 [place] % (Auto) 10.1 Eos % (Auto) 2.7 Baso % (Auto) 0.8 Neut # (Auto) 2.86 Lymph # (Auto) 1.2 [place] # (Auto) 0.5 Eos # (Auto) 0.1 Baso # (Auto) 0.0 Nucleated RBC % (a uto) 0 Nucleated RBCs # 0.0 Sodium 140 Potassium 3.3 L Chloride 109 H Carbon Dioxide 27 Anion Gap 7.3 BUN 10 Creatinine 0.8 GFR Calculation Not Reportable Glucose 93 Calculated Osmolal ity 289 Calcium 7.4 L Addt'l Data from Hospital Stay: Laboratory Results WBC 4.8 10^3/uL (4.0- 10.0) 09/23/20 02:24 RBC 3.22 10^6/uL (4.1 -5.3) L 09/23/20 02:24 Hgb 9.6 g/dL (11.5-15 .3) L 09/23/20 02:24 Hct 31.4 % (37.0-47.0 ) L 09/23/20 02:24 MCV 97.5 fL (81-99) 09/23/20 02:24 MCH 29.8 pg (28.0-34. 0) 09/23/20 02:24 MCHC 30.6 g/dL (30.0-3 6.0) 09/23/20 02:24 RDW 12.7 % (12.1-15.1 ) 09/23/20 02:24 Plt Count 216 10^3/cmm (130 -400) 09/23/20 02:24 MPV 9.8 fL (7.4-10.4) 09/23/20 02:24 Neut % (Auto) 60.1 % 09/23/20 02:24 Lymph % (Auto) 24.2 % 09/23/20 02:24 [place] % (Auto) 10.1 % 09/23/20 02:24 Eos % (Auto) 2.7 % 09/23/20 02:24 Baso % (Auto) 0.8 % 09/23/20 02:24 Neut # (Auto) 2.86 10^3/uL (1.8 -7.7) 09/23/20 02:24 Lymph # (Auto) 1.2 10^3/uL (0.8- 4.8) 09/23/20 02:24 [place] # (Auto) 0.5 10^3/uL (0.2- 0.9) 09/23/20 02:24 Eos # (Auto) 0.1 10^3/uL (0.0- 0.8) 09/23/20 02:24 Baso # (Auto) 0.0 10^3/uL (0.0- 0.1) 09/23/20 02:24 Nucleated RBC % (a uto) 0 % 09/23/20 02:24 Nucleated RBCs # 0.0 /100WBC 09/23/20 02:24 Sodium 140 mmol/L (136-1 45) 09/23/20 02:24 Potassium 3.3 mmol/L (3.5-5 .1) L 09/23/20 02:24 Chloride 109 mmol/L (98-10 7) H 09/23/20 02:24 Carbon Dioxide 27 mmol/L (22-29) 09/23/20 02:24 Anion Gap 7.3 (5-19) 09/23/20 02:24 BUN 10 mg/dL (8-23) 09/23/20 02:24 Creatinine 0.8 mg/dL (0.5-0. 9) 09/23/20 02:24 GFR Calculation Not Reportable 09/23/20 02:24 Glucose 93 mg/dL (65-115) 09/23/20 02:24 Calculated Osmolal ity 289 mOsm/kg (285- 295) 09/23/20 02:24 Calcium 7.4 mg/dL (8.5-10 .5) L 09/23/20 02:24 Total Bilirubin 0.4 mg/dL (0.15-1 .2) 09/22/20 02:09 AST 14 U/L (0-32) 09/22/20 02:09 ALT 10 U/L (0-33) 09/22/20 02:09 Alkaline Phosphata se 81 IU/L (35-105) 09/22/20 02:09 Total Protein 4.6 g/dL (6.6-8.7 ) L 09/22/20 02:09 Albumin 2.4 g/dL (3.5-5.2 ) L 09/22/20 02:09 Globulin 2.2 g/dL (1.3-4.6 ) 09/22/20 02:09 25-OH Vitamin D To estiven 11 ng/mL (30-100) L 09/21/20 05:08 Impressions Hip/Pelvis X-Ray 09/19/20 12:37 IMPRESSION: No acute fracture. Pulmonary Perfusion Imaging 09/19/20 12:38 IMPRESSION: Indeterminate probability for pulmonary embolism. Consider follow-up CTA for further evaluation if indicated. Chest X-Ray 09/19/20 14:39 IMPRESSION: No acute findings. Venous Duplex 09/20/20 06:00 IMPRESSION: 1. Extensive left lower extremity deep venous thrombosis, similar to the prior exam. Please see above details/discussion. 2. Suspected left popliteal/Amaro's cyst, details above. Inferior vena cava duplex: Findings CLOT SEEN FROM IVC MID AND DIST INTO LT CIV. IVC PROX, RT CIV AND BILAT RENAL VEINS APPEAR PATENT Conclusions Thrombus Mid and distal IVC into Left common iliac vein Bilateral Renal veins are patent. Robert Marco MD (Electronically Signed) Final Date: 21 September 2020 09:44 Procedures Performed: IVC filter placement on September 22. Vitals: Last Vital Signs Temp 97.8 F 09/23/20 07:35 Pulse 95 09/23/20 08:14 Resp 18 09/23/20 08:14 BP 110/58 09/23/20 07:35 Pulse Ox 98 09/23/20 08:14 Discharge Plan Discharge Patient Disposition: Home Health Service Condition: Stable Prescriptions: New Silvadene 1 % Cream 1 applic topical BID Qty: 30 RF: 0 pantoprazole 40 mg Tablet,Delayed Release (Dr/Ec) 40 mg PO DAILY Qty: 30 RF: 0 Lidoderm 5 % Adhesive Patch,Medicated 1 patch topical [id number] Qty: 10 RF: 0 Eliquis DVT-PE Treat 30D Start 5 mg (74 tabs) tablets,dose pack See Rx Instructions .ROUTE .COMPLEX Qty: 74 RF: 0 Continued mupirocin 2 % Ointment 1 applic TOPICAL BID RF: 0 tramadol 50 mg Tablet 50 mg PO Q6H PRN (Reason: pain) RF: 0 metoprolol tartrate 25 mg Tablet 25 mg PO DAILY RF: 0 baclofen 10 mg Tablet 10 mg PO DAILY RF: 0 Discontinued amoxicillin-pot clavulanate 125-31.25 mg Tablet,Chewable 1 tab PO BID RF: 0 Eliquis 5 mg Tablet 5 mg PO BID RF: 0 ciprofloxacin HCl 500 mg Tablet 500 mg PO BID RF: 0 diclofenac sodium [Voltaren] 1 % Gel 2 g TOPICAL QID RF: 0 Discharge Orders: Discharge Order (Routine); Ordered 09/23/20 Ordered By: Andrea Whitley Referrals: [facility] [Outside] Ever Melton MD [Physician] - 10/07/20 1:30 pm Pastor Grimaldo MD [Physician] - 11/18/20 3:30 pm Chen Reza FNP [Nurse Practitioner] - 10/08/20 1:00 pm Discharge Diet: Usual diet Discharge Activity: Resume usual activity and Increase activity as tolerated Patient Instructions: Silver Sulfadiazine (On the skin), Pantoprazole (By mouth), Lidocaine Patch (On the skin), Apixaban (By mouth), Opioid Safety Activity Restrictions/Additional Instructions: Please wear compression stockings on the legs for next 2 weeks. Please follow-up with your primary care provider with next 2 weeks onset appointment with Dr. Melton on October 07. Please follow-up with Dr. Grimaldo in 2 weeks. On resting please keep your legs elevated. Please try to ambulate as much as possible. Discharge Attestations Time Spent in Discharge Care*: greater than 30 min Specific Discharge Activities: educating patient, discussing with pcp/other providers, discussing with patient case coordinator/social workers/dc planners, documenting/other paperwork and evaluating patient/reviewing data Status at Discharge: Cognitive status at discharge: cognitively intact, Behavioral status at discharge: cooperative, Functional status at discharge: independent ambulation Overall status at discharge: patient is back to baseline Quality Metrics Clinical Quality Measures During this hospital stay, did patient experience: None Coding Level of Care Code Acute Chg FW DC note Exam Comprehensive Diagnoses Deep vein thrombosis of lower extremity I82.402 Affected thrombotic vein of extremity: unspecified vein of extremity Chronicity: acute Laterality: left Compression fracture Swelling of left lower extremity M79.89 Degenerative disc disease
--- NOTE | 2020-09-23 13:48 | PM.PN ---
Subjective Subjective: Interval history: Patient denies any complaint doing fine from a vascular perspective. She is status post IVC filter right neck wound looks good no hematoma. Anticoagulation has been resumed. Vitals/I&O/Wt Last Vital Signs Temp 98.2 F 09/23/20 12:00 Pulse 85 09/23/20 12:00 Resp 17 09/23/20 12:00 BP 96/58 09/23/20 12:00 Pulse Ox 97 09/23/20 12:00 09/22/20 09/23/20 09/23/20 22:59 06:59 14:59 Intake Total 998.333 / 625.078 4207.500 / 2860.833 Output Total 300 / 500 200 / 700 Balance 698.333 / 141.564 2344.500 / 2160.833 Weight last 48 hrs Weight 219 lb Weight 212 lb 4.8 oz Physical Exam Narrative: EXAM NARRATIVE: GENERAL: Patient is alert, awake and oriented x3. NECK: No jugular vein distension. HEENT: No cyanosis. No icterus. No pallor. HEART: Regular S1 and S2. No murmur, rub or gallop. LUNGS: Clear to auscultate bilaterally. ABDOMEN: Soft, nontender and nondistended. Positive bowel sounds. No guarding, rebound or tenderness. CENTRAL NERVOUS SYSTEM: Grossly nonfocal. EXTREMITIES: Lower extremities with 1+ edema bilaterally. Const: COMMON NORMALS: alert Resp: COMMON NORMALS: clear to auscultation bilaterally AUSCULTATION: clear to auscultation bilaterally Neuro: SENSORIUM/ORIENTATION: Yes alert Data : 09/23/20 02:24 09/23/20 02:24 A&P Assessment and plan (1) Deep vein thrombosis of lower extremity: Status post IVC filter placement doing fine from a vascular perspective. Follow-up with Dr. Grimaldo in the clinic as scheduled we are planning to retrieve filter in 3 months Status: Acute Qualifiers: Affected thrombotic vein of extremity: unspecified vein of extremity Chronicity: acute Laterality: left Qualified Code(s): I82.402 - Acute embolism and thrombosis of unspecified deep veins of left lower extremity Attestations Medical Necessity Statement*: As per medicine Coding Level of Care Code Established Pt Acute Teacher Education Director for g Fwd Patient Type Established History Expanded Problem Focused Exam Expanded Problem Focused Medical Decision Making Moderate Complexity Diagnoses Deep vein thrombosis of lower extremity I82.402 Affected thrombotic vein of extremity: unspecified vein of extremity Chronicity: acute Laterality: left
[2020-09-23] MEDS: silver sulfadiazine cream 1% 50 gm 1 APPLIC TOPICAL (15:03)
--- NOTE | 2020-09-23 16:45 | PC.NURSE ---
Late entry: 1545 Gave patient and daughter discharge instructions. Answered all questions, patient states verbal understanding. IV catheter removed, tip intact. Patient discharged at this time in stable condition.
--- NOTE | 2020-09-23 17:22 | PC.RESP ---
Pulmonary Rehab information sent to patient.
[2020-09-29 17:28] LABS: Vit D 1,25 (Oh)2, Total 9 pg/mL (18-72); Vit D2 1,25 (Oh)2 <8 pg/mL; Vit D3 1,25 (Oh)2 9 pg/mL
== END 2020-09-23 15:45 | disposition home health service (06) | DRG 294 ==
PROVIDERS: Internal Medicine; Internal Medicine Cardiovascular Disease; Admitting Provider Internal Medicine; PCP Registered Nurse; Visit Provider Student in an Organized Health Care Education/Training Program
PROC: 06H03DZ Insertion of Intraluminal Device into Inferior Vena Cava, Percutaneous Approach (ICD-10-PCS; CPT 37191; principal; 2020-09-22 08:30)
DX: I82.220 Acute embolism and thrombosis of inferior vena cava (principal); S32.050A Wedge compression fracture of fifth lumbar vertebra, initial encounter for closed fracture; I82.412 Acute embolism and thrombosis of left femoral vein; I82.422 Acute embolism and thrombosis of left iliac vein; J44.1 Chronic obstructive pulmonary disease with (acute) exacerbation; N17.9 Acute kidney failure, unspecified; N30.01 Acute cystitis with hematuria; Z99.81 Dependence on supplemental oxygen; I12.9 Hypertensive chronic kidney disease with stage 1 through stage 4 chronic kidney disease, or unspecified chronic kidney disease; N18.9 Chronic kidney disease, unspecified; M19.90 Unspecified osteoarthritis, unspecified site; X58.XXXA Exposure to other specified factors, initial encounter; N20.0 Calculus of kidney; M48.061 Spinal stenosis, lumbar region without neurogenic claudication; Z87.440 Personal history of urinary (tract) infections; Z79.52 Long term (current) use of systemic steroids; Z87.891 Personal history of nicotine dependence; T21.15XA Burn of first degree of buttock, initial encounter; Y63.5 Inappropriate temperature in local application and packing; G89.29 Other chronic pain; B96.4 Proteus (mirabilis) (morganii) as the cause of diseases classified elsewhere; E87.6 Hypokalemia
CPT/HCPCS: 36010; 36415; 37191; 71046; 73502; 76937; 78014; 80048; 80053; 82306; 82310; 82652; 85025; 87635; 93306; 93971; 93978; 94664; 96372; 97110; 97161; 97530; 99282; A9540; A9567; C1769; C1880; C1887; C1894; J1644; J1650; J2250; J3010; J7030; Q0163; Q9967

== ENCOUNTER → 2020-12-09 10:58 | Outpatient (BNVA) | payer MEDICARE, SELFPAY | PROVIDERS: PCP Family Medicine Adult Medicine; Visit Provider Nurse Practitioner | DX: R39.9 Unspecified symptoms and signs involving the genitourinary system (principal) | CPT/HCPCS: 81000 ==

== ENCOUNTER 2020-12-28 08:55 | Outpatient (CLI) | payer MEDICARE, SELFPAY ==
--- NOTE | 2020-12-28 10:15 | USCV_ITS ---
Brady Nails Age: 85 Gender: F : 1935 Exam Date: 12/28/2020 09:23 Ordering Phys: Chen Reza Technologist: Juana Graf [place] [facility] [place]: ASSESS FOR RESOLUTION OF DVT HISTORY: History of deep venous thrombosis. PROCEDURES: Venous duplex imaging was performed in only the left lower extremity. The following venous structures were evaluated: common femoral vein, profunda vein, proximal portion of the greater saphenous vein, superficial femoral vein, and the popliteal vein. In addition, the posterior tibial and peroneal trunk were evaluated. FINDINGS: Normal 2-D Doppler and augmentation and compressibility throughout the lower extremity venous structures. Additional imaging through the proximal calf veins also reveals no thrombus. Limited evaluation of the greater saphenous vein is patent with no thrombus. Previous report stated there was a solomon's cyst. This was not visualized today. Patient c/o pain and had difficulty cooperating for exam. CONCLUSIONS Comparison 09/23 No evidence of left lower extremity DVT today Robert Lara MD (Electronically Signed) Final Date: 28 December 2020 17:45 S
== END 2020-12-28 08:56 | disposition home or self-care (01) ==
LOC: RAD 09:03
PROVIDERS: PCP Family Medicine Adult Medicine; Visit Provider Nurse Practitioner Family
DX: Z95.828 Presence of other vascular implants and grafts (principal); Z86.718 Personal history of other venous thrombosis and embolism
CPT/HCPCS: 93971

== ENCOUNTER 2021-01-12 12:52 | Outpatient (CLI) | payer MEDICARE, SELFPAY ==
--- NOTE | 2021-01-12 13:00 | XR_ITS ---
WS: [id number] LEFT KNEE: 3 VIEW(S) TECHNIQUE: AP, oblique(s) and lateral. HISTORY: bilateral knee pain COMPARISON: 07/02/2018 Moderate narrowing of the medial compartment. Small marginal osteophytes at the medial compartment. O steopenia. Otherwise mild narrowing of the lateral and patellofemoral joint spaces. Prior sacral No joint effusion. No soft tissue abnormality. XR/XR knee LT 3V* [id number] IMPRESSION: Moderate medial compartment osteoarthritis. Similar to the prior study with no progression.
--- NOTE | 2021-01-12 13:30 | XR_ITS ---
WS: [id number] RIGHT KNEE: 3 VIEW(S) TECHNIQUE: AP, oblique(s) and lateral. HISTORY: bilateral knee pain COMPARISON: 07/02/2018 Severe narrowing medial compartment with near bone upon bone and osteochondral defects involving the weightbearing surface of the femoral condyle and medial tibial plateau with osteophytes. Additional mild narrowing of the lateral patellofemoral compartments. No fractures. No joint effusion. No soft tissue abnormality. XR/XR knee RT 3V* [id number] IMPRESSION: Severe medial compartment osteoarthritis with osteochondral defects involving t he weightbearing surfaces.
== END 2021-01-12 12:53 | disposition home or self-care (01) ==
PROVIDERS: PCP Family Medicine Adult Medicine; Visit Provider Family Medicine Adult Medicine
DX: M17.0 Bilateral primary osteoarthritis of knee (principal)
CPT/HCPCS: 73562

== ENCOUNTER → 2021-01-14 10:52 | Outpatient (BNVA) | payer MEDICARE, SELFPAY | PROVIDERS: PCP Family Medicine Adult Medicine; Referring Provider Internal Medicine Cardiovascular Disease; Visit Provider Internal Medicine Cardiovascular Disease | DX: Z01.818 Encounter for other preprocedural examination (principal); Z95.828 Presence of other vascular implants and grafts; N18.2 Chronic kidney disease, stage 2 (mild); Z20.822 Contact with and (suspected) exposure to COVID-19; Z86.718 Personal history of other venous thrombosis and embolism | CPT/HCPCS: 80048; 85025; 85610; 87635 ==

== ENCOUNTER 2021-01-21 06:57 | Day surgery (SDC) | payer MEDICARE, SELFPAY ==
[2021-01-21] VITALS (13 sets, daily range): BP systolic 115–152; BP diastolic 58–81; PULSE 57–74; RESP 13–27; TEMP 36.8; O2SAT 90–97; BMI 31.4
--- NOTE | 2021-01-21 07:30 | XACV_ITS ---
Exam Room: 1 Ht: 152 cm Wt: 73 kg BSA: 1.79 m2 Gender: Female : 1935 Any Known Allergies: Other Exam Priority: Routine Procedure(s): Procedure Description: Diagnostic procedure Procedure Description: Miscellaneous Diagnostic Cath Status: Elective Conclusions 1. IVC filter removal through right internal jugular approachAfter carefully explaining all risk benefit and alternative for the procedure informed consent was obtained. Under sterilized condition and moderate conscious sedation right internal jugular was cannulated under ultrasound. 6 [place] sheath was upsized with 12 [place] long dual sheath used for filter removal.IVC venogram was performed which did not show any filling defect or thrombus in the IVC filter. Through long 12 Kos[place] IVC removal sheath snare was passed, IVC filter hook was engaged through the snare, sheath was pushed down while pulling the snare wire which resulted in the collapse of the IVC filter, IVC filter was withdrawn in a collapsed manner within the major sheath. Inner sheath including IVC filter was removed out of the body without any complication . Wire was inserted through which 12 [place] sheath to be withdrawn out of the body. Hemostasis was achieved manually by holding pressure on the internal jugular vein for 15 minutes. No hematoma or bleeding noted. Patient was observed for couple of hours. She was discharged home in a stable condition. Recommendations * Usual post cath care. Clinical Evaluation EBL: 5mL-10mL Procedural Details Procedure Consent Obtained. Pre-Procedure Time Out. Identified patient by full name and date of as verbalized by the patient/guarantor. Does the consent match the physician's order: Yes. Accurate & Complete Informed Consent: Yes. Inpatient/Outpatient History & Physical on Chart: Yes. If H&P is completed, is and addenduem needed: Yes; If yes, is the addendum complete: Yes. Visualize and Verify Site with Patient/Guarantor: N/A. Relevant Radiology Images available: Yes. Pre-op teaching completed and patient verbalized understanding. The risks, benefits, and alternatives of sedation and/or procedure were discussed by physician. The patient agrees to continue. Procedure started. IV Site on Arrival: 20 gauge in the left anticubital. IV Fluids: 0.9% NaCl at KVO. 0 mL infused prior to veterinary laboratory diagnostician. Oxygen started at 2liters/min via nasal canula. right jugular was prepped with chloroprep then draped in the usual sterile fashion. Physician notified. Baseline sample Acquired. HR: 80 BPM. Physician arrived. right groin was prepped with chloroprep then draped in the usual sterile fashion. Physician scrubbed in. Immediate Pre-Procedure Time Out. Correct Patient: Yes; Correct Procedure: Yes; Correct Site: Yes; Correct Patient Position: Yes; Correct Supplies: Yes; Dried Flammable Prep: Yes; Blood Products Available: N/A;. Lidocaine 1% infiltrated to the right jugular. ultrasound used for venous access. Venous access obtained with a micropuncture set. wire inserted through the sheath and advanced to the IVC. sheath removed OTW. 12 Fr dilator inserted and advanced OTW. dilator removed OTW. Sheath upsized to a 12 Fr. contrast hand injected through the sheath. Retrieval sysytem inserted through the sheath and advanced to the IVC. IVC filter removed intact. Sheath(s) removed and manual pressure held until hemostasis was achieved. Sterile 4x4 and Op-site applied to the puncture site. No oozing or hematoma noted. Post sheath removal instructions were given and the patient verbalized understanding. A Manual Compression was successful obtaining hemostatsis at the Right Jugular vein insertion site. Post Procedure: Pulses reassessed and unchanged. PERRLA. Strong, equal hand flight line mechanic bilaterally. No VTE prophylaxis required. Medication's Wasted: Heparin = 1000 units. Medication's Wasted: Other = Fentanyl 25 mg. Total IV fluids: 59 mL. Estimated blood loss: 5mL-10mL. Procedure completed. Patient transferred by stretcher to CPRU. Vital chart was stopped. Access Site Site: Right Jugular vein Sheath Size: 6 Fr Hemostasis Method: Manual Compression Hemostasis Success: Successful Procedure Medications Start: 9:16 AM Stop: 9:16 AM Medication: Versed 1 mg and Fentanyl 25 mcg Amount: 1 Route: I.V. Start: 9:31 AM Stop: 9:31 AM Medication: Versed Amount: 1 mg Route: I.V. Start: 9:34 AM Stop: 9:34 AM Medication: Fentanyl Amount: 25 mcg Route: I.V. Start: 9:58 AM Stop: 9:58 AM Medication: Fentanyl Amount: 25 mcg Route: I.V. I, the attending physician, have reviewed and verified all procedure medications. Yes, all medications given per verbal order History/Risk Factors Hypertension: No Dyslipidemia: No Peripheral Arterial Disease (PAD): No Myocardial Infarction (CT): No Obesity: No Renal Disease: No Prior Interventions PCI: No CABG: No Valve Surgery: No Report Signatures Finalized by Pastro Grimaldo MD on 02/04/2021 04:16 PM
[2021-01-21] MEDS: diphenhydrAMINE 50 mg/mL SDV 1mL 25 MG IVP (08:22)
--- NOTE | 2021-01-21 08:55 | P.HP_ITS ---
Same Day Surgery H&P Indication for Procedure/HPI DATE OF PROCEDURE: January 21, 2021 CHIEF COMPLAINT/INDICATIONFOR SURGICAL PROCEDURE: Removal of IVC filter PREOP DIAGNOSIS: IVC filter for extensive DVT/removal of IVC filter PLANNED PROCEDRUE: Operation Date: 01/21/21 08:30 Proposed Procedures p IVC Filter Removal 26260 Z95.8(Not Applicable) - Pastor Grimaldo MD 85-year-old female in month of September patient underwent IVC filter placement through common femoral approach for extensive proximal DVT and inability to take anticoagulation. For the last couple of months patient has been tolerating anticoagulation therefore we are planning to remove the IVC filter. It is the reason patient was brought in today. I have detailed discussion with the patient regarding all risk benefit and alternative for the procedure. Patient understand the risk of thromboembolism, pulmonary embolism, laceration, hematoma, bleeding, vascular damage leading to surgery, major bleed and worse case scenario . Patient agreed to it and would like to proceed with it. Medications/Allergies* Home Medications Medication Instructions Recorded Confirmed Type metoprolol tartrate 25 mg PO DAILY 09/19/20 01/21/21 History mupirocin 1 applic TOPICAL BID 09/19/20 01/20/21 History Allergies/Adverse Reactions Allergy/AdvReac Type Severity Reaction Status Date / Time Sulfa (Sulfonamide Allergy Mild Unknown Verified 01/15/21 09:25 Antibiotics) codeine Allergy Unknown Verified 01/15/21 09:25 Iodinated Contrast Media Allergy ALGY-Hives Verified 01/15/21 09:25 Current Medications: Generic Name Dose Route Start Last Admin Trade Name Freq PRN Reason Stop Dose Admin Sodium Chloride 1,000 mls @ 50 mls/hr 01/21/21 07:30 01/21/21 08:21 Sodium Chloride 0.9% IV 01/22/21 03:29 Not Given .Q20H ONE Pertinent History/Comorbid Conditions* Medical History (Updated 01/15/21 @ 10:01 by Ever Melton MD) Anxiety about health Arthritis Chronic kidney disease Chronic steroid use COPD (chronic obstructive pulmonary disease) Degenerative disc disease Enrolled in chronic care management First degree burn of buttock History of DVT of lower extremity Neck and shoulder pain Urinary tract infection with hematuria Surgical History (Updated 10/07/20 @ 15:27 by GERARDO Carpio) H/O arthroscopy H/O hand surgery H/O local excision of skin lesion H/O: hysterectomy History of ankle surgery Hx of cataract surgery Hx of cholecystectomy Family History (Updated 09/19/20 @ 13:13 by Mansoor Evans MD) Heart disease Kidney disease Cancer Hypertension Social History Alcohol intake: never Pertinent Exam Findings alert, oriented x 3 and clear to auscultation bilaterally Conscious Sedation Assessment PATIENT ASSESSED PRIOR TO SEDATION, WITH NO CHANGE NOTED: Yes AIRWAY EVAL/ANESTHESIA PLAN: ASA II, Risks, benefits & alternatives of sedation and/or procedure discussed and Patient agrees to continue as planned Recommendations Surgery/Procedure today Coding Level of Care Code Acute Rn Orthopaedic for Evangelista Britt
--- NOTE | 2021-01-21 10:38 | PC.NURSE ---
recovery received pt from clinical laboratory aide post ivc filter removal. pt alert and oriented x3. pt complains of no pain. dressing on right side of neck clean and dry with no hematoma noted. pt to be monitored per protocol.
== END 2021-01-21 13:24 | disposition home or self-care (01) ==
PROVIDERS: PCP Family Medicine Adult Medicine; Visit Provider Internal Medicine Cardiovascular Disease
PROC: (CPT 37193; principal; 2021-01-21 08:30)
DX: Z45.89 Encounter for adjustment and management of other implanted devices (principal); M19.90 Unspecified osteoarthritis, unspecified site; J44.9 Chronic obstructive pulmonary disease, unspecified; Z79.52 Long term (current) use of systemic steroids; Z86.718 Personal history of other venous thrombosis and embolism; Z82.49 Family history of ischemic heart disease and other diseases of the circulatory system
CPT/HCPCS: 36415; 37193; C1769; C1894; J1200; J1644; J2250; J2920; J3010; J7030; Q0163; Q9967

== ENCOUNTER → 2021-04-15 14:54 | Outpatient (BNVA) | payer MEDICARE, SELFPAY | PROVIDERS: PCP Family Medicine Adult Medicine; Visit Provider Registered Nurse | DX: R52 Pain, unspecified (principal); I10 Essential (primary) hypertension | CPT/HCPCS: 80053; 85025; 85651; 86140; 86431 ==

== ENCOUNTER 2021-06-06 23:07 | Emergency (ER) | payer MEDICARE, SELFPAY ==
[2021-06-06 23:15] VITALS: BP 142/66; PULSE 78; RESP 18; TEMP 36.3; O2SAT 99; BMI 27.7
--- NOTE | 2021-06-06 23:33 | W.ED.EAR ---
HPI - Ear Problem General: Chief complaint: Eye Problems Stated complaint: Ringing Ears\[place] pop in head Time Seen by Provider: 06/06/21 23:11 History of Present Illness: HPI Narrative: Patient is an 85-year-old female who comes to the ED with worsening ringing in her ears. Patient says symptoms started back in September 2020. She says the ringing in ears has continued to get worse. She also reports having balance issues that started back in September 2020 as well. Tonight she felt a pop in her head while she was laying down. Denies any other symptoms. She says the ringing in her ears has gotten louder over the past couple days but no other acute symptoms. Denies any headache or neurological deficits. Associated symptoms: Reports tinnitus; Denies fever(s), headache(s) or neck pain Review of Systems Const: Denies: fever(s), chills or fatigue Eyes: Denies: change in vision or eye discomfort ENMT: Reports: tinnitus; Denies: throat pain, odynophagia, nasal discharge or nasal congestion Card: Denies: chest pain, palpitations, edema, swelling of feet/ankles, dyspnea on exertion or orthopnea Resp: Denies: dyspnea, productive cough or non-productive cough GI: Denies: abdominal pain, nausea, vomiting, diarrhea, constipation or hematochezia : Denies: flank pain, dysuria or hematuria Musc: Denies: neck pain, back pain or extremity swelling Skin/Breast: Denies: rash or new lesions Neuro: Denies: headache(s), numbness in extremities or weakness in extremities PFS ED PFSH: Medical History Anxiety about health Arthritis [place] knees, shoulders, neck and Lumbar spine Bilateral lower extremity edema Chronic steroid use CKD stage G2/A2, GFR 60-89 and albumin creatinine ratio 30-299 mg/g Compression fracture COPD (chronic obstructive pulmonary disease) Degenerative disc disease Enrolled in chronic care management Extensor tendon dislocation, nontraumatic, hand 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 Lumbar compression fracture Obesity (BMI 30-39.9) Urinary tract infection with hematuria Surgical History H/O arthroscopy H/O hand surgery H/O local excision of skin lesion H/O: hysterectomy History of ankle surgery Hx of cataract surgery Hx of cholecystectomy S/P insertion of IVC (inferior vena caval) filter Removed on 01/21/21 Family History Other Cancer Heart disease Hypertension Kidney disease Social History Alcohol intake: never Physical Exam Const: COMMON NORMALS: no acute distress, patient oriented x3 and alert GENERAL APPEARANCE: cooperative and comfortable HENMT: COMMON NORMALS: normocephalic, EAC's normal and TM's normal bilaterally HEAD & SCALP: normocephalic EXTERNAL AUDITORY CANAL: EAC's normal TYMPANIC MEMBRANE: TM's normal bilaterally MOUTH: Normal oral and palatal mucosa present THROAT: posterior oropharynx normal and uvula midline Eye: COMMON NORMALS: Equal, round and reactive pupils present and conjunctivae normal CONJUNCTIVA: Yes conjunctivae normal PUPIL: Yes Equal, round and reactive pupils present Neck/C-Spine: COMMON NORMALS: supple GENERAL: Yes normal visual inspection Resp: COMMON NORMALS: normal respiratory effort, No retractions, No use of accessory muscles and clear to auscultation bilaterally AUSCULTATION: clear to auscultation bilaterally Cardio: COMMON NORMALS: regular rate, regular rhythm, S1 normal heart sound present, S2 normal heart sound present, No gallops present (Cardio), No clicks present (Cardio), No murmurs present (Cardio) and Peripheral pulses 2+ throughout RATE: regular rate RHYTHM: regular rhythm HEART SOUNDS: S1 normal heart sound present and S2 normal heart sound present PERIPHERAL PULSES: Peripheral pulses 2+ throughout GI: COMMON NORMALS: Normal to inspection, nondistended, normoactive bowel sounds present, Soft to palpation, non-tender and no masses PALPATION: Yes Soft to palpation : COMMON NORMALS: Yes no CVA tenderness BLADDER/KIDNEY EXAM: Yes no CVA tenderness Back/Pelvis: COMMON NORMALS: no CVA tenderness Extremity: COMMON NORMALS: normal to inspection Neuro: COMMON NORMALS: patient oriented x3, CN's II-XII intact bilaterally, moves all extremities, no focal motor deficits and no sensory deficits noted SENSORIUM/ORIENTATION: Yes alert SENSORY EXAM: Yes extremities (intact) MOTOR EXAM: 5/5 motor strength present throughout Skin: GENERAL SKIN EXAM: dry skin Course Vital Signs: Vital signs: Vital Signs Temperature 97.3 F L 06/06/21 23:15 Pulse Rate 97 06/06/21 23:59 Respiratory Rate 17 06/06/21 23:59 Blood Pressure 142/66 06/06/21 23:15 Pulse Oximetry 98 06/06/21 23:59 MDM - Ear MDM Narrative: Medical decision making narrative: Patient is an 85-year-old female comes to the ED with tinnitus. She has been having the symptoms now for close to a year. Denies any headache, neuro deficits. Vitals stable. Exam is benign. CT of head shows no acute findings. Patient diagnosed tinnitus and told to follow-up with PCP 5 to 7 days for reevaluation. I told patient to talk with PCP about being referred to an water reuse program manager for further evaluation and treatment of tinnitus. Return to ED precautions given. Patient understood and agree with plan. Imaging Data^: CT Head: Attestation: I personally reviewed and interpreted this imaging study as follows: Radiologist's impression: [address] [address] [address] Scan Report Signed Patient: Brady Nails Unit #: [id number] : 1935 Age/Sex: 85 / F ADM Date: 06/06/21 Loc: ER Room/Bed: Attending Dr: Ordering Provider/Ordering MD: Cole Estevez Date of Service: 06/06/21 Procedure(s): CT head wo con* [id number] Accession Number(s): [id number] Report Number: [id number] PROCEDURE INFORMATION: Exam: CT Head Without Contrast Exam date and time: 06/06/2021 11:43 PM Age: 85 years old Clinical indication: Walking, difficulty; Patient HX: Patient states she has been having worsening ringing in ears and felt a pop in her head when she went to lay down last night. Also C/O of balance issues. ; Additional info: Ringing in her ears. [place] a pop in head tonight TECHNIQUE: Imaging protocol: Computed tomography of the head without contrast. Radiation optimization: All CT scans at this facility use at least one of these dose optimization techniques: automated exposure control; mA and/or kV adjustment per patient size (includes targeted exams where dose is matched to clinical indication); or iterative reconstruction. COMPARISON: CT head wo con* [id number] 07/13/2020 4:50 PM RADIATION DOSE METRICS: Total DLP (mGy-cm): 689.77 FINDINGS: Brain: Age related parenchymal volume loss noted. No hemorrhage. No significant white matter disease. No edema. Cerebral ventricles: No ventriculomegaly. Paranasal sinuses: Visualized sinuses are unremarkable. No fluid levels. Mastoid air cells: Unremarkable as visualized. No mastoid effusion. Bones/joints: Unremarkable. No acute fracture. Soft tissues: Unremarkable. CT/CT head wo con* [id number] IMPRESSION: 1. No acute intracranial abnormality demonstrated. 2. There is no interval change from the prior examination. Dictated By: Drake Ramos MD Signed By: Drake Ramos MD Signed Date/Time: 06/07/21 0034 DD/ 2343 Discharge Plan Discharge Patient Disposition: Home Clinical Impression: Tinnitus of both ears Condition: Stable Prescriptions: No Action fluticasone propion-salmeterol [Advair Diskus] 250-50 mcg/dose blister with device 1 inh inhalation BID Qty: 1 RF: 2 Eliquis 5 mg tablet 5 mg PO BID Qty: 60 RF: 5 tramadol 50 mg tablet 50 mg PO Q8H PRN (Reason: back compression fracture pain) Qty: 90 RF: 1 albuterol sulfate [ProAir HFA] 90 mcg/actuation HFA aerosol inhaler 1 inh inhalation QID Qty: 8.5 RF: 1 fluticasone propionate [Flonase Allergy Relief] 50 mcg/actuation spray,suspension 1 spray intranasal BID Qty: 16 RF: 0 levocetirizine [Xyzal] 5 mg tablet 5 mg PO DAILY 30 Days Qty: 30 RF: 0 budesonide [Rhinocort Allergy] 32 mcg/actuation spray,non-aerosol 2 spray intranasal DAILY Qty: 8.43 RF: 0 cephalexin 500 mg capsule 500 mg PO BID 7 Days Qty: 14 RF: 0 (DME) Bedrail See Rx Instructions .Route .MEDSUPPLY Qty: 1 RF: 0 metoprolol tartrate 25 mg tablet See Rx Instructions .ROUTE .COMPLEX Qty: 90 RF: 0 Discharge Orders: Discharge ED (Routine); Ordered 06/07/21 Ordered By: Cole Estevez Referrals: Swati Lindo FNP [Primary Care Provider] - Discharge Diet: Regular Discharge Activity: Increase activity as tolerated Patient Instructions: Tinnitus (ED) Activity Restrictions/Additional Instructions: Follow-up with medical provider as directed and 5 to 7 days for reevaluation. talk with your PCP about being referred to an water reuse program manager for further evaluation. Continue taking all home medications as previously prescribed. Return to the ER or your medical provider if condition worsens. Please read and understand discharge instructions. Thank you for choosing [facility] for your healthcare needs today. Please realize this is an emergency room and that we are providing you with a medical screening exam and this may not be complete and all inclusive of all the testing and or work up that you may need to determine your ailment or severity of your illness. It is very important that you follow up as instructed or that you return to the Emergency Department should you have concerns or if your condition changes or worsens in any way. Coding Level of Care Code ED Construction Ironworker Helper for Evangelista Britt Exam Comprehensive
--- NOTE | 2021-06-06 23:43 | CTR_ITS ---
PROCEDURE INFORMATION: Exam: CT Head Without Contrast Exam date and time: 06/06/2021 11:43 PM Age: 85 years old Clinical indication: Walking, difficulty; Patient HX: Patient states she has been having worsening ringing in ears and felt a pop in her head when she went to lay down last night. Also C/O of balance issues. ; Additional info: Ringing in her ears. [place] a pop in head tonight TECHNIQUE: Imaging protocol: Computed tomography of the head without contrast. Radiation optimization: All CT scans at this facility use at least one of these dose optimization techniques: automated exposure control; mA and/or kV adjustment per patient size (includes targeted exams where dose is matched to clinical indication); or iterative reconstruction. COMPARISON: CT head wo con* [id number] 07/13/2020 4:50 PM RADIATION DOSE METRICS: Total DLP (mGy-cm): 689.77 FINDINGS: Brain: Age related parenchymal volume loss noted. No hemorrhage. No significant white matter disease. No edema. Cerebral ventricles: No ventriculomegaly. Paranasal sinuses: Visualized sinuses are unremarkable. No fluid levels. Mastoid air cells: Unremarkable as visualized. No mastoid effusion. Bones/joints: Unremarkable. No acute fracture. Soft tissues: Unremarkable. CT/CT head wo con* [id number] IMPRESSION: 1. No acute intracranial abnormality demonstrated. 2. There is no interval change from the prior examination.
[2021-06-06 23:59] VITALS: PULSE 97; RESP 17; O2SAT 98
== END 2021-06-07 01:08 | disposition home or self-care (01) ==
PROVIDERS: Emergency Provider Physician Assistant; PCP Registered Nurse
DX: H93.13 Tinnitus, bilateral (principal); Z79.01 Long term (current) use of anticoagulants; N18.2 Chronic kidney disease, stage 2 (mild); J44.9 Chronic obstructive pulmonary disease, unspecified; Z86.718 Personal history of other venous thrombosis and embolism
CPT/HCPCS: 70450; 99283

== ENCOUNTER → 2021-12-15 15:54 | Outpatient (BNVA) | payer MEDICARE, SELFPAY | PROVIDERS: Visit Provider Nurse Practitioner Family | DX: N39.0 Urinary tract infection, site not specified (principal); R39.9 Unspecified symptoms and signs involving the genitourinary system | CPT/HCPCS: 81000 ==

== ENCOUNTER → 2022-02-22 14:27 | Outpatient (BNVA) | payer MEDICARE, SELFPAY | PROVIDERS: Visit Provider Registered Nurse | DX: R30.0 Dysuria (principal); M19.90 Unspecified osteoarthritis, unspecified site; J44.1 Chronic obstructive pulmonary disease with (acute) exacerbation; J06.9 Acute upper respiratory infection, unspecified; B37.2 Candidiasis of skin and nail | CPT/HCPCS: 81000 ==

== ENCOUNTER → 2022-04-15 14:55 | Outpatient (BNVA) | payer MEDICARE, SELFPAY | PROVIDERS: Visit Provider Nurse Practitioner Family | DX: R39.9 Unspecified symptoms and signs involving the genitourinary system (principal) | CPT/HCPCS: 81000 ==

== ENCOUNTER → 2022-05-23 08:47 | Outpatient (BNVA) | payer MEDICARE, SELFPAY | PROVIDERS: PCP Nurse Practitioner Family; Visit Provider Registered Nurse | DX: R05.9 Cough, unspecified (principal); M19.90 Unspecified osteoarthritis, unspecified site; J10.1 Influenza due to other identified influenza virus with other respiratory manifestations | CPT/HCPCS: 87400 ==

== ENCOUNTER 2023-04-17 19:23 | Emergency (ER) | payer MEDICARE, SELFPAY ==
--- NOTE | 2023-04-17 19:26 | XRR_ITS ---
PROCEDURE INFORMATION: Exam: XR Chest Exam date and time: 04/17/2023 8:00 PM Age: 87 years old Clinical indication: Pain; Chest pressure; Additional info: Cp TECHNIQUE: Imaging protocol: Radiologic exam of the chest. Views: 1 view. COMPARISON: CR XR chest 2V* [id number] 09/19/2020 2:43 PM FINDINGS: Lungs: Lungs are unremarkable. Pleural spaces: No pneumothorax and no evident pleural fluid. Heart/Mediastinum: See Vasculature finding. Vasculature: Aortic calcifications are noted. Mediastinal width and heart size are within normal limits. Bones/joints: No acute findings. XR/XR chest 1V portable [id number] IMPRESSION: No acute findings.
--- NOTE | 2023-04-17 19:26 | ECG_ITS ---
[facility] Test Date: 2023-04-17 Pat Name: Brady Nails Department: Room: Gender: Female Instructional Supervisor: : 1935 Requested By: Suraj Sal Order Number: [id number] Estefani MD: Natalie Rea M.D. Measurements Intervals [place] Rate: 79 P: 70 NE: 122 QRS: 60 QRSD: 86 T: 48 QT: 356 QTc: 408 Interpretive Statements SINUS RHYTHM Compared to ECG 07/13/2020 14:58:37 No significant changes Electronically Signed On 04-18-2023 1:50:06 CASE MANAGEMENT ASSISTANT by Natalie Rea M.D. [email or web address]
[2023-04-17 19:33] VITALS: BP 134/58; PULSE 77; RESP 18; TEMP 36.6; O2SAT 98; BMI 28.5
--- NOTE | 2023-04-17 19:48 | W.ED.CHESTPA ---
HPI - Chest Pain General: Chief Complaint: Chest Pain Stated Complaint: Chest pain Time Seen by Provider: 04/17/23 19:36 Source: patient Mode of arrival: ambulatory History of Present Illness: 87-year-old female presents emergency room complaining intermittent chest pain this been going on for couple months she had a full work-up in [place] and seen recruiting assistant ultimately they recommended that she have an echo and an angiogram done she really did not want to get this done so she has not followed through. She has a history of atrial fibrillation she has not any rapid heart rates recently. She is not having any chest pain at this time she attends the appointment with her granddaughter with her. She intermittently gets chest pain sometimes associated activity other times spontaneously. No known history of coronary artery disease. She does have a history of previous DVT although she is not on any anticoagulants at this time. She has a history of inferior vena cava filter and COPD. MD complaint: chest pain Onset (ago): month(s) Timing of current episode: episodic Prior episodes: Yes Onset: during rest and during exertion Pain location: left chest Pain radiation: none Quality: aching and heaviness Associated symptoms: Deny abdominal pain, diaphoresis, dyspnea, fever(s), leg edema, nausea, palpitations, sense of impending doom, syncope or vomiting Review of Systems Const: Denies: fever(s), chills, fatigue, malaise or diaphoresis Card: Reports: chest pain; Denies: palpitations or syncope Resp: Denies: dyspnea GI: Denies: abdominal pain, nausea or vomiting : Denies: dysuria, urinary frequency or urinary urgency Musc: Denies: neck pain or back pain Skin/Breast: Denies: rash PFSH ED PFSH: Medical History (Updated 04/17/23 @ 20:57 by Brian Denney DO) Anxiety about health Arthritis [place] knees, shoulders, neck and Lumbar spine Bilateral lower extremity edema Chronic steroid use CKD stage G2/A2, GFR 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 and albumin creatinine ratio 30-299 mg/g Compression fracture COPD (chronic obstructive pulmonary disease) Degenerative disc disease Enrolled in chronic care management Extensor tendon dislocation, nontraumatic, hand 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 Lumbar compression fracture Obesity (BMI 30-39.9) Urinary tract infection with hematuria Surgical History (Updated 04/17/23 @ 20:57 by Brian Denney, ) H/O arthroscopy H/O hand surgery H/O local excision of skin lesion H/O: hysterectomy History of ankle surgery Hx of cataract surgery Hx of cholecystectomy S/P insertion of IVC (inferior vena caval) filter Removed on 01/21/21 Family History Other Cancer Heart disease Hypertension Kidney disease Social History Smoking and tobacco/nicotine status: never used tobacco/nicotine Alcohol intake: never Substance/Drug Use: never Adopted: No Caregiver/support person: No Lives independently: Yes service: No Current occupational status: employed Do you think of yourself as: Straight/Heterosexual Current gender identity: Female Physical Exam Const: COMMON NORMALS: no acute distress GENERAL APPEARANCE: cooperative and comfortable ORIENTATION/CONSCIOUSNESS: Yes awake, Yes oriented to person, Yes oriented to place and Yes oriented to time HENMT: COMMON NORMALS: normocephalic, atraumatic and hearing grossly normal bilaterally HEAD & SCALP: normocephalic and atraumatic Resp: COMMON NORMALS: normal respiratory effort, No retractions, No use of accessory muscles and clear to auscultation bilaterally AUSCULTATION: clear to auscultation bilaterally Cardio: COMMON NORMALS: regular rate, regular rhythm and No murmurs present (Cardio) RATE: regular rate RHYTHM: regular rhythm GI: COMMON NORMALS: Soft to palpation and No hepatosplenomegaly present AUSCULTATION: Yes normoactive bowel sounds PALPATION: Yes Soft to palpation, No Tenderness to palpation present (GI), No Guarding due to palpation present (GI) and Yes No hepatosplenomegaly present Extremity: COMMON NORMALS: normal to inspection, capillary refill normal, no clubbing, cyanosis or edema, no calf tenderness and no pedal edema Neuro: SENSORIUM/ORIENTATION: Yes oriented to person, Yes oriented to place and Yes oriented to time Skin: COMMON NORMALS: no rashes or lesions noted GENERAL SKIN EXAM: no rashes or lesions noted Course Vital Signs: Vital signs: Vital Signs Temperature 98 F 04/17/23 19:33 Pulse Rate 79 04/17/23 20:20 Respiratory Rate 18 04/17/23 19:33 Blood Pressure 124/52 04/17/23 20:20 Pulse Oximetry 97 04/17/23 20:20 Oxygen Delivery Me thod Room Air 04/17/23 20:20 MDM - Chest Pain Medical Decision Making Patient is intermittently had chest pain for several months now . No history of migraines in the past.. Troponin and EKG did not show any acute changes. Encourage patient to start baby aspirin daily for stroke as needed for recurrent episodes of chest pain is not having any chest pain now. Has previously had full cardiology work-up in [place] recommended angiography at this point recommended she follow through with that. Reviewed with her and her family member at the bedside most available evaluation done in the emergency room is oriented towards determining whether or not more advanced work-up is needed such as an angiography. Since this is already been determined and she is not currently having chest pain at this point there is nothing more to add and recommend that she follow-up with her recruiting assistant for the angiography as recommended. Medical Records I reviewed the patient's medical records. Lab Data I reviewed the patient's lab results. 04/17/23 19:37 04/17/23 19:37 Radiology Impressions Chest X-Ray 04/17/23 19:26 IMPRESSION: No acute findings. Laboratory Results WBC 7.19 10^3/uL (3.29-11.43) 04/17/23 19:37 RBC 3.90 10^6/uL (3.85-5.65) 04/17/23 19:37 Hgb 12.10 g/dL (11.27-16.99) 04/17/23 19:37 Hct 40.8 % (36-47) 04/17/23 19:37 MCV 104.6 fl (85-98) H 04/17/23 19:37 MCH 31.0 pg (27-33) 04/17/23 19:37 MCHC 29.7 g/dL (30-55) L 04/17/23 19:37 RDW 13.1 % (12.1-15.1) 04/17/23 19:37 Plt Count 178 10^3/cmm (157-399) 04/17/23 19:37 MPV 10.2 fL (7.4-10.4) 04/17/23 19:37 Neut % (Auto) 67.2 % 04/17/23 19:37 Lymph % (Auto) 21.0 % 04/17/23 19:37 [place] % (Auto) 9.3 % 04/17/23 19:37 Eos % (Auto) 1.5 % 04/17/23 19:37 Baso % (Auto) 0.6 % 04/17/23 19:37 Neut # (Auto) 4.83 10^3/uL (1.8-7.7) 04/17/23 19:37 Lymph # (Auto) 1.5 10^3/uL (0.8-4.8) 04/17/23 19:37 [place] # (Auto) 0.7 10^3/uL (0.2-0.9) 04/17/23 19:37 Eos # (Auto) 0.1 10^3/uL (0.0-0.8) 04/17/23 19:37 Baso # (Auto) 0.0 10^3/uL (0.0-0.1) 04/17/23 19:37 Nucleated RBC % (auto) 0 % 04/17/23 19:37 Nucleated RBCs # 0.0 /100WBC 04/17/23 19:37 Sodium 142 mmol/L (136-145) 04/17/23 19:37 Potassium 4.4 mmol/L (3.5-5.1) 04/17/23 19:37 Chloride 107 mmol/L (98-107) 04/17/23 19:37 Carbon Dioxide 28 mmol/L (22-29) 04/17/23 19:37 Anion Gap 11.4 (5-19) 04/17/23 19:37 BUN 26 mg/dL (8-23) H 04/17/23 19:37 Creatinine 1.0 mg/dL (0.5-0.9) H 04/17/23 19:37 GFR Calculation Not Reportable 04/17/23 19:37 Glucose 88 mg/dL (65-115) 04/17/23 19:37 Calculated Osmolality 298 mOsm/kg (285-295) H 04/17/23 19:37 Calcium 8.1 mg/dL (8.5-10.5) L 04/17/23 19:37 Total Bilirubin 0.2 mg/dL (0.15-1.2) 04/17/23 19:37 AST 17 U/L (0-32) 04/17/23 19:37 ALT 17 U/L (0-33) 04/17/23 19:37 Alkaline Phosphatase 86 U/L (35-105) 04/17/23 19:37 Troponin T Baseline 12 ng/L (0-10) H 04/17/23 19:37 Total Protein 5.3 g/dL (6.6-8.7) L 04/17/23 19:37 Albumin 3.4 g/dL (3.5-5.2) L 04/17/23 19:37 Globulin 1.9 g/dL (1.3-4.6) 04/17/23 19:37 Lipase 31 U/L (13-60) 04/17/23 19:37 All radiology interpretation(s) finalized by discharge Discharge Plan Discharge Patient Disposition: Home Clinical Impression: Chest pain, CKD stage G2/A2, GFR 60-89 and albumin creatinine ratio 30-299 mg/g, S/P insertion of IVC (inferior vena caval) filter, History of DVT of lower extremity Condition: Stable Prescriptions: New aspirin 81 mg tablet,delayed release (DR/EC) 81 mg PO DAILY Qty: 30 0RF nitroglycerin 0.4 mg tablet, sublingual 0.4 mg sublingual Q5M PRN (Reason: chest pain) Qty: 20 0RF Rx Instructions: do not exceed 3 doses per episode No Action albuterol sulfate [ProAir HFA] 90 mcg/actuation HFA aerosol inhaler 1 inh inhalation QID Qty: 8.5 1RF Rx Instructions: 340B may sub ventolin fluticasone propionate 50 mcg/actuation spray,suspension 1 spray intranasal BID Qty: 16 1RF Rx Instructions: administer into each nostril chlorthalidone 25 mg tablet 25 mg PO DAILY Qty: 30 3RF fluticasone propion-salmeterol [Advair Diskus] 500-50 mcg/dose blister with device 1 inh inhalation Q12H Qty: 1 0RF (DME) Bedrail See Rx Instructions .Route .MEDSUPPLY Qty: 1 0RF Rx Instructions: As directed tramadol 50 mg tablet 50 mg PO BID PRN (Reason: pain) 30 Days Qty: 45 2RF prednisone 10 mg tablet 10 mg PO BID 10 Days Qty: 20 0RF Discharge Orders: Discharge ED (Routine); Ordered 04/17/23 Ordered By: Brian Denney Referrals: Josh Monk FNP [Primary Care Provider] - Discharge Diet: Usual diet Discharge Activity: Limit activity as instructed Patient Instructions: Opioid Safety, Pain Management Activity Restrictions/Additional Instructions: Thank you for choosing [facility] for your healthcare needs today. Please realize this is an emergency room and that we are providing you with a medical screening exam and this may not be complete and all inclusive of all the testing and or work up that you may need to determine your ailment or severity of your illness. It is very important that you follow up as instructed or that you return to the Emergency Department should you have concerns or if your condition changes or worsens in any way. You are seen in the emergency room today for chest pain recommended that you follow-up with your recruiting assistant as previously advised for echocardiogram and angiogram. Start baby aspirin daily. Also recommend that you sublingual nitro if you have recurrent episodes of chest pain if they do not improve with the sublingual nitro return to the emergency room immediately. Coding Level of Care Code ED Parliamentary Counsel for Evangelista Britt
[2023-04-17 19:59] LABS: Basophils % 0.6 %; Eosinophils # 0.1 10^3/uL (0.0-0.8); Eosinophils % 1.5 %; Hematocrit 40.8 % (36-47); Lymphocytes # 1.5 10^3/uL (0.8-4.8); Mean Corpuscular HGB Conc 29.7 g/dL (30-55); Mean Corpuscular Volume 104.6 fl (85-98); Mean Platelet Volume 10.2 fL (7.4-10.4); Monocytes # 0.7 10^3/uL (0.2-0.9); Monocytes % 9.3 %; Neutrophils # 4.83 10^3/uL (1.8-7.7); Neutrophils % 67.2 %; Nucleated Red Blood Cells % 0 %; Platelet Count 178 10^3/cmm (157-399); Red Cell Distribution Width 13.1 % (12.1-15.1); White Blood Count 7.19 10^3/uL (3.29-11.43)
[2023-04-17 20:15] LABS: Troponin(5th) Baseline 12 ng/L (0-10)
[2023-04-17 20:20] VITALS: BP 124/52; PULSE 79; O2SAT 97
[2023-04-17 20:27] LABS: Alanine Aminotransferase 17 U/L (0-33); Albumin Level 3.4 g/dL (3.5-5.2); Alkaline Phosphatase 86 U/L (35-105); Anion Gap 11.4 (5-19); Aspartate Amino Transferase 17 U/L (0-32); Blood Urea Nitrogen 26 mg/dL (8-23); Calcium 8.1 mg/dL (8.5-10.5); Carbon Dioxide 28 mmol/L (22-29); Chloride 107 mmol/L (98-107); Globulin 1.9 g/dL (1.3-4.6); Glucose 88 mg/dL (65-115); Lipase 31 U/L (13-60); Osmolality Calculated 298 mOsm/kg (285-295); Potassium 4.4 mmol/L (3.5-5.1); Sodium 142 mmol/L (136-145); Total Bilirubin 0.2 mg/dL (0.15-1.2); Total Protein 5.3 g/dL (6.6-8.7)
== END 2023-04-17 21:21 | disposition home or self-care (01) ==
PROVIDERS: Emergency Medicine; Emergency Provider Family Medicine; PCP Nurse Practitioner Family
DX: R07.9 Chest pain, unspecified (principal); N18.2 Chronic kidney disease, stage 2 (mild); J44.9 Chronic obstructive pulmonary disease, unspecified; Z98.890 Other specified postprocedural states; Z86.718 Personal history of other venous thrombosis and embolism
CPT/HCPCS: 71045; 80053; 83690; 84484; 85025; 93005; 99285

== ENCOUNTER 2023-06-08 14:51 | Observation (INO) | payer MEDICARE, SELFPAY ==
[2023-06-08] VITALS (18 sets, daily range): BP systolic 110–140; BP diastolic 39–84; PULSE 59–87; RESP 14–25; TEMP 36.4–36.5; O2SAT 92–100; BMI 31.4
--- NOTE | 2023-06-08 15:06 | XR_ITS ---
WS: [id number] Chest with right rib detail, 4 views, 06/08/2023 Clinical Data: injury Comparison: Portable chest, 04/17/2023 Findings: The lungs show no nodules, masses, or effusions. The heart is normal. No pneumonia or pneumothorax is seen. The aortic arch and descending thoracic aorta show calcification. There is a patchy opacity at the le ft cardiophrenic angle which probably represents scarring and has not changed. The patient's clothing obscures only minimal detail. There are questionable small fracture of the anterior aspects of the right fifth and sixth ribs. No d isplacement is seen. There is no subcutaneous emphysema. Impression: 1. No acute cardiopulmonary disease. 2. Possible cortical fractures of the anterior aspects of the right fifth and sixth ribs.
--- NOTE | 2023-06-08 15:06 | CTR_ITS ---
PROCEDURE INFORMATION: Exam: CT Head Without Contrast Exam date and time: 06/08/2023 3:49 PM Age: 87 years old Clinical indication: Injury or trauma; Fall; Blunt trauma (contusions or hematomas) TECHNIQUE: Imaging protocol: Computed tomography of the head without contrast. Radiation optimization: All CT scans at this facility use at least one of these dose optimization techniques: automated exposure control; mA and/or kV adjustment per patient size (includes targeted exams where dose is matched to clinical indication); or iterative reconstruction. COMPARISON: CT head wo con* [id number] 06/07/2021 12:12 AM RADIATION DOSE METRICS: Total DLP (mGy-cm): 973 FINDINGS: Brain: No hemorrhage. No edema. No significant white matter disease. No mass effect. Cerebral ventricles: No ventriculomegaly. Paranasal sinuses: Visualized sinuses are unremarkable. No fluid levels. Mastoid air cells: Visualized mastoid air cells are well aerated. Bones/joints: Unremarkable. No acute fracture. Soft tissues: Unremarkable. CT/CT head wo con* [id number] IMPRESSION: No acute intracranial abnormality.
--- NOTE | 2023-06-08 15:09 | ED_ITS ---
HPI - SOB/Dyspnea 2 General: Chief Complaint: Shortness of Breath/Dyspnea Stated Complaint: N/V, dizzy, Fell Time Seen by Provider: 06/08/23 15:02 Source: patient Mode of arrival: ambulatory Limitations: no limitations History of Present Illness: HPI Narrative: 87-year-old female states she had had a fall 2 days ago. States she had fell and landed on the cement block with her right ribs. She states been having very sharp pains in her right ribs and thinks she may have broke her rib causing her some dyspnea. States this morning at 5 AM she did start having some nausea and became dizzy. She denies any headache denies hitting her head. Associated symptoms: Reports chest pain, dizziness and nausea; Deny abdominal pain, fever(s) or vomiting Review of Systems 2 Const: Denies: fever(s), chills, body aches or change in appetite Eyes: Denies: blurry vision or eye discomfort ENMT: Denies: throat pain or dental pain Card: Reports: chest pain Resp: Reports: dyspnea GI: Reports: nausea; Denies: abdominal pain, vomiting or diarrhea : Denies: dysuria Musc: Denies: neck pain or back pain Skin/Breast: Denies: rash Neuro: Reports: dizziness; Denies: headache(s) PFSH ED 2 PFSH: Medical History Hx of atrial fibrillation without current medication Allergic rhinitis Obesity (BMI 30-39.9) (~04/20/23) CKD stage G2/A2, GFR 60-89 and albumin creatinine ratio 30-299 mg/g Lumbar compression fracture Anxiety about health Insomnia due to medical condition Extensor tendon dislocation, nontraumatic, hand History of DVT of lower extremity Enrolled in chronic care management Degenerative disc disease Chronic steroid use Compression fracture Urinary tract infection with hematuria Arthritis [place] knees, shoulders, neck and Lumbar spine Bilateral lower extremity edema COPD (chronic obstructive pulmonary disease) Surgical History S/P insertion of IVC (inferior vena caval) filter Removed on 01/21/21 Hx of cataract surgery H/O local excision of skin lesion H/O hand surgery History of ankle surgery H/O arthroscopy Hx of cholecystectomy H/O: hysterectomy Family History Other Cancer Heart disease Hypertension Kidney disease Social History Smoking and tobacco/nicotine status: never used tobacco/nicotine Alcohol intake: never Substance/Drug Use: never Adopted: No Caregiver/support person: No Lives independently: Yes service: No Current occupational status: employed Do you think of yourself as: Straight/Heterosexual Current gender identity: Female Physical Exam 2 Const: COMMON NORMALS: no acute distress, patient oriented x3 and healthy appearing HENMT: COMMON NORMALS: normocephalic and atraumatic HEAD & SCALP: n ormocephalic and atraumatic Eye: COMMON NORMALS: Equal, round and reactive pupils present and EOMs intact bilaterally PUPIL: Yes Equal, round and reactive pupils present Neck/C-Spine: COMMON NORMALS: full ROM and supple Chest: COMMONS NORMALS: normal inspection of the chest OTHER: Tenderness over right ribs Resp: COMMON NORMALS: normal respiratory effort, No retractions, No use of accessory muscles and clear to auscultation bilaterally AUSCULTATION: clear to auscultation bilaterally Cardio: COMMON NORMALS: regular rate, regular rhythm and No murmurs present (Cardio) RATE: regular rate RHYTHM: regular rhythm GI: COMMON NORMALS: Normal to inspection, nondistended, normoactive bowel sounds present, Soft to palpation, non-tender and no masses PALPATION: Yes Soft to palpation Extremity: COMMON NORMALS: normal to inspection and full ROM Neuro: COMMON NORMALS: patient oriented x3, moves all extremities and no focal motor deficits SPEECH: speech normal MOTOR EXAM: 5/5 motor strength present throughout Psych: COMMON NORMALS: mental status grossly normal, Normal thought process present and cooperative THOUGHT PROCESS: Normal thought process present Skin: COMMON NORMALS: no rashes or lesions noted and no wounds GENERAL SKIN EXAM: no rashes or lesions noted Course 2 Vital Signs: Vital signs: Vital Signs Temperature 97.6 F 06/08/23 14:57 Pulse Rate 77 06/08/23 16:48 Respiratory Rate 21 H 06/08/23 16:48 Blood Pressure 127/50 06/08/23 16:48 Pulse Oximetry 99 06/08/23 16:48 Oxygen Delivery Me thod Nasal Cannula 06/08/23 16:48 Oxygen Flow Rate 2 06/08/23 16:48 MDM - SOB/Dyspnea Medical Decision Making Patient presents with dizziness that began when she woke up at 5 AM she went to bed at 1 AM so last known normal was 1 AM. She is continue to have dizziness here and was quite ataxic when she tried to ambulate here. Head CT is normal she did have a recent fall 2 days ago had rib fractures noted on the x-ray. spoke to hospitalists and he will admit Medical Records I reviewed the patient's medical records. Lab Data I reviewed the patient's lab results. 06/08/23 15:15 06/08/23 15:15 Labs/Radiology: Radiology Impressions Head CT 06/08/23 15:06 IMPRESSION: No acute intracranial abnormality. Laboratory Results WBC 5.20 10^3/uL (3.29-11.43) 06/08/23 15:15 RBC 3.94 10^6/uL (3.85-5.65) 06/08/23 15:15 Hgb 12.40 g/dL (11.27-16.99) 06/08/23 15:15 Hct 40.9 % (36-47) 06/08/23 15:15 MCV 103.8 fl (85-98) H 06/08/23 15:15 MCH 31.5 pg (27-33) 06/08/23 15:15 MCHC 30.3 g/dL (30-55) 06/08/23 15:15 RDW 12.4 % (12.1-15.1) 06/08/23 15:15 Plt Count 182 10^3/cmm (157-399) 06/08/23 15:15 MPV 10.1 fL (7.4-10.4) 06/08/23 15:15 Neut % (Auto) 56.9 % 06/08/23 15:15 Lymph % (Auto) 27.9 % 06/08/23 15:15 [place] % (Auto) 11.3 % 06/08/23 15:15 Eos % (Auto) 2.5 % 06/08/23 15:15 Baso % (Auto) 1.0 % 06/08/23 15:15 Neut # (Auto) 2.96 10^3/uL (1.8-7.7) 06/08/23 15:15 Lymph # (Auto) 1.5 10^3/uL (0.8-4.8) 06/08/23 15:15 [place] # (Auto) 0.6 10^3/uL (0.2-0.9) 06/08/23 15:15 Eos # (Auto) 0.1 10^3/uL (0.0-0.8) 06/08/23 15:15 Baso # (Auto) 0.1 10^3/uL (0.0-0.1) 06/08/23 15:15 Nucleated RBC % (auto) 0 % 06/08/23 15:15 Nucleated RBCs # 0.0 /100WBC 06/08/23 15:15 PT 13.30 SECONDS (12.1-14.9) 06/08/23 15:15 INR 0.98 (0.8-1.2) 06/08/23 15:15 Sodium 140 mmol/L (136-145) 06/08/23 15:15 Potassium 4.2 mmol/L (3.5-5.1) 06/08/23 15:15 Chloride 105 mmol/L (98-107) 06/08/23 15:15 Carbon Dioxide 30 mmol/L (22-29) H 06/08/23 15:15 Anion Gap 9.2 (5-19) 06/08/23 15:15 BUN 20 mg/dL (8-23) 06/08/23 15:15 Creatinine 0.8 mg/dL (0.5-0.9) 06/08/23 15:15 GFR Calculation Not Reportable 06/08/23 15:15 Glucose 67 mg/dL (65-115) 06/08/23 15:15 Calculated Osmolality 291 mOsm/kg (285-295) 06/08/23 15:15 Calcium 8.6 mg/dL (8.5-10.5) 06/08/23 15:15 Total Bilirubin 0.4 mg/dL (0.15-1.2) 06/08/23 15:15 AST 20 U/L (0-32) 06/08/23 15:15 ALT 16 U/L (0-33) 06/08/23 15:15 Alkaline Phosphatase 71 U/L (35-105) 06/08/23 15:15 Total Protein 6.1 g/dL (6.6-8.7) L 06/08/23 15:15 Albumin 3.5 g/dL (3.5-5.2) 06/08/23 15:15 Globulin 2.6 g/dL (1.3-4.6) 06/08/23 15:15 All radiology interpretation(s) finalized by discharge EKG Data EKG 1: I personally reviewed and interpreted this EKG as follows: EKG Interpretation Date: 06/08/23 EKG interpretation time: 15:13 Interpretation: nsr hr [address] or twave abnormalities qrs 69 qtc 393 Discharge Plan Discharge Patient Disposition: Placed in Observation Clinical Impression: Dizziness, Fall, Right rib fracture Condition: Stable Prescriptions: No Action trazodone 50 mg tablet 25 mg PO DAILY tramadol 50 mg tablet 50 mg PO BID PRN (Reason: pain) 30 Days Qty: 60 2RF fluticasone propionate 50 mcg/actuation spray,suspension 1 spray intranasal BID Qty: 16 1RF Rx Instructions: administer into each nostril fluticasone propion-salmeterol [Advair Diskus] 500-50 mcg/dose blister with device 1 inh inhalation Q12H Qty: 1 0RF (DME) Bedrail See Rx Instructions .Route .MEDSUPPLY Qty: 1 0RF Rx Instructions: As directed meclizine 25 mg tablet 25 mg PO TID PRN (Reason: Dizziness) omeprazole 20 mg capsule,delayed release(DR/EC) 20 mg PO DAILY metoprolol succinate 25 mg tablet extended release 24 hr 25 mg PO DAILY ProAir HFA 90 mcg/actuation HFA aerosol inhaler 1 inh inhalation QID PRN (Reason: Shortness Of Breath) Rx Instructions: 340B may sub ventolin aspirin 81 mg tablet,delayed release (DR/EC) 81 mg PO DAILY Qty: 30 0RF nitroglycerin 0.4 mg tablet, sublingual 0.4 mg sublingual Q5M PRN (Reason: chest pain) Qty: 20 0RF Rx Instructions: do not exceed 3 doses per episode Referrals: Josh Monk FNP [Primary Care Provider] - Coding Level of Care Code ED Blood Typer for Violetag Lorenza
--- NOTE | 2023-06-08 15:09 | XR_ITS ---
WS: [id number] Right hip, AP and frog-leg views, 06/08/2023 Clinical Data: injury Comparison: None. Findings: No fractures or dislocations are seen. The right hip shows no erosion. There is slight narrowing with a small acetabular lip. The right femoral head shows a normal spherical shape.. The soft tissues are not remarkable. The adjacent pelvis is normal. Impression: Negative for right hip fracture.
--- NOTE | 2023-06-08 15:13 | ECG_ITS ---
[facility] Test Date: 2023-06-08 Pat Name: Brady Nails Department: Room: Gender: Female Senior Sql Developer: : 1935 Requested By: Suraj Sal Order Number: [id number] Estefani MD: Mike Caceres M.D. Measurements Intervals [place] Rate: 65 P: 61 MA: 118 QRS: 52 QRSD: 69 T: 39 QT: 382 QTc: 398 Interpretive Statements SINUS RHYTHM WITH SHORT MA INTERVAL Compared to ECG 04/17/2023 19:39:33 Short MA interval now present Electronically Signed On 06-08-2023 18:32:49 [employer] by Mike Caceres M.D. [email or web address], [id number]
[2023-06-08] MEDS: morphine 4 mg/mL SDV 1 mL IVP (15:26)
[2023-06-08] MEDS: ondansetron 2 mg/ML SDV 2 mL 4 MG IVP ×2 (15:27→21:41)
[2023-06-08] MEDS: meclizine 25 mg tablet 50 MG PO (15:28)
[2023-06-08 15:49] LABS: Basophils # 0.1 10^3/uL (0.0-0.1); Eosinophils # 0.1 10^3/uL (0.0-0.8); Eosinophils % 2.5 %; Hematocrit 40.9 % (36-47); Lymphocytes # 1.5 10^3/uL (0.8-4.8); Lymphocytes % 27.9 %; Mean Corpuscular HGB Conc 30.3 g/dL (30-55); Mean Corpuscular Hemoglobin 31.5 pg (27-33); Mean Corpuscular Volume 103.8 fl (85-98); Mean Platelet Volume 10.1 fL (7.4-10.4); Monocytes # 0.6 10^3/uL (0.2-0.9); Monocytes % 11.3 %; Neutrophils # 2.96 10^3/uL (1.8-7.7); Neutrophils % 56.9 %; Nucleated Red Blood Cells % 0 %; Platelet Count 182 10^3/cmm (157-399); Red Blood Count 3.94 10^6/uL (3.85-5.65); Red Cell Distribution Width 12.4 % (12.1-15.1)
[2023-06-08 16:21] LABS: INR 0.98 (0.8-1.2)
[2023-06-08 16:26] LABS: Alanine Aminotransferase 16 U/L (0-33); Albumin Level 3.5 g/dL (3.5-5.2); Alkaline Phosphatase 71 U/L (35-105); Anion Gap 9.2 (5-19); Aspartate Amino Transferase 20 U/L (0-32); Blood Urea Nitrogen 20 mg/dL (8-23); Calcium 8.6 mg/dL (8.5-10.5); Carbon Dioxide 30 mmol/L (22-29); Chloride 105 mmol/L (98-107); Globulin 2.6 g/dL (1.3-4.6); Glucose 67 mg/dL (65-115); Osmolality Calculated 291 mOsm/kg (285-295); Potassium 4.2 mmol/L (3.5-5.1); Sodium 140 mmol/L (136-145); Total Bilirubin 0.4 mg/dL (0.15-1.2); Total Protein 6.1 g/dL (6.6-8.7)
--- NOTE | 2023-06-08 18:15 | P.HP_ITS ---
Providers/Chief Complaint 2 Primary Care Provider: Josh Monk Chief Complaint: N/V, dizzy, Fell History of Present Illness Pleasant 87-year-old lady with history of asthma, COPD CKD, DDD, arthritis, reported atrial fibrillation, although she and her daughter did not remember having atrial fibrillation, presents to hospital due to persistent/recurrent vertigo, with the room spinning around her, states she bumps into things, head a fall several days back landing on her ribs. Possible fractures noted on rib x- ray on the right side in the fifth and sixth ribs. She is having some dyspnea. In ER O2 saturation reportedly was reading low, was placed on 2 L nasal cannula, although currently saturating 100% on [address] head without acute intracranial abnormality. He states she takes 81 mg aspirin for her heart. Is not aware of having history of heart attack. States that she may have had a stroke in the past with her face becoming paralyzed on one side, but this resolved after receiving a steroid course. 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 Review of Systems 2 Const: Denies: fever(s), chills, body aches or malaise Eyes: Denies: change in vision ENMT: Denies: throat pain Card: Denies: chest pain, edema, pre-syncope or dyspnea on exertion Resp: Denies: dyspnea, productive cough, change in phlegm color or hemoptysis GI: Reports: nausea; Denies: abdominal pain, vomiting, diarrhea, constipation, hematochezia or melena : Denies: flank pain, urinary frequency or hematuria Musc: Denies: back pain, joint swelling or joint redness Skin/Breast: Denies: rash or new lesions Neuro: Reports: difficulty walking, dizziness and vertigo; Denies: headache(s), numbness in extremities, weakness in extremities, lack of coordination, confusion or seizure-like activity Medications/Allergies Home Medications Medication Instructions Recorded Confirmed Last Taken Type Bedrail #1 ea 09/29/20 06/08/23 Unknown Rx aspirin 81 mg tablet,delayed 81 mg PO DAILY #30 tabs 04/17/23 06/08/23 06/07/23 Rx release nitroglycerin 0.4 mg sublingual 0.4 mg sublingual Q5M PRN chest 04/17/23 06/08/23 Unknown Rx tablet pain #20 tabs trazodone 50 mg tablet 25 mg PO DAILY 04/19/23 06/08/23 06/07/23 History fluticasone 500 mcg-salmeterol 50 1 inh inhalation Q12H #1 ea 04/26/23 06/08/23 06/07/23 Rx mcg/dose blistr powdr for inhalation (Advair Diskus) fluticasone propionate 50 1 spray intranasal BID #16 grams 04/26/23 06/08/23 06/07/23 Rx mcg/actuation nasal spray,suspension tramadol 50 mg tablet 50 mg PO BID PRN pain 30 days #60 04/26/23 06/08/23 06/07/23 Rx tabs albuterol sulfate 90 mcg/actuation 1 inh inhalation QID PRN Shortness 06/08/23 06/08/23 Unknown History aerosol inhaler (ProAir HFA) Of Breath meclizine 25 mg tablet 25 mg PO TID PRN Dizziness 06/08/23 06/08/23 Unknown History metoprolol succinate 25 mg 25 mg PO DAILY 06/08/23 06/08/23 06/07/23 History tablet,extended release 24 hr omeprazole 20 mg capsule,delayed 20 mg PO DAILY 06/08/23 06/08/23 06/07/23 History release Allergies Allergy/AdvReac Type Severity Reaction Status Date / Time Sulfa (Sulfonamide Allergy Mild Unknown Verified 06/08/23 14:55 Antibiotics) codeine Allergy Unknown Verified 06/08/23 14:55 Iodinated Contrast Media Allergy ALGY-Hives Verified 06/08/23 14:55 PFSH Acute 2 PFSH: Medical History Hx of atrial fibrillation without current medication Allergic rhinitis Obesity (BMI 30-39.9) (~04/20/23) CKD stage G2/A2, GFR 60-89 and albumin creatinine ratio 30-299 mg/g Lumbar compression fracture Anxiety about health Insomnia due to medical condition Extensor tendon dislocation, nontraumatic, hand History of DVT of lower extremity Enrolled in chronic care management Degenerative disc disease Chronic steroid use Compression fracture Urinary tract infection with hematuria Arthritis Hill knees, shoulders, neck and Lumbar spine Bilateral lower extremity edema COPD (chronic obstructive pulmonary disease) Surgical History S/P insertion of IVC (inferior vena caval) filter Removed on 01/21/21 Hx of cataract surgery H/O local excision of skin lesion H/O hand surgery History of ankle surgery H/O arthroscopy Hx of cholecystectomy H/O: hysterectomy Family History Other Cancer Heart disease Hypertension Kidney disease Social History Smoking and tobacco/nicotine status: never used tobacco/nicotine Alcohol intake: never Substance/Drug Use: never Adopted: No Caregiver/support person: No Lives independently: Yes service: No Current occupational status: employed Do you think of yourself as: Straight/Heterosexual Current gender identity: Female Vitals/I&O/Wt Last Vital Signs Temp 97.6 F 06/08/23 14:57 Pulse 82 06/08/23 17:42 Resp 20 H 06/08/23 17:42 BP 138/84 06/08/23 17:42 Pulse Ox 100 06/08/23 17:42 O2 Del Method Nasal Cannula 06/08/23 17:42 O2 Flow Rate 2 06/08/23 17:42 Weight last 48 hrs Weight 78.018 kg Physical Exam 2 Const: COMMON NORMALS: patient oriented x3 and alert GENERAL APPEARANCE: c ooperative ORIENTATION/CONSCIOUSNESS: Yes awake HENMT: COMMON NORMALS: oropharynx normal EXTERNAL EAR: Yes other (Healed up otitis externa, no evidence of otitis media) Neck/C-Spine: COMMON NORMALS: no JVD Resp: COMMON NORMALS: normal respiratory effort and clear to auscultation bilaterally AUSCULTATION: clear to auscultation bilaterally Cardio: COMMON NORMALS: no JVD, regular rhythm, S1 normal heart sound present, S2 normal heart sound present and No murmurs present (Cardio) RHYTHM: regular rhythm HEART SOUNDS: S1 normal heart sound present and S2 normal heart sound present GI: COMMON NORMALS: Normal to inspection, nondistended, normoactive bowel sounds present, Soft to palpation and non-tender PALPATION: Yes Soft to palpation Extremity: COMMON NORMALS: no joint enlargement and no pedal edema Neuro: COMMON NORMALS: patient oriented x3 and moves all extremities S ENSORIUM/ORIENTATION: Yes alert OTHER: Awake, readily following directions. No slurred speech. No facial droop. No difficulty tracking, does have some left beating nystagmus at the extreme of left gaze, visual price full to confrontation, no visual extinction. No difficulty with FNF. No upper or lower extremity drift. Sensory exam symmetrical. No sensory extinction. Skin: COMMON NORMALS: no rashes or lesions noted GENERAL SKIN EXAM: no rashes or lesions noted Data 06/08/23 15:15 06/08/23 15:15 A&P Assessment and plan (1) Vertigo: Persistent vertigo, discussed with her her daughter, reviewed vitals, CBC, INR, CMP, head CT, rib x-ray, hip/pelvis x-ray. Reviewed ER physician notes. Discussed with ER physician. Reviewed EKG, sinus rhythm on my interpretation. Discussed with her and her daughter Additional assessment by MRI brain to assess for possible posterior CVA given persistent/recurrent nature of vertigo. MRI requested. Reports had some water in her ears , but on exam no evidence of otitis media. No effusions noted. Possibly some healed up otitis externa. Assess TTE. Cardiac monitoring. Continue aspirin. Check cholesterol panel. Meclizine as needed. Fall precautions. PT, OT assessment. (2) Dyspnea: Some dyspnea reported on presentation, noted mild tachypnea, 20-22. Will check rapid flu, rapid COVID-19. Had a fall several days back secondary to vertigo, noted possible fractures of fifth and sixth ribs on the right side. Will request incentive spirometry. Continue oxygen support. Monitor oxygenation. Wean down as tolerating Plan Asthma: Clear to auscultation, not currently in exacerbation. Uses inhaler as needed. Possible atrial fibrillation: Her and her daughter are not aware of atrial fibrillation in the past. Monitor on telemetry. EKG reviewed, noted normal sinus. Consider heart monitor. History of DVT, history of IVC filter placement. Previously on anticoagulation. Chronic kidney disease Attestations 2 Medical Necessity Statement*: Placed in observation for additional assessment and management of persistent/recurrent vertigo, additional assessment for possible posterior CVA. and High MDM includes amount and/or complexity of data reviewed/ordered [ previous or external records, resulted lab(s)/test(s), ordered lab(s)/test(s) and other healthcare professional discussion] as documented Diagnoses Vertigo R42 Dyspnea R06.00
--- NOTE | 2023-06-08 20:28 | USCV_ITS ---
Brady Nails Age: 87 Gender: F : 1935 Exam Date: 06/08/2023 21:41 Ordering Phys: Mansoor Evans MD Technologist: LETITIA Exam Location: [facility] [place] Indication: cva, syncope and ground-level fall, fracturing RIGHT ribs. BP: 137 / 75 HR: 59 Rhythm: Sinus Technical Quality: Adequate MEASUREMENTS (Male / Female) Normal Values 2D ECHO LV Diastolic Diameter PLAX 4.5 cm 4.2 - 5.9 / 3.9 - 5.3 cm LV Systolic Diameter PLAX 3.0 cm IVS Diastolic Thickness 1.6 cm 0.6 - 1.0 / 0.6 - 0.9 cm IVS Systolic Thickness 1.8 cm LVPW Diastolic Thickness 1.1 cm 0.6 - 1.0 / 0.6 - 0.9 cm LVPW Systolic Thickness 1.1 cm LVOT Diameter 1.9 cm LV Ejection Fraction 2D Teich 62.5 % LV Ejection Fraction MOD 2C 66.6 % LV Ejection Fraction 2C AL 70.1 % LA Diameter 3.6 cm LA Width 4.2 cm LA Height 5.5 cm RA Width 3.0 cm RA Height 4.3 cm IVC Diameter 2.3 cm M-MODE Aortic Annulus Diameter 3.3 cm LA Ao Ratio MM 1.1 MV E Point Septal Separation 0.7 cm DOPPLER AV Peak Velocity 124.0 cm/s LVOT Peak Velocity 88.0 cm/s AV Area Cont Eq vti 2.0 cm squared AV Area Cont Eq pk 2.1 cm squared MV Peak Velocity 129.0 cm/s MV Area PHT 3.2 cm squared Mitral E to A Ratio 1.2 MV E' Velocity 57.0 cm/s Mitral E to MV E' Ratio 11.5 Mitral E to LV E' Lateral Ratio 11.2 Mitral E to LV E' Septal Ratio 11.8 TR Peak Velocity 316.3 cm/s TR Peak Gradient 40.0 mmHg TV Peak E Velocity 61.0 cm/s Right Atrial Pressure 5.0 mmHg Pulmonary Artery Systolic Pressu 45.0 mmHg PV Peak Velocity 111.0 cm/s RV Acceleration Time 0.2 s RV Ejection Time 0.4 s RV AcT/ET 0.4 FINDINGS Left Ventricle Normal left ventricular size and systolic function, EF 68 %. Mild left ventricular hypertrophy. Grade III/IV diastolic dysfunction (restrictive filling pattern), severely elevated filling pressures. Right Ventricle The right ventricle is normal in size and function. Right Atrium The right atrium is normal in size. Left Atrium Mildly increased left atrial size. Mitral Valve No gross abnormalities noted Aortic Valve Thickened aortic valve. Tricuspid Valve Mild to moderate tricuspid valve regurgitation. Estimated pulmonary artery peak systolic pressure 45 mmHg Pulmonic Valve Structurally normal pulmonic valve without significant stenosis. There is no pulmonic regurgitation. Pericardium Normal pericardium without effusion. Aorta Normal aortic annulus size. IVC Normal IVC dimension with <50% respiratory change of the inferior vena cava. CONCLUSIONS Normal left ventricular size and systolic function, EF 68 %. Mild left ventricular hypertrophy. Grade III/IV diastolic dysfunction (restrictive filling pattern), severely elevated filling pressures. Mildly increased left atrial size. Thickened aortic valve. Mild to moderate tricuspid valve regurgitation. Estimated pulmonary artery peak systolic pressure 45 mmHg. There is no pericardial effusion. There are no intracardiac masses. Compared to the previous study from 09/20/2020, there is development of pulmonary hypertension Dr Shante Borrego MD FAC (Electronically Signed) Final Date: 09 June 2023 15:28 S
--- NOTE | 2023-06-08 20:28 | XRR_ITS ---
PROCEDURE INFORMATION: Exam: XR Chest Exam date and time: 06/08/2023 10:28 PM Age: 87 years old Clinical indication: Dyspnea TECHNIQUE: Imaging protocol: Radiologic exam of the chest. Views: 1 view. COMPARISON: CR XR ribs RT mn 3V w [id number] 06/08/2023 3:37 PM FINDINGS: Lungs: The lungs are clear. Pleural spaces: Unremarkable. No pleural effusion. No pneumothorax. Heart/Mediastinum: Unremarkable. No cardiomegaly. Vasculature: The aorta is calcified. Bones/joints: Incidental spurs in the thoracic and lumbar spine. XR/XR chest 1V portable [id number] IMPRESSION: No acute findings
[2023-06-08 22:32] LABS: SARS Covid-2 Antigen negative (Negative)
[2023-06-08 22:33] LABS: Influenza A by IFA negative (Negative); Influenza B by IFA negative (Negative)
[2023-06-08] MEDS: TRAMadol 50 mg Tablet PO (22:56)
[2023-06-08] MEDS: atorvastatin 40 mg Tablet PO (22:56)
[2023-06-09] VITALS (14 sets, daily range): BP systolic 117–136; BP diastolic 53–76; PULSE 62–80; RESP 15–18; TEMP 36.4–36.8; O2SAT 85–100
[2023-06-09 06:07] LABS: Estmated Average Glucose 97
[2023-06-09 06:11] LABS: Chol HDL Ratio 2.73 mg/dL (0.0-4.40); Cholesterol 180 mg/dL (0-200); HDL Cholesterol 66 mg/dL (60-100); LDL Cholesterol Calculated 102 mg/dL (50-129); LDL HDL Ratio 1.55 RATIO (0.00-3.22); Triglycerides 62 mg/dL (0-150)
[2023-06-09] MEDS: albuterol 2.5 mg/3 mL Neb INHALATION ×5 (07:39→15:45)
[2023-06-09] MEDS: budesonide 0.5 mg/2 mL Neb INHALATION ×2 (07:39→20:08)
--- NOTE | 2023-06-09 08:52 | PC.CHAP ---
Pastoral Care Encounter/Spiritual Assessment Type of Contact [] Declined nuclear medicine supervisor visit [] Patient/Family/Request visit [] Outpatient visit [] Follow-up visit [] Physician referral [] Code/Alert [] Routine visit [] Staff referral [] Actively dying [x] Patient sleeping [] Family support [] [] Out of room [] Palliative care [] [] Receiving care in room [] Pre-surgical visit [] Trauma [] Long length of stay [] ICU visit [] Other: Relational/Emotional Strength [] Patient feels connected with others/family/visitors/staff [] Distress [] Loneliness/isolation [] Abandonment Spirituality of Patient [] Person of Christianne [] Attends Congregation of their Christianne [] Believes in Prayer [] Reads Bible or Bahai materials [] There are Spiritual issues to be addressed Grinder Hand Interventions [] Prayer [] Active listening [] Non-anxious presence [] Spiritual/emotional support [] Crisis/trauma care [] Spiritual counseling [] Bereavement support [] Provided bereavement packet [] Provided Bible/devotional materials [] Provided toy/stuffed animal, coloring book to patient or family member [] Provided Communion [] Anointing/[place] [] Salvation [] Completed spiritual assessment [] Other: Impact on Illness or Injury [] Angry [] Fearful [] Anxious [] Often cries [] Exhaustion [] Unable to work [] Unable to attend orthodox [] Unable to walk/stand [] Unable to read [] Unable to drive [] Unable to eat/drink [] Unable to sleep [] Unable to be with family [] Patient intubated [] Other: Summary Time spent with patient
[2023-06-09] MEDS: metoprolol succinate ER (24 HR) 25 mg Tablet PO (09:42)
[2023-06-09] MEDS: pantoprazole DR 40 mg Tablet PO (09:42)
[2023-06-09] MEDS: aspirin 81 mg EC Tablet PO (09:43)
--- NOTE | 2023-06-09 10:15 | MR_ITS ---
WS: [id number] MRI HEAD WITHOUT CONTRAST TECHNIQUE: Sagittal T1, T2 axial, T2 axial FLAIR, axial and coronal T1 images, axial susceptibility w eighted imaging, axial diffusion weighted images, and coronal T2 images were obtained. CLINICAL INFORMATION: assess for poss post cva COMPARISON: CT head 06/08/2023 FINDINGS: No evidence of restricted diffusion to suggest acute ischemia. Ventricular system and basilar cistern s are patent. Mild small vessel changes with mild parenchymal volume loss. Normal posterior fossa. No rmal vascular flow voids at the skull base. No extra-axial fluid collections. No evidence of mass or mass effect. Paranasal sinuses and mastoid air cells are well aerated. Normal posterior nasopharynx. Normal optic chiasm and pituitary infundibulum. Temporal lobes and hippocampal formations are normal in appearance. Suspected tiny incidental calcified meningioma overlying the RIGHT posterior superior temporal lobe m easuring 6 mm. IMPRESSION: 1. No evidence of restricted diffusion to suggest acute ischemia. 2. Mild small vessel changes. Mild parenchymal volume loss. 3. No hemosiderin on susceptibility-weighted images. 4. Suspected tiny incidental calcified meningioma overlying the RIGHT posterior superior temporal lo be measuring 6 mm. 5. No other suspicious findings.
[2023-06-09] MEDS: TRAMadol 50 mg Tablet PO (15:10)
--- NOTE | 2023-06-09 16:25 | PC.NURSE ---
At 1200, pt states that she needs her IV out and she is going home. States, if you don't let me go, I am calling the marine equipment sales engineer. Pt then shoves table toward staff. Tells patient that she is able to leave AMA explaining the risks, and pt agrees to this. Notifies Dr. Evans that pt would like to leave. After physician speaks with pt, AMA paperwork completed, medication sent to [facility], follow-up visits scheduled, IV removed. Approx 1h later, family comes into facility and speaks with pt. Pt then decides to stay at [facility] to continue care. Notifies Dr. Evans. Pt refuses to have another IV placed and wear oxygen.
[2023-06-09] MEDS: ipratropium-albuterol 3 mL Neb INHALATION ×2 (20:08)
[2023-06-09] MEDS: atorvastatin 40 mg Tablet PO (21:09)
[2023-06-09] MEDS: trazodone 50 mg Tablet 25 MG PO (21:09)
[2023-06-09] MEDS: acetaminophen 325 mg Tablet 650 MG PO (21:10)
--- NOTE | 2023-06-09 21:27 | P.PN_ITS ---
Subjective 2 Subjective: Nauseated. About to vomit. Vitals/I&O/Wt Last Vital Signs Temp 98.2 F 06/09/23 12:00 Pulse 73 06/09/23 20:15 Resp 17 06/09/23 20:07 BP 136/74 06/09/23 16:00 Pulse Ox 96 06/09/23 20:15 O2 Del Method Nasal Cannula 06/09/23 20:15 O2 Flow Rate 2 06/09/23 20:15 06/09/23 06/09/23 06/09/23 06:59 14:59 22:59 Intake Total 360 / 360 240 / 600 Balance 360 / 360 240 / 600 Weight last 48 hrs Weight 87.231 kg Weight 78.018 kg Weight 78.018 kg Physical Exam 2 Const: COMMON NORMALS: patient oriented x3 and alert GENERAL APPEARANCE: c ooperative ORIENTATION/CONSCIOUSNESS: Yes awake HENMT: COMMON NORMALS: oropharynx normal Neck/C-Spine: COMMON NORMALS: no JVD Resp: COMMON NORMALS: normal respiratory effort and clear to auscultation bilaterally AUSCULTATION: clear to auscultation bilaterally Cardio: COMMON NORMALS: no JVD, regular rhythm, S1 normal heart sound present, S2 normal heart sound present and No murmurs present (Cardio) RHYTHM: regular rhythm HEART SOUNDS: S1 normal heart sound present and S2 normal heart sound present GI: COMMON NORMALS: Normal to inspection, nondistended, normoactive bowel sounds present, Soft to palpation and non-tender PALPATION: Yes Soft to palpation Extremity: COMMON NORMALS: no joint enlargement and no pedal edema Neuro: COMMON NORMALS: patient oriented x3 and moves all extremities S ENSORIUM/ORIENTATION: Yes alert OTHER: Awake, readily following directions. No slurred speech. No facial droop. No difficulty tracking. No difficulty with FNF. No upper or lower extremity drift. Sensory exam symmetrical. No sensory extinction. Skin: COMMON NORMALS: no rashes or lesions noted GENERAL SKIN EXAM: no rashes or lesions noted Data 06/08/23 15:15 06/08/23 15:15 A&P Assessment and plan (1) Vertigo: Reviewed MRI. No stroke noted. Incidentally found to have 6 mm calcified meningioma in right temporal region. Discussed to monitor for any seizure-like activity. She is nauseated this afternoon, vomiting. Symptomatic. Discussed with physical therapist. Could not trigger vertigo with Saranya-Hallpike. Difficult to perform due to rib fractures and hypoxia at current time. Consider reassessment with improvement in condition. Treat nausea. Discussed with embedded case manager. Persistent vertigo, discussed with her her daughter, reviewed vitals, CBC, INR, CMP, head CT, rib x-ray, hip/pelvis x-ray. Reviewed ER physician notes. Discussed with ER physician. Reviewed EKG, sinus rhythm on my interpretation. Discussed with her and her daughter Additional assessment by MRI brain to assess for possible posterior CVA given persistent/recurrent nature of vertigo. MRI requested. Reports had some water in her ears , but on exam no evidence of otitis media. No effusions noted. Possibly some healed up otitis externa. Assess TTE. Cardiac monitoring. Continue aspirin. Check cholesterol panel. Meclizine as needed. Fall precautions. PT, OT assessment. (2) Dyspnea: Some hypoxia, O2 sats down to 88%. Does have history of COPD. Reportedly has oxygen at home. Does not necessarily use it. Home O2 evaluation requested. Reviewed echocardiogram. With possibly component of bronchitis/pneumonitis. Reassess oxygenation. With nausea, vomiting, will check COVID PCR panel. Repeat chest x-ray. Encouraged incentive spirometer with rib fractures. Pain control as needed. Some dyspnea reported on presentation, noted mild tachypnea, 20-22. Will check rapid flu, rapid COVID-19. Had a fall several days back secondary to vertigo, noted possible fractures of fifth and sixth ribs on the right side. Will request incentive spirometry. Continue oxygen support. Monitor oxygenation. Wean down as tolerating Plan Asthma: Clear to auscultation, not currently in exacerbation. Uses inhaler as needed. Possible atrial fibrillation: Her and her daughter are not aware of atrial fibrillation in the past. Monitor on telemetry. EKG reviewed, noted normal sinus. Consider heart monitor. History of DVT, history of IVC filter placement. Previously on anticoagulation. Chronic kidney disease Attestations 2 Medical Necessity Statement*: Continue admission for assessment management of vertigo, nausea and vomiting. Hypoxia. Diagnoses Vertigo R42 Dyspnea R06.00
[2023-06-10] VITALS (14 sets, daily range): BP systolic 103–127; BP diastolic 47–66; PULSE 68–89; RESP 16–18; TEMP 36.4–36.8; O2SAT 91–99
[2023-06-10] MEDS: ipratropium-albuterol 3 mL Neb INHALATION ×3 (01:50→13:08)
--- NOTE | 2023-06-10 06:00 | XRR_ITS ---
PROCEDURE INFORMATION: Exam: XR Chest Exam date and time: 06/10/2023 7:05 AM Age: 87 years old Clinical indication: Shortness of breath; Additional info: Hypoxia TECHNIQUE: Imaging protocol: Radiologic exam of the chest. Views: 1 view. COMPARISON: CR (CHEST, ) 06/08/2023 10:28 PM FINDINGS: Lungs: Slight probable atelectasis and/or infiltrate right lung base. Small patchy opacity left lung base near diaphragm appearing new, progressed, or changed compared to 06/08/2023. Pleural spaces: No large or obvious pneumothorax seen. Tiny left pleural effusion not excluded, though there appears to be chronic opacity lower left hemithorax laterally, possibly pleural thickening. Heart/Mediastinum: Stable heart size. Vasculature: Atherosclerotic disease aorta. Bones/joints: Degenerative changes spine. XR/XR chest 1V portable [id number] IMPRESSION: 1. Slight probable atelectasis and/or infiltrate right lung base. Small patchy opacity left lung base near diaphragm appearing new, progressed, or changed compared to 06/08/2023. Correlate for inflammation/pneumonitis, pneumonia, other process. 2. Tiny left pleural effusion not excluded, though there appears to be chronic opacity lower left hemithorax laterally, possibly pleural thickening.
[2023-06-10] MEDS: budesonide 0.5 mg/2 mL Neb INHALATION (07:58)
[2023-06-10 09:12] LABS: Adenovirus Not Detected (NOT DETECT); Chlamydia Pneumoniae Not Detected (NOT DETECT); Coronavirus 229E,HKU1,NL63,OC4 Not Detected (NOT DETECT); Human Metapneumovirus Not Detected (NOT DETECT); Human Rhinovirus/Enterovirus Not Detected (NOT DETECT); Influenza A Not Detected (NOT DETECT); Influenza A H1 Not Detected (NOT DETECT); Influenza A H1-2009 Not Detected (NOT DETECT); Influenza A H3 Not Detected (NOT DETECT); Influenza B Not Detected (NOT DETECT); Mycoplasma Pneumoniae Not Detected (NOT DETECT); Parainfluenza Virus Type 1 Not Detected (NOT DETECT); Parainfluenza Virus Type 2 Not Detected (NOT DETECT); Parainfluenza Virus Type 3 Not Detected (NOT DETECT); Parainfluenza Virus Type 4 Not Detected (NOT DETECT); Respiratory Syncytial Virus A Not Detected (NOT DETECT); Respiratory Syncytial Virus B Not Detected (NOT DETECT); SARS-COV-2 Not Detected (NOT DETECT)
[2023-06-10] MEDS: aspirin 81 mg EC Tablet PO (09:58)
[2023-06-10] MEDS: pantoprazole DR 40 mg Tablet PO (09:59)
[2023-06-10] MEDS: metoprolol succinate ER (24 HR) 25 mg Tablet PO (09:59)
--- NOTE | 2023-06-10 12:46 | PM.DCS ---
Discharge Providers Date of Admission: 06/08/23 19:59 Date of Discharge: June 10, 2023 Attending Provider at Admission: Mansoor Evans Attending Provider at Discharge: Mansoor Evans Primary Care Provider: Josh Monk Diagnoses at Discharge Discharge Diagnosis (1) Vertigo: Status: Inactive (2) Dyspnea: Status: Acute Reason for Visit Reason for Visit: N/V, dizzy, Fell Brief History: Pleasant 87-year-old lady with history of asthma, COPD CKD, DDD, arthritis, reported atrial fibrillation, although she and her daughter did not remember having atrial fibrillation, presents to hospital due to persistent/recurrent vertigo, with the room spinning around her, states she bumps into things, head a fall several days back landing on her ribs. Possible fractures noted on rib x-ray on the right side in the fifth and sixth ribs. She is having some dyspnea. In ER O2 saturation reportedly was reading low, was placed on 2 L nasal cannula, although currently saturating 100% on [address] head without acute intracranial abnormality. He states she takes 81 mg aspirin for her heart. Is not aware of having history of heart attack. States that she may have had a stroke in the past with her face becoming paralyzed on one side, but this resolved after receiving a steroid course. 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 Hospital Course Hospital Course COVID-19 PCR panel was negative. During hospitalization she was assessed with TTE which showed normal ejection fraction, mild LVH, grade 3 diastolic dysfunction, mildly increased left atrial size, mild to moderate cuspid regurgitation, estimated peak pulmonary artery systolic pressure 45 mmHg. EKG with sinus rhythm. MRI of the brain showed no evidence of restricted diffusion to suggest acute ischemia, mild small vessel changes, parenchymal volume loss. Suspected tiny incidental calcified meningioma overlying right posterior superior temporal lobe measuring 6 mm. Initially with vertigo, then nausea, this had improved with symptomatic treatment. Was seen by physical therapy and [place] performed, but nystagmus could not be triggered. Difficult to perform maneuver, however, due to rib fractures and hypoxia. As per discussion with her and family she has had some decreased hearing recently as well and reports some tinnitus. With some vertigo and other symptoms discussed with her consideration of possibly labyrinthitis, possibly M?ni?re's disease. As she states her symptoms have been going on for close to about a month, not started on steroids, diuretics avoided at this time with lack of good evidence and her age. She is asked to follow-up with ENT, however, for additional assessment and request is made for an appointment. With reported history of COPD, she denies having oxygen at home, states that she has been just taking deep breaths in case she gets out of breath, and states sometimes with breathing into a paper bag. With hypoxia, as well as intermittent vertigo/dizziness, falls, discussed with her not to breathe in a paper bag. Home oxygen study was requested at discharge for oxygen arrangements, instructed on incentive spirometry use. Please reassess oxygenation, recovery after rib fractures. Physical Exam Narrative: Mildly hard of hearing Const: COMMON NORMALS: patient oriented x3 and alert GENERAL APPEARANCE: cooperative ORIENTATION/CONSCIOUSNESS: Yes awake HENMT: COMMON NORMALS: oropharynx normal Neck/C-Spine: COMMON NORMALS: no JVD Resp: COMMON NORMALS: normal respiratory effort and clear to auscultation bilaterally AUSCULTATION: clear to auscultation bilaterally Cardio: COMMON NORMALS: no JVD, regular rhythm, S1 normal heart sound present, S2 normal heart sound present and No murmurs present (Cardio) RHYTHM: regular rhythm HEART SOUNDS: S1 normal heart sound present and S2 normal heart sound present GI: COMMON NORMALS: Normal to inspection, nondistended, normoactive bowel sounds present, Soft to palpation and non-tender PALPATION: Yes Soft to palpation Extremity: COMMON NORMALS: no joint enlargement and no pedal edema Neuro: COMMON NORMALS: patient oriented x3 and moves all extremities SENSORIUM/ORIENTATION: Yes alert OTHER: Awake, readily following directions. No slurred speech. No facial droop. No difficulty tracking. No difficulty with FNF. No upper or lower extremity drift. Sensory exam symmetrical. No sensory extinction. Skin: COMMON NORMALS: no rashes or lesions noted GENERAL SKIN EXAM: no rashes or lesions noted Discharge Data Studies Completed and Pending Completed Studies During Hospitalization Category Date Time Status CT head wo con* [id number] Stat Cat Scan 06/08/23 15:06 Completed CXRP [XR chest 1V portable [id number]] Routine Exams 06/08/23 20:28 Completed XR chest 1V portable [id number] Routine Exams 06/10/23 06:00 Completed XR hip RT 2-3V wo/w pel* [id number] Stat Exams 06/08/23 15:09 Completed XR ribs RT mn 3V w CXR1V [id number] Stat Exams 06/08/23 15:06 Completed MR head wo con* [id number] Stat MRI 06/09/23 10:15 Completed CV. echo complete* [id number] Routine Ultrasound 06/08/23 20:28 Completed Radiology Impressions Head CT 06/08/23 15:06 IMPRESSION: No acute intracranial abnormality. Chest X-Ray 06/10/23 06:00 IMPRESSION: 1. Slight probable atelectasis and/or infiltrate right lung base. Small patchy opacity left lung base near diaphragm appearing new, progressed, or changed compared to 06/08/2023. Correlate for inflammation/pneumonitis, pneumonia, other process. 2. Tiny left pleural effusion not excluded, though there appears to be chronic opacity lower left hemithorax laterally, possibly pleural thickening. Laboratory Results WBC 5.20 10^3/uL (3.29-11.43) 06/08/23 15:15 RBC 3.94 10^6/uL (3.85-5.65) 06/08/23 15:15 Hgb 12.40 g/dL (11.27-16.99) 06/08/23 15:15 Hct 40.9 % (36-47) 06/08/23 15:15 MCV 103.8 fl (85-98) H 06/08/23 15:15 MCH 31.5 pg (27-33) 06/08/23 15:15 MCHC 30.3 g/dL (30-55) 06/08/23 15:15 RDW 12.4 % (12.1-15.1) 06/08/23 15:15 Plt Count 182 10^3/cmm (157-399) 06/08/23 15:15 MPV 10.1 fL (7.4-10.4) 06/08/23 15:15 Neut % (Auto) 56.9 % 06/08/23 15:15 Lymph % (Auto) 27.9 % 06/08/23 15:15 Crane % (Auto) 11.3 % 06/08/23 15:15 Eos % (Auto) 2.5 % 06/08/23 15:15 Baso % (Auto) 1.0 % 06/08/23 15:15 Neut # (Auto) 2.96 10^3/uL (1.8-7.7) 06/08/23 15:15 Lymph # (Auto) 1.5 10^3/uL (0.8-4.8) 06/08/23 15:15 Crane # (Auto) 0.6 10^3/uL (0.2-0.9) 06/08/23 15:15 Eos # (Auto) 0.1 10^3/uL (0.0-0.8) 06/08/23 15:15 Baso # (Auto) 0.1 10^3/uL (0.0-0.1) 06/08/23 15:15 Nucleated RBC % (auto) 0 % 06/08/23 15:15 Nucleated RBCs # 0.0 /100WBC 06/08/23 15:15 PT 13.30 SECONDS (12.1-14.9) 06/08/23 15:15 INR 0.98 (0.8-1.2) 06/08/23 15:15 Sodium 140 mmol/L (136-145) 06/08/23 15:15 Potassium 4.2 mmol/L (3.5-5.1) 06/08/23 15:15 Chloride 105 mmol/L (98-107) 06/08/23 15:15 Carbon Dioxide 30 mmol/L (22-29) H 06/08/23 15:15 Anion Gap 9.2 (5-19) 06/08/23 15:15 BUN 20 mg/dL (8-23) 06/08/23 15:15 Creatinine 0.8 mg/dL (0.5-0.9) 06/08/23 15:15 GFR Calculation Not Reportable 06/08/23 15:15 Glucose 67 mg/dL (65-115) 06/08/23 15:15 Estimat Average Glucose 97 06/09/23 05:08 Hemoglobin A1c 5.0 % (4.0-6.0) 06/09/23 05:08 Calculated Osmolality 291 mOsm/kg (285-295) 06/08/23 15:15 Calcium 8.6 mg/dL (8.5-10.5) 06/08/23 15:15 Total Bilirubin 0.4 mg/dL (0.15-1.2) 06/08/23 15:15 AST 20 U/L (0-32) 06/08/23 15:15 ALT 16 U/L (0-33) 06/08/23 15:15 Alkaline Phosphatase 71 U/L (35-105) 06/08/23 15:15 Total Protein 6.1 g/dL (6.6-8.7) L 06/08/23 15:15 Albumin 3.5 g/dL (3.5-5.2) 06/08/23 15:15 Globulin 2.6 g/dL (1.3-4.6) 06/08/23 15:15 Triglycerides 62 mg/dL (0-150) 06/09/23 05:08 Cholesterol 180 mg/dL (0-200) 06/09/23 05:08 LDL Cholesterol, Calc 102 mg/dL (50-129) 06/09/23 05:08 HDL Cholesterol 66 mg/dL (60-100) 06/09/23 05:08 LDL/HDL Ratio 1.55 RATIO (0.00-3.22) 06/09/23 05:08 Cholesterol/HDL Ratio 2.73 mg/dL (0.0-4.40) 06/09/23 05:08 Coronavirus 229E (PCR) Not detected (NOT DETECT) 06/10/23 03:30 Influenza Type A Ag negative (Negative) 06/08/23 21:35 Influenza Type B Ag negative (Negative) 06/08/23 21:35 SARS-CoV-2 (PCR) Not detected (NOT DETECT) 06/10/23 03:30 SARS-CoV-2 Ag (Rapid) negative (Negative) 06/08/23 21:35 Vitals Last Vital Signs Temp 98.3 F 06/10/23 12:10 Pulse 73 06/10/23 12:10 Resp 16 06/10/23 12:10 BP 118/66 06/10/23 12:10 Pulse Ox 98 06/10/23 12:10 O2 Del Method Nasal Cannula 06/10/23 07:59 O2 Flow Rate 2 06/10/23 07:59 Discharge Plan Discharge Patient Disposition: Home Condition: Stable Prescriptions: New atorvastatin 20 mg tablet 20 mg PO BEDTIME Qty: 90 0RF ondansetron 4 mg tablet,disintegrating 4 mg PO Q6H Qty: 12 0RF Continued trazodone 50 mg tablet 25 mg PO DAILY fluticasone propionate 50 mcg/actuation spray,suspension 1 spray intranasal BID Qty: 16 1RF Rx Instructions: administer into each nostril fluticasone propion-salmeterol [Advair Diskus] 500-50 mcg/dose blister with device 1 inh inhalation Q12H Qty: 1 0RF (DME) Bedrail See Rx Instructions .Route .MEDSUPPLY Qty: 1 0RF Rx Instructions: As directed meclizine 25 mg tablet 25 mg PO TID PRN (Reason: Dizziness) omeprazole 20 mg capsule,delayed release(DR/EC) 20 mg PO DAILY metoprolol succinate 25 mg tablet extended release 24 hr 25 mg PO DAILY ProAir HFA 90 mcg/actuation HFA aerosol inhaler 1 inh inhalation QID PRN (Reason: Shortness Of Breath) Rx Instructions: 340B may sub ventolin aspirin 81 mg tablet,delayed release (DR/EC) 81 mg PO DAILY Qty: 30 0RF nitroglycerin 0.4 mg tablet, sublingual 0.4 mg sublingual Q5M PRN (Reason: chest pain) Qty: 20 0RF Rx Instructions: do not exceed 3 doses per episode Discontinued tramadol 50 mg tablet 50 mg PO BID PRN (Reason: pain) 30 Days Qty: 60 2RF Discharge Orders: Discharge Order (Routine); Ordered 06/10/23 Ordered By: Mansoor Evans Referrals: [facility] [Provider Group] - 4-7 days (vertigo, hearing loss) [facility] [Provider Group] - 4-7 days Josh Monk FNP [Primary Care Provider] - 4-7 days (We have notified your physician's clinic of the need for a follow-up appointment to be scheduled. If you have not heard from them within the next 2 business days, please call them directly. ) Discharge Diet: Cardiac Discharge Activity: Limit activity as instructed, Use walker/crutches as instructed, As per PT/OT instructions and Oxygen as instructed Patient Instructions: Atorvastatin (By mouth), Rib Fracture (GEN), Vertigo (GEN), Using Oxygen at Home (GEN), Hypoxia (GEN), Fall Prevention (GEN), Opioid Safety Activity Restrictions/Additional Instructions: Return to ER at anytime, especially if there is any worsening or new concerning symptoms. Maintain strict fall precautions. Follow-up with your primary provider regarding persistent/recurrent dizziness/vertigo, falls. Have your primary doctor refer you to outpatient physical therapy for consideration of Herminio maneuver with consideration of BPPV once rib fractures are not as bothersome to you.. Have your primary doctor follow-up regarding small meningioma tumor found in the temporal lobe of your brain on the MRI. Have your primary doctor follow-up on your broken ribs. You are at increased risk of developing pneumonia. Use the incentive spirometer every hour to help keep your lungs expanded and reduce chance of pneumonia. Target oxygen saturation 92%. Wear oxygen if your oxygen saturation is decreasing (this may happen with exertion). Do not use a paper bag to breathe into. Again seek medical attention in case of any trouble breathing, fever, or any signs of worsening or new concerning symptoms. Discharge Attestations Time Spent in Discharge Care*: greater than 30 min Status at Discharge: Cognitive status at discharge: cognitively intact, Behavioral status at discharge: cooperative, Quality Metrics Clinical Quality Measures [ No reported AMI, CVA or VTE this stay] Coding Level of Care Code 37961 Total time (in minutes) for Discharge: 45 Diagnoses Vertigo R42 Dyspnea R06.00
--- NOTE | 2023-06-10 15:08 | PC.NURSE ---
Discussed discharge with patient and family. Explained to patientf to call the physician offices listed on discharge for follow up appointments. Discussed new medications and discontinued medications with the patient and family as well. All involved in the discharge acknowledged understanding of discharge and expectations of appointments as well as new medications.
== END 2023-06-10 14:45 | disposition home or self-care (01) ==
LOC: ER 17:03 → MEDSURG 21:40
PROVIDERS: Admitting Provider Internal Medicine; Emergency Provider Emergency Medicine; PCP Nurse Practitioner Family; Visit Provider Internal Medicine
DX: R42 Dizziness and giddiness (principal); R06.00 Dyspnea, unspecified; H93.19 Tinnitus, unspecified ear; J44.9 Chronic obstructive pulmonary disease, unspecified; N18.9 Chronic kidney disease, unspecified; I48.91 Unspecified atrial fibrillation; Z91.81 History of falling; Z79.82 Long term (current) use of aspirin; I07.1 Rheumatic tricuspid insufficiency; Z86.718 Personal history of other venous thrombosis and embolism; M19.90 Unspecified osteoarthritis, unspecified site; Z79.52 Long term (current) use of systemic steroids
CPT/HCPCS: 36415; 70450; 70551; 71045; 71101; 73502; 80053; 80061; 83036; 85025; 85610; 87426; 87635; 87804; 93005; 93306; 94640; 94760; 96374; 96375; 97161; 97165; 97530; 99285; G0378; J2270; J2405; J7613; J7626; J8597

== ENCOUNTER 2023-09-11 12:14 | Emergency (ER) | payer MEDICARE, SELFPAY ==
[2023-09-11 12:17] VITALS: BP 156/65; PULSE 55; TEMP 36.4; O2SAT 93; BMI 31.2
--- NOTE | 2023-09-11 12:40 | CT_ITS ---
WS: [id number] CT HEAD TECHNIQUE: Noncontrast CT of the head obtained from the skullbase to the vertex. CLINICAL INFORMATION: dizziness COMPARISON: CT 06/08/2023 and MRI 06/09/2023 DLP: 965.[address] scans at [facility] use at least one of these dose optimization techniques: automated e xposure control; mA and/or kV adjustment per patient size (includes targeted exams where dose is matc hed to clinical indication); or iterative reconstruction. FINDINGS: No evidence of intracranial hemorrhage or mass effect. Ventricular system and basal cisterns are kincaid nt. Mild small vessel changes with mild parenchymal volume loss. No extra-axial fluid collections. Ti ny chronic lacunar infarct RIGHT caudate. Tiny lacunar infarct RIGHT thalamus appears new from the pr ior studies but likely chronic. Stable small calcified meningioma overlying the posterior super tempo ral lobe measuring 6 mm Paranasal sinuses and mastoid air cells are well aerated. .Normal visualized soft tissues. IMPRESSION: 1. No evidence of intracranial hemorrhage or mass effect. 2. Mild small vessel changes. Mild parenchymal volume loss. 3. Tiny lacunar infarct RIGHT thalamus appears new from the prior studies but most likely chronic. T his can be followed up with MRI 4. Stable small calcified meningioma overlying the posterior super temporal lobe measuring 6 mm 5. No other suspicious findings.
--- NOTE | 2023-09-11 12:40 | XRR_ITS ---
PROCEDURE INFORMATION: Exam: XR Chest Exam date and time: 09/11/2023 11:49 AM Age: 88 years old Clinical indication: Other: Dizzy; Additional info: Dizzy, cough TECHNIQUE: Imaging protocol: Radiologic exam of the chest. Views: 1 view. COMPARISON: CR XR chest 1V portable [id number] 06/10/2023 7:05 AM FINDINGS: Lungs: Probable left basilar hazy opacity. Pleural spaces: No distinct pneumothorax. Heart/Mediastinum: Cardiomediastinal silhouette is midline and stable in size. Vasculature: Calcific disease of the aortic knob. Bones/joints: No acute osseous findings. XR/XR chest 1V portable [id number] IMPRESSION: Probable left basilar hazy opacity. This may be artifactual or could represent infiltrate, atelectasis, and/or small pleural effusion.
[2023-09-11 12:42] VITALS: BP 146/59; PULSE 53; O2SAT 92
--- NOTE | 2023-09-11 12:50 | ED_ITS ---
HPI - General Adult 2 General: Chief complaint: Nausea/Vomiting/Diarrhea Stated complaint: n/v Time Seen by Provider: 09/11/23 12:15 Source: patient Mode of arrival: EMS Limitations: no limitations History of Present Illness: Patient is a 88-year-old female presents to ED today via EMS for complaint of dizziness, nausea, vomiting. Patient states a few days ago she began having chest congestion and a productive cough. She contacted her primary care provider via phone who called her in doxycycline. Patient states she feels like this medication is making her ill as after she took her first dose she got nauseous and vomited. She states she has had dizziness x 7-8 months. States when she wakes up she has to use the wall and jump from object to object to hold onto to make it to the bathroom. Again this is reportedly chronic. She states she is also having some head pressure. She denies headache. No recent falls. She is not having any neck pain. No fevers. No acute neurologic complaints today. Onset (ago): day(s) Relieving factors: rest Exacerbating factors: movement Associated symptoms: Reports headache(s) (reports pressure), nausea and vomiting (x 1); Deny chest pain, confusion, dyspnea, malaise, rash, palpitations or syncope Treatments prior to arrival: none Review of Systems 2 Const: Denies: fever(s), chills, body aches, fatigue or malaise Eyes: Denies: change in vision or blurry vision Card: Denies: chest pain, palpitations, irregular heart rhythm, edema, swelling of feet/ankles, lightheadedness, syncope, pre-syncope, dyspnea on exertion or orthopnea Resp: Reports: productive cough and chest congestion; Denies: dyspnea, wheezing, pain on inspiration or hemoptysis GI: Reports: nausea and vomiting (x 1); Denies: abdominal pain, heartburn or diarrhea : Denies: flank pain or dysuria Musc: Denies: neck pain, back pain, extremity pain, extremity swelling or joint pain Skin/Breast: Denies: rash Neuro: Reports: headache(s) (reports pressure) and dizziness; Denies: numbness in extremities, weakness in extremities, sensory changes, lack of coordination, frequent falls, confusion, behavioral changes, Slurred speech present, difficulty communicating thoughts or seizure-like activity PFSH ED 2 PFSH: Medical History Hx of atrial fibrillation without current medication Allergic rhinitis Obesity (BMI 30-39.9) (~04/20/23) CKD stage G2/A2, GFR 60-89 and albumin creatinine ratio 30-299 mg/g Lumbar compression fracture Anxiety about health Insomnia due to medical condition Extensor tendon dislocation, nontraumatic, hand History of DVT of lower extremity Enrolled in chronic care management Degenerative disc disease Chronic steroid use Compression fracture Urinary tract infection with hematuria Arthritis Hill knees, shoulders, neck and Lumbar spine Bilateral lower extremity edema COPD (chronic obstructive pulmonary disease) Surgical History S/P insertion of IVC (inferior vena caval) filter Removed on 01/21/21 Hx of cataract surgery H/O local excision of skin lesion H/O hand surgery History of ankle surgery H/O arthroscopy Hx of cholecystectomy H/O: hysterectomy Family History Other Cancer Heart disease Hypertension Kidney disease Social History Smoking and tobacco/nicotine status: never used tobacco/nicotine Alcohol intake: never Substance/Drug Use: never Adopted: No Caregiver/support person: No Lives independently: Yes service: No Current occupational status: employed Do you think of yourself as: Straight/Heterosexual Current gender identity: Female Physical Exam 2 Const: COMMON NORMALS: no acute distress, patient oriented x3, no limitations, alert and well nourished OTHER: NIH of 0 HENMT: COMMON NORMALS: normocephalic and atraumatic HEAD & SCALP: normal to inspection, normocephalic and atraumatic Neck/C-Spine: COMMON NORMALS: full ROM, no lymphadenopathy, supple and no meningeal signs Chest: COMMONS NORMALS: normal inspection of the chest Resp: COMMON NORMALS: normal respiratory effort AUSCULTATION: rhonchi (mild-improved with coughing) and wheezes Cardio: COMMON NORMALS: regular rate RATE: regular rate and bradycardic GI: COMMON NORMALS: Normal to inspection, nondistended, normoactive bowel sounds present, Soft to palpation, non-tender, No hepatosplenomegaly present and no masses INSPECTION: Yes normal to inspection AUSCULTATION: Yes normoactive bowel sounds PALPATION: Yes Soft to palpation, No Tenderness to palpation present (GI), No Guarding due to palpation present (GI), No Rigid due to palpation and Yes No hepatosplenomegaly present : COMMON NORMALS: Yes no CVA tenderness BLADDER/KIDNEY EXAM: Yes no CVA tenderness Back/Pelvis: COMMON NORMALS: no CVA tenderness and thoracic and lumbar spine normal to inspection Extremity: COMMON NORMALS: normal to inspection, no clubbing, cyanosis or edema, no calf tenderness and no pedal edema GENERAL: Yes normal exam except as noted Neuro: ELSIE COMA SCALE: document GCS findings [place] coma scale eye opening: Spontaneous Elsie coma scale verbal response: Orientated [place] coma scale motor response: Obey commands [place] coma scale total score: 15 COMMON NORMALS: patient oriented x3, CN's II-XII intact bilaterally, moves all extremities, no focal motor deficits and no sensory deficits noted S ENSORIUM/ORIENTATION: Yes alert MENINGEAL SIGNS: Yes no meningeal signs M OTOR EXAM: 5/5 motor strength present throughout Skin: COMMON NORMALS: no rashes or lesions noted GENERAL SKIN EXAM: no rashes or lesions noted Course 2 Vital Signs: Vital signs: Vital Signs Temperature 97.5 F L 09/11/23 12:17 Pulse Rate 56 L 09/11/23 14:47 Respiratory Rate 18 09/11/23 14:36 Blood Pressure 148/63 09/11/23 16:15 Pulse Oximetry 100 09/11/23 15:55 Oxygen Delivery Me thod Nasal Cannula 09/11/23 15:55 Oxygen Flow Rate 2 09/11/23 15:55 MDM - General Adult Medical Decision Making Patient appears in no acute distress. Her main complaint is the nausea and vomiting secondary to doxycycline use. She is simply refusing to take any further of this medication. Blood work overall is nonactionable. Her CXR does show a probable left basilar hazy opacity. I will go ahead and switch her from Doxy to Levaquin for pneumonia coverage. UA looks clear. Orthostatics were negative. Patient states she would like to go home at this time. Return to ED precautions given. Lab Data 09/11/23 13:30 09/11/23 13:30 Radiology Impressions Chest X-Ray 09/11/23 12:40 IMPRESSION: Probable left basilar hazy opacity. This may be artifactual or could represent infiltrate, atelectasis, and/or small pleural effusion. Laboratory Results WBC 4.45 10^3/uL (3.29-11.43) 09/11/23 13:30 RBC 4.29 10^6/uL (3.85-5.65) 09/11/23 13:30 Hgb 13.40 g/dL (11.27-16.99) 09/11/23 13:30 Hct 43.8 % (36-47) 09/11/23 13:30 MCV 102.1 fl (85-98) H 09/11/23 13:30 MCH 31.2 pg (27-33) 09/11/23 13:30 MCHC 30.6 g/dL (30-55) 09/11/23 13:30 RDW 12.3 % (12.1-15.1) 09/11/23 13:30 Plt Count 162 10^3/cmm (157-399) 09/11/23 13:30 MPV 10.6 fL (7.4-10.4) H 09/11/23 13:30 Neut % (Auto) 69.0 % 09/11/23 13:30 Lymph % (Auto) 18.2 % 09/11/23 13:30 [place] % (Auto) 10.3 % 09/11/23 13:30 Eos % (Auto) 1.6 % 09/11/23 13:30 Baso % (Auto) 0.7 % 09/11/23 13:30 Neut # (Auto) 3.07 10^3/uL (1.8-7.7) 09/11/23 13:30 Lymph # (Auto) 0.8 10^3/uL (0.8-4.8) 09/11/23 13:30 [place] # (Auto) 0.5 10^3/uL (0.2-0.9) 09/11/23 13:30 Eos # (Auto) 0.1 10^3/uL (0.0-0.8) 09/11/23 13:30 Baso # (Auto) 0.0 10^3/uL (0.0-0.1) 09/11/23 13:30 Nucleated RBC % (auto) 0 % 09/11/23 13:30 Nucleated RBCs # 0.0 /100WBC 09/11/23 13:30 Sodium 143 mmol/L (136-145) 09/11/23 13:30 Potassium 4.1 mmol/L (3.5-5.1) 09/11/23 13:30 Chloride 107 mmol/L (98-107) 09/11/23 13:30 Carbon Dioxide 29 mmol/L (22-29) 09/11/23 13:30 Anion Gap 11.1 (5-19) 09/11/23 13:30 BUN 15 mg/dL (8-23) 09/11/23 13:30 Creatinine 0.9 mg/dL (0.5-0.9) 09/11/23 13:30 GFR Calculation Not Reportable 09/11/23 13:30 Glucose 83 mg/dL (65-115) 09/11/23 13:30 Calculated Osmolality 296 mOsm/kg (285-295) H 09/11/23 13:30 Calcium 8.7 mg/dL (8.5-10.5) 09/11/23 13:30 Total Bilirubin 0.3 mg/dL (0.15-1.2) 09/11/23 13:30 AST 15 U/L (0-32) 09/11/23 13:30 ALT 9 U/L (0-33) 09/11/23 13:30 Alkaline Phosphatase 62 U/L (35-105) 09/11/23 13:30 Total Protein 6.0 g/dL (6.6-8.7) L 09/11/23 13:30 Albumin 3.3 g/dL (3.5-5.2) L 09/11/23 13:30 Globulin 2.7 g/dL (1.3-4.6) 09/11/23 13:30 Procalcitonin 0.04 ng/mL (0-0.5) 09/11/23 13:30 Urine Color Yellow (Yellow) 09/11/23 16:14 Urine Appearance Clear (CLEAR) 09/11/23 16:14 Urine pH 6.5 (5-7) 09/11/23 16:14 Ur Specific [place] 1.005 (1.005-1.030) 09/11/23 16:14 Urine Protein Neg (Negative) 09/11/23 16:14 Urine Glucose (UA) Norm (Normal) 09/11/23 16:14 Urine Ketones 1+ (Negative) H 09/11/23 16:14 Urine Blood Neg (Negative) 09/11/23 16:14 Urine Nitrate Negative (Negative) 09/11/23 16:14 Urine Bilirubin Neg (Negative) 09/11/23 16:14 Urine Urobilinogen Norm mg/dL (Negative) 09/11/23 16:14 Ur Leukocyte Esterase Trace (Negative) H 09/11/23 16:14 Urine RBC None /hpf (0-2) 09/11/23 16:14 Urine WBC 0-4 /hpf (0-5) H 09/11/23 16:14 Ur Squamous Epith Cells 0-4 /hpf (0-5) H 09/11/23 16:14 Amorphous Sediment Not Reportable 09/11/23 16:14 Urine Bacteria Trace /hpf (NONE) 09/11/23 16:14 Adenovirus (PCR) Not detected (NOT DETECT) 09/11/23 12:49 C. pneumoniae DNA (PCR) Not detected (NOT DETECT) 09/11/23 12:49 Coronavirus 229E (PCR) Not detected (NOT DETECT) 09/11/23 12:49 Human Metapneumovir PCR Not detected (NOT DETECT) 09/11/23 12:49 Influenza A (H1) PCR Not detected (NOT DETECT) 09/11/23 12:49 Influ A (H1/09) PCR Not detected (NOT DETECT) 09/11/23 12:49 Influenza A (H3) PCR Not detected (NOT DETECT) 09/11/23 12:49 Influenza Type A (PCR) Not detected (NOT DETECT) 09/11/23 12:49 Influenza Type B (PCR) Not detected (NOT DETECT) 09/11/23 12:49 M. pneumoniae (PCR) Not detected (NOT DETECT) 09/11/23 12:49 Parainfluenza 1 (PCR) Not detected (NOT DETECT) 09/11/23 12:49 Parainfluenza 2 (PCR) Not detected (NOT DETECT) 09/11/23 12:49 Parainfluenza 3 (PCR) Not detected (NOT DETECT) 09/11/23 12:49 Parainfluenza 4 (PCR) Not detected (NOT DETECT) 09/11/23 12:49 RSV Type A (PCR) Not detected (NOT DETECT) 09/11/23 12:49 RSV Type B (PCR) Not detected (NOT DETECT) 09/11/23 12:49 Entero/Rhino (PCR) Not detected (NOT DETECT) 09/11/23 12:49 SARS-CoV-2 (PCR) Not detected (NOT DETECT) 09/11/23 12:49 All radiology interpretation(s) finalized by discharge Discharge Plan Discharge Patient Disposition: Home Clinical Impression: Dizziness Pneumonia Qualifiers: Pneumonia type: due to unspecified organism Laterality: left Lung location: u nspecified part of lung Qualified Code(s): J18.9 - Pneumonia, unspecified organism Condition: Stable Prescriptions: New levofloxacin 500 mg tablet 500 mg PO DAILY 5 Days Qty: 5 0RF Discontinued doxycycline hyclate 100 mg tablet 100 mg PO BID Rx Instructions: for 7 days (rx filled 09/08/23) No Action trazodone 50 mg tablet 50 mg PO BEDTIME fluticasone propion-salmeterol [Advair Diskus] 500-50 mcg/dose blister with device 1 inh inhalation Q12H Qty: 1 0RF (DME) Bedrail See Rx Instructions .Route .MEDSUPPLY Qty: 1 0RF Rx Instructions: As directed meclizine 25 mg tablet 25 mg PO TID PRN (Reason: Dizziness) Qty: 90 1RF metoprolol succinate 25 mg tablet extended release 24 hr 50 mg PO DAILY albuterol sulfate [ProAir HFA] 90 mcg/actuation HFA aerosol inhaler 1 inh inhalation QID PRN (Reason: Shortness Of Breath) Rx Instructions: 340B may sub ventolin prednisone 10 mg tablet See Rx Instructions .ROUTE .COMPLEX Rx Instructions: 30mg po daily for 3 days 20mg po daily for 3 days 10mg po daily for 3 days tramadol 50 mg tablet 50 mg PO Q8H PRN (Reason: Pain) Vitamin C 500 mg Tablet 500 mg PO DAILY Vitamin D3 125 mcg (5,000 unit) Tablet 125 mcg PO DAILY aspirin 81 mg tablet,delayed release (DR/EC) 81 mg PO BEDTIME nitroglycerin 0.4 mg tablet, sublingual 0.4 mg sublingual Q5M PRN (Reason: chest pain) Qty: 20 0RF Rx Instructions: do not exceed 3 doses per episode Discharge Orders: Discharge ED (Routine); Ordered 09/11/23 Ordered By: Claribel Gould Referrals: Josh Monk FNP [Primary Care Provider] - Coding Level of Care Code ED Power Crane Operator for Evangelista Britt
--- NOTE | 2023-09-11 13:12 | ECG_ITS ---
[facility] Test Date: 2023-09-11 Pat Name: Brady Nails Department: Room: Gender: Female External Grinder: : 1935 Requested By: Claribel Gould Order Number: [id number] Estefani MD: Mike Caceres M.D. Measurements Intervals [place] Rate: 46 P: 63 UT: 114 QRS: 58 QRSD: 69 T: 35 QT: 428 QTc: 376 Interpretive Statements SINUS BRADYCARDIA WITH SHORT UT INTERVAL LOW QRS VOLTAGE IN PRECORDIAL LEADS [QRS DEFLECTION < 1.0 mV IN CHEST LEADS] SEPTAL MYOCARDIAL INFARCTION , OF INDETERMINATE AGE [40+ ms Q WAVE IN V1/V2] Compared to ECG 06/08/2023 15:13:33 Low QRS voltage now present Myocardial infarct finding now present Sinus rhythm no longer present Electronically Signed On 09-11-2023 15:42:11 CDT by Mike Caceres M.D. [email or web address]
--- NOTE | 2023-09-11 13:16 | PC.PHAR ---
pt states she takes care of her own medications-pt states she is no longer taking lipitor 20mg hs ext shows last filled 06/10/23 90d/s-pt states she takes metoprolol succinate er 25mg two tabs (50mg) qam states the dr had changed it to 50mg qam pt brought in med bottle dated 04/20/23 90d/s er 25mg daily #100- pt states has been taking two tabs to =50mg-pt states she still uses her advair diskus 1p bid ext shows last filled 04/26/23 30d/s-notes are made in the pharmacy comments
[2023-09-11 13:59] LABS: Basophils % 0.7 %; Eosinophils # 0.1 10^3/uL (0.0-0.8); Eosinophils % 1.6 %; Hematocrit 43.8 % (36-47); Lymphocytes # 0.8 10^3/uL (0.8-4.8); Lymphocytes % 18.2 %; Mean Corpuscular HGB Conc 30.6 g/dL (30-55); Mean Corpuscular Hemoglobin 31.2 pg (27-33); Mean Corpuscular Volume 102.1 fl (85-98); Mean Platelet Volume 10.6 fL (7.4-10.4); Monocytes # 0.5 10^3/uL (0.2-0.9); Monocytes % 10.3 %; Neutrophils # 3.07 10^3/uL (1.8-7.7); Nucleated Red Blood Cells % 0 %; Platelet Count 162 10^3/cmm (157-399); Red Blood Count 4.29 10^6/uL (3.85-5.65); Red Cell Distribution Width 12.3 % (12.1-15.1); White Blood Count 4.45 10^3/uL (3.29-11.43)
[2023-09-11 14:13] LABS: Alanine Aminotransferase 9 U/L (0-33); Albumin Level 3.3 g/dL (3.5-5.2); Alkaline Phosphatase 62 U/L (35-105); Anion Gap 11.1 (5-19); Aspartate Amino Transferase 15 U/L (0-32); Blood Urea Nitrogen 15 mg/dL (8-23); Calcium 8.7 mg/dL (8.5-10.5); Carbon Dioxide 29 mmol/L (22-29); Chloride 107 mmol/L (98-107); Globulin 2.7 g/dL (1.3-4.6); Glucose 83 mg/dL (65-115); Osmolality Calculated 296 mOsm/kg (285-295); Potassium 4.1 mmol/L (3.5-5.1); Sodium 143 mmol/L (136-145); Total Bilirubin 0.3 mg/dL (0.15-1.2)
[2023-09-11 14:19] LABS: Procalcitonin 0.04 ng/mL (0-0.5)
[2023-09-11 14:36] VITALS: BP 173/74; PULSE 53; RESP 18; O2SAT 99
[2023-09-11] MEDS: sodium chloride 0.9% 1,000 ML 999 ML IV (14:44)
[2023-09-11] MEDS: meclizine 25 mg tablet PO (14:44)
[2023-09-11 14:47] VITALS: BP 146/78; BP 150/60; BP 177/75; PULSE 55; PULSE 56; PULSE 64
[2023-09-11 14:53] LABS: Adenovirus Not Detected (NOT DETECT); Chlamydia Pneumoniae Not Detected (NOT DETECT); Coronavirus 229E,HKU1,NL63,OC4 Not Detected (NOT DETECT); Human Metapneumovirus Not Detected (NOT DETECT); Human Rhinovirus/Enterovirus Not Detected (NOT DETECT); Influenza A Not Detected (NOT DETECT); Influenza A H1 Not Detected (NOT DETECT); Influenza A H1-2009 Not Detected (NOT DETECT); Influenza A H3 Not Detected (NOT DETECT); Influenza B Not Detected (NOT DETECT); Mycoplasma Pneumoniae Not Detected (NOT DETECT); Parainfluenza Virus Type 1 Not Detected (NOT DETECT); Parainfluenza Virus Type 2 Not Detected (NOT DETECT); Parainfluenza Virus Type 3 Not Detected (NOT DETECT); Parainfluenza Virus Type 4 Not Detected (NOT DETECT); Respiratory Syncytial Virus A Not Detected (NOT DETECT); Respiratory Syncytial Virus B Not Detected (NOT DETECT); SARS-COV-2 Not Detected (NOT DETECT)
[2023-09-11 15:55] VITALS: BP 148/63; O2SAT 100
[2023-09-11 16:15] VITALS: BP 148/63
[2023-09-11 16:44] LABS: Add Urine Microscopic? YES; Bilirubin Urine Neg (Negative); Blood Urine Neg (Negative); Glucose Urine UA Norm (Normal); Ketones Urine 1+ (Negative); Leukocyte Esterase Urine Trace (Negative); Nitrate Urine Negative (Negative); Protein Urine Neg (Negative); Specific Gravity, Urine 1.005 (1.005-1.030); Urine Appearance Clear (CLEAR); Urine Color Yellow (Yellow); Urobilinogen Urine Norm (Negative); pH Urine 6.5 (5-7)
[2023-09-11 16:45] LABS: Add Urine Culture? No; Bacteria Urine TRACE /hpf; Squamous Epithelial Cell Urine 0-4 /hpf (0-5); WBC Urine 0-4 /hpf (0-5)
== END 2023-09-11 17:36 | disposition home or self-care (01) ==
PROVIDERS: Emergency Provider Physician Assistant; PCP Nurse Practitioner Family
DX: R42 Dizziness and giddiness (principal); J18.9 Pneumonia, unspecified organism; Z79.82 Long term (current) use of aspirin; Z11.52 Encounter for screening for COVID-19; N18.2 Chronic kidney disease, stage 2 (mild); J44.9 Chronic obstructive pulmonary disease, unspecified
CPT/HCPCS: 36415; 70450; 71045; 80053; 81001; 84145; 85025; 87486; 87581; 87633; 93005; 96360; 99285; J7030; J8597

== ENCOUNTER → 2024-06-25 09:47 | Outpatient (BNVA) | payer MEDICARE, SELFPAY | PROVIDERS: PCP Nurse Practitioner Family; Visit Provider Nurse Practitioner Family | DX: B37.31 Acute candidiasis of vulva and vagina; D64.9 Anemia, unspecified; N30.00 Acute cystitis without hematuria; M54.32 Sciatica, left side | CPT/HCPCS: 81000; 85025; 87070; 87086; 87205 ==

== ENCOUNTER → 2024-06-27 10:44 | Outpatient (BNVA) | payer MEDICARE, SELFPAY | PROVIDERS: PCP Nurse Practitioner Family; Visit Provider Internal Medicine Cardiovascular Disease | DX: R07.9 Chest pain, unspecified (principal) | CPT/HCPCS: 93005 ==

== ENCOUNTER → 2024-09-12 09:04 | Outpatient (BNVA) | payer MEDICARE, SELFPAY | PROVIDERS: PCP Nurse Practitioner Family; Visit Provider Nurse Practitioner Family | DX: N39.0 Urinary tract infection, site not specified (principal) | CPT/HCPCS: 81000 ==

== ENCOUNTER → 2024-11-25 13:34 | Outpatient (BNVA) | payer MEDICARE, SELFPAY | PROVIDERS: PCP Nurse Practitioner Family; Visit Provider Nurse Practitioner Family | DX: I10 Essential (primary) hypertension (principal); E55.9 Vitamin D deficiency, unspecified | CPT/HCPCS: 80053; 80061; 82306; 84443 ==

== ENCOUNTER → 2024-12-18 14:07 | Outpatient (BNVA) | payer MEDICARE, SELFPAY | PROVIDERS: PCP Nurse Practitioner Family; Visit Provider Nurse Practitioner Family | DX: R35.0 Frequency of micturition (principal); N39.0 Urinary tract infection, site not specified | CPT/HCPCS: 81000; 87086 ==

== ENCOUNTER → 2024-12-26 10:39 | Outpatient (BNVA) | payer MEDICARE, SELFPAY | PROVIDERS: PCP Nurse Practitioner Family; Visit Provider Nurse Practitioner Family | DX: I48.91 Unspecified atrial fibrillation (principal); Z79.82 Long term (current) use of aspirin; Z86.718 Personal history of other venous thrombosis and embolism; Z86.711 Personal history of pulmonary embolism; Z87.891 Personal history of nicotine dependence | CPT/HCPCS: 93005; 99214 ==

== ENCOUNTER → 2025-01-16 09:55 | Outpatient (BNVA) | payer MEDICARE, SELFPAY | PROVIDERS: PCP Nurse Practitioner Family; Visit Provider Nurse Practitioner Family | DX: I10 Essential (primary) hypertension (principal); R53.83 Other fatigue; E55.9 Vitamin D deficiency, unspecified | CPT/HCPCS: 80053; 82306; 85025 ==

== ENCOUNTER → 2025-02-20 11:06 | Outpatient (BNVA) | payer MEDICARE, SELFPAY | PROVIDERS: PCP Nurse Practitioner Family; Visit Provider Nurse Practitioner Family | DX: N39.0 Urinary tract infection, site not specified (principal) | CPT/HCPCS: 81000; 87086 ==

== ENCOUNTER → 2025-03-10 09:41 | Outpatient (BNVA) | payer MEDICARE, SELFPAY | PROVIDERS: PCP Nurse Practitioner Family; Visit Provider Nurse Practitioner Family | DX: N39.0 Urinary tract infection, site not specified (principal) | CPT/HCPCS: 81000; 87086 ==

== ENCOUNTER 2025-04-03 08:21 | Outpatient (CLI) | payer MEDICARE, SELFPAY ==
--- NOTE | 2025-04-03 08:27 | XR_ITS ---
WS: [id number] Exam: XR chest 2V* [id number] Date/Time of Exam: 04/03/2025 8:27 AM Reason For Exam: R06.00 - Dyspnea, unspecified Comparison 09/11/2023. The lungs are hyperinflated. No consolidating infiltrates. Plaque atelectasis seen in the lingula. No pleural effusion. Normal cardiomediastinal silhouette. Bony structures are intact. XR/XR chest 2V* [id number] IMPRESSION: 1. No acute cardiopulmonary finding.
--- NOTE | 2025-04-03 10:00 | NM_ITS ---
WS: [id number] NUCLEAR MEDICINE VENTILATION/PERFUSION LUNG SCAN HISTORY: Short of breath, history of DVT. COMPARISON: 09/19/2020, chest radiograph 04/03/2025 TECHNIQUE: Ventilation: 32.5 mCi of Technetium 99 DTPA aerosol inhaled. Perfusion: 5.4 mCi of technetium 99m MAA IV. Ventilatory portion is very heterogeneous. There is deposition of radionuclide centrally. There are multiple areas of decreased ventilation. Perfusion exam is improved but still heterogeneous as compared to the ventilation. Heart is enlarged. There is a matched segmental defect in the LEFT mid to upper lung. No additional matched defects are identified. NM/NM pul vent and perfus* [id number] IMPRESSION: Study is limited by patient's lung disease and central deposition of radionucli de. There is a single segmental matched defect. Low probability for pulmonary e mbolism but study is limited. If possible recommend follow-up CT angiogram of t he chest.
== END 2025-04-03 08:22 | disposition home or self-care (01) ==
PROVIDERS: PCP Nurse Practitioner Family; Visit Provider Nurse Practitioner Family
DX: R79.89 Other specified abnormal findings of blood chemistry (principal); R06.00 Dyspnea, unspecified; I51.7 Cardiomegaly; J98.4 Other disorders of lung; R91.8 Other nonspecific abnormal finding of lung field; J98.11 Atelectasis
CPT/HCPCS: 71046; 78014; A9540; A9567

== ENCOUNTER → 2025-04-04 10:35 | Outpatient (BNVA) | payer MEDICARE, SELFPAY | PROVIDERS: PCP Nurse Practitioner Family; Visit Provider Internal Medicine Cardiovascular Disease | DX: I82.409 Acute embolism and thrombosis of unspecified deep veins of unspecified lower extremity (principal); I48.91 Unspecified atrial fibrillation; M79.89 Other specified soft tissue disorders; I10 Essential (primary) hypertension; M19.90 Unspecified osteoarthritis, unspecified site; Z87.891 Personal history of nicotine dependence | CPT/HCPCS: 99214 ==

== ENCOUNTER → 2025-04-17 14:16 | Outpatient (BNVA) | payer MEDICARE, SELFPAY | PROVIDERS: PCP Nurse Practitioner Family; Referring Provider Nurse Practitioner Family; Visit Provider Internal Medicine | DX: J44.89 Other specified chronic obstructive pulmonary disease (principal); Z86.718 Personal history of other venous thrombosis and embolism; Z79.82 Long term (current) use of aspirin; Z87.891 Personal history of nicotine dependence; J44.9 Chronic obstructive pulmonary disease, unspecified; J44.1 Chronic obstructive pulmonary disease with (acute) exacerbation | CPT/HCPCS: 99204; Q3014 ==